=== PATIENT | female | born 1965 | race African-American/Black ===

== ENCOUNTER 2021-10-09 09:23 | Outpatient (CLI) | payer OTHER, SELFPAY ==
[2021-10-09 10:08] LABS: Appearance Urine Clear (Clear); Bilirubin Urine Negative (Negative); Blood Urine Negative (Negative); Color Urine Yellow (Yellow); Glucose Urine UA Negative (Negative); Ketones Urine Negative (Negative); Leukocyte Esterase Ur 2+ LEU/UL (Negative); Nitrate Urine Positive (Negative); Protein Urine Negative (Negative); Specific Grav Ur 1.015 (1.001-1.035); Urobilinogen Urine 0.2 mg/dL (<2.0); pH Urine 5.5 (5.0-9.0)
[2021-10-09 10:10] LABS: Alanine Aminotransferase 20 U/L (6-35); Albumin Level 4.3 g/dL (3.5-5.1); Alkaline Phosphatase 112 U/L (38-126); Anion Gap 7 mmol/L (8-16); Aspartate Amino Transferase 32 U/L (14-36); Bilirubin,Total < 0.1 mg/dL (0.2-1.3); Blood Urea Nitrogen 26 mg/dL (7-17); Carbon Dioxide 30 mmol/L (22-30); Chloride 101 mmol/L (98-107); Estimated Glomerular Filt Rate 31; Glucose 105 mg/dL (65-110); Potassium 3.4 mmol/L (3.4-5.0); Sodium 138 mmol/L (137-145)
[2021-10-09 11:24] LABS: Mucus Urine Rare /lpf; Squamous Epithelial Cell Urine Occasional /hpf (Few); WBC Urine 51-75 /hpf
[2021-10-09 11:37] LABS: Add Urine Microscopic? YES
== END 2021-10-09 09:24 | disposition home or self-care (01) ==
LOC: ANHLAB 09:26
PROVIDERS: PCP Family Medicine; Visit Provider Family Medicine
DX: N39.44 Nocturnal enuresis (principal)
CPT/HCPCS: 36415; 80053; 81001; 87077; 87086; 87088; 87186

== ENCOUNTER 2024-12-19 02:30 | Inpatient (IN) | payer OTHER, SELFPAY ==
[2024-12-19] VITALS (29 sets, daily range): BP systolic 95–119; BP diastolic 45–89; PULSE 70–94; RESP 15–28; TEMP 36.7–37.7; O2SAT 97–100; BMI 20.8
--- NOTE | 2024-12-19 | ECHO_ITS ---
Patient Info Name: Jessica Carpio Age: 59 years : 1965 Gender: Female Ht: 63 in Wt: 114 lbs BSA: 1.51 m2 HR: 78 bpm BP: 117 / 89 mmHg Technical Quality: Good Exam Date: 12/19/2024 9:01 AM Patient Status: I Admit Date: 12/19/2024 Exam Type: CA echo doppler color flow Complete two-dimensional, color flow and Doppler transthoracic echocardiogram is performed. Staff Referring Physician: Costa Oliva Process Coordinator: Brandi Ellison Attending Provider: Kal Tran Summary 1. Complete two-dimensional, color flow and Doppler transthoracic echocardiogram is performed. 2. Left ventricular systolic function is normal, estimated at 60-65. 3. There is mildly increased left ventricular wall thickness. 4. The left ventricular diastolic function is grade II diastolic dysfunction. 5. Left atrial chamber dimension is mildly enlarged. 6. The mitral valve has thickened leaflets. 7. There is mild mitral valve stenosis. 8. There is moderate mitral valve regurgitation. 9. There is mild to moderate tricuspid valve regurgitation. 10. Moderate pulmonary hypertension, estimated pulmonary arterial systolic pressure is 54 mmHg. Left Ventricle Left ventricular chamber dimension is normal. Left ventricular systolic function is normal, estimated at 60-65. There is mildly increased left ventricular wall thickness. Left ventricular septal wall motion is normal. The left ventricular diastolic function is grade II diastolic dysfunction. Right Ventricle Right ventricular chamber dimension is normal. Right ventricular systolic function is normal. Left Atria Left atrial chamber dimension is mildly enlarged. Right Atria Right atrial chamber dimension is normal. Aortic Valve The aortic valve is trileaflet. There is no aortic valve sclerosis. There is no aortic valve stenosis. There is no aortic valve regurgitation. Pulmonic Valve The pulmonic valve is normal. There is no pulmonic valve stenosis. There is mild pulmonic regurgitation. Mitral Valve The mitral valve has thickened leaflets. There is mild mitral valve stenosis. There is moderate mitral valve regurgitation. Tricuspid Valve The tricuspid valve leaflets are normal. There is no significant tricuspid valve stenosis. There is mild to moderate tricuspid valve regurgitation. Moderate pulmonary hypertension, estimated pulmonary arterial systolic pressure is 54 mmHg. Pericardium/Pleural The pericardium appears normal. There is no pericardial effusion. Inferior Vena Cava Normal inferior vena cava with >50% collapse upon inspiration consistent with normal right atrial pressure, 5 mmHg. Aorta The aortic root size at the sinus of Valsalva is normal. The prox ascending aorta size is normal. Left Ventricular Outflow Tract Name Value Normal LVOT 2D LVOT Diameter 1.7 cm LVOT Doppler LVOT Peak Velocity 143 cm/s LVOT Peak Gradient 8 mmHg LVOT Mean Gradient 5 mmHg LVOT VTI 28 cm LVOT Stroke Volume 63 ml LVOT CO 4.9 l/min LVOT CI 3.3 l/min/m2 Pulmonic Valve Name Value Normal RVOT Doppler RVOT Peak Velocity 79 cm/s RVOT Peak Gradient 2 mmHg PV Doppler PV Peak Velocity 123 cm/s PV Peak Gradient 6 mmHg Mitral Valve Name Value Normal MV Doppler MV Peak Gradient 19 mmHg MV Mean Gradient 10 mmHg MV Area (Cont Eq VTI) 0.8 cm2 MV Diastolic Function MV E Peak Velocity 174 cm/s MV A Peak Velocity 179 cm/s MV E/A 1.0 MV Decel Time (PW) 470 ms MV Annular TDI MV E/e' (Septal) 26.2 MV E/e' (Lateral) 24.6 MV E/e' (Average) 25.4 Tricuspid Valve Name Value Normal TV Regurgitation Doppler TR Peak Velocity 348 cm/s TR Peak Gradient 49 mmHg Estimated PAP/RSVP RA Pressure 5 mmHg <=5 PA Systolic Pressure 54 mmHg <36 RV Systolic Pressure 54 mmHg <36 TV Annular TDI TV Lateral Anjelica s' Velocity 10.1 cm/s >=9.5 Aortic Valve Name Value Normal AV Doppler AV Peak Velocity 188 cm/s AV Peak Gradient 14 mmHg AV Area (Cont Eq Suresh) 1.7 cm2 AV DI (Suresh) 0.76 AV Regurgitation 2D LVOT Area 2.2 cm2 Ventricles Name Value Normal LV Dimensions 2D/MM IVS Diastolic Thickness (2D) 0.7 cm 0.6-1.0 LVID Diastole (2D) 4.3 cm 3.8-5.2 LVIW Diastolic Thickness (2D) 1.1 cm 0.6-0.9 LVID Systole (2D) 2.8 cm 2.2-3.5 LVOT Diameter 1.7 cm LV Mass (2D Cubed) 124.96 g 67.00-162.00 LV Mass Index (2D Cubed) 83 g/m2 43-95 Relative Wall Thickness (2D) 0.51 <=0.42 LV Fractional Shortening/Ejection Fraction 2D/MM LV Fractional Shortening (2D) 35 % 27-45 LV EF (2D Teichholz) 64 % LV Diastolic Volume (4C MOD) 72 ml LV EF (4C MOD) 66 % LV Diastolic Volume (2C MOD) 71 ml LV EF (2C MOD) 64 % LV Diastolic Volume (BP MOD) 73 ml 46-106 LV Diastolic Volume Index (BP MOD) 48 ml/m2 29-61 LV Systolic Volume (BP MOD) 27 ml 14-42 LV Systolic Volume Index (BP MOD) 18 ml/m2 8-24 LV EF (BP MOD) 63 % 54-74 LV Diastolic Length (4C) 6.8 cm LV Systolic Length (4C) 6.1 cm LV Stroke Volume (4C MOD) 48 ml Atria Name Value Normal LA Dimensions LA Volume (4C A-L) 75 ml LA Volume (BP A-L) 76 ml RA Dimensions RA Systolic [place] Length (4C) 4.4 cm 2.2-2.8 RA Area (4C) 11.7 cm2 <=18.0 Report Signatures
--- NOTE | ~2024-12-19 | XR_ITS ---
EXAMINATION: XR chest 2V, 12/19/2024 3:05 CDT HISTORY: CHEST PAIN, SOB COMPARISON: No comparisons available. Technique: 2 views obtained. Findings: Scattered bilateral small infiltrates. No pneumothorax. Heart is normal size. Mediastinal and hilar contours are within normal limits. Bony thorax no acute abnormality. Impression: Early bilateral pneumonia Reviewed, dictated and finalized at location A. Impression: Early bilateral pneumonia
--- NOTE | ~2024-12-19 | CT_ITS ---
EXAMINATION: CTA chest PE protocol, 12/19/2024 4:15 CDT HISTORY: Sudden onset Cp radiating to back COMPARISON: No comparisons available. TECHNIQUE: CTA examination is obtained with contrast CTA examination technique is performed with arterial phase of contrast-enhancement. 3-D reconstruction with thin MIP axial and MPR coronal imaging is provided Isovue 300, 92cc injected IV. One or more of the following dose reduction techniques were used: automated exposure control, adjustment of the mA and/or kV according to patient size, use of iterative reconstruction technique. FINDINGS: No significant coronary calcification is present ([id number]) LUNGS: The contrast bolus is adequate, There is no pulmonary embolism identified. Tracheomalacia. No bronchiectasis. Moderate emphysematous changes. Moderate pulmonary fibrotic changes with honeycombing noted. Scattered bilateral small infiltrates are noted with associated bilateral areas of linear ate lectasis. There is more focal infiltrate with bronchial wall thickening noted in the right upper lobe. HEART AND PERICARDIUM: Within normal limits. AORTA: Normal caliber aorta.. PULMONARY ARTERIES: No pulmonary embolism ADENOPATHY/MEDIASTINUM: None. LIMITED VIEWS OF THE ABDOMEN: Within the visualized abdomen there is atrophy of the right kidney. Cholelithiasis. OSSEOUS STRUCTURES: No sclerotic or lytic lesions. No acute rib fractures identified. OVERLYING SOFT TISSUES: Unremarkable. THYROID: The thyroid is unremarkable. IMPRESSION: Negative for pulmonary embolism. Bilateral probable bronchopneumonia superimposed on chronic lung disease. Follow-up recommended to assess Reviewed, dictated and finalized at location A. IMPRESSION: Negative for pulmonary embolism. Bilateral probable bronchopneumonia superimpos ed on chronic lung disease. Follow-up recommended to assess
--- NOTE | 2024-12-19 02:36 | ECG_ITS ---
Test Date: 2024-12-19 02:33:38 Measurements Intervals [place] Rate: 79 P: 46 VA: 158 QRS: 12 QRSD: 90 T: 16 QT: 364 QTc: 418 Interpretive Statements SINUS RHYTHM POSSIBLE LEFT ATRIAL ENLARGEMENT ST ELEVATION IN DIFFUSE LEADS, PROBABLY EARLY REPOLARIZATION BORDERLINE ECG No previous ECG available for comparison Electronically Signed On 12-19-2024 08:12:20 CDT by Elfego Degroot D.O.
[2024-12-19 02:55] LABS: Hematocrit 35.0 % (37.0-47.0); Hemoglobin 10.8 g/dL (12.0-15.0); Immature Granulocyte Percent A 0.4 % (0-0.5); Lymphocytes Absolute Auto 0.68 K/mm3 (0.9-3.2); Mean Corpuscular HGB Conc 30.9 g/dl (32-36); Mean Corpuscular Hemoglobin 26.7 pg (26-34); Mean Corpuscular Volume 86.4 fl (80-100); Nucleated Red Blood Cells Absolute Auto 0.000 K/mm3 (0.0-0.012); Nucleated Red Blood Cells Perc 0.0 % (0.0-0.2); Platelet Count Result 239 k/mm3 (150-375); Red Blood Count 4.05 M/mm3 (4.2-5.4); White Blood Count 14.8 K/mm3 (4.5-10.0)
[2024-12-19 03:06] LABS: Alanine Aminotransferase 32 U/L (6-35); Albumin Level 4.4 g/dL (3.5-5.1); Alkaline Phosphatase 91 U/L (38-126); Anion Gap 10 mmol/L (4-12); Aspartate Amino Transferase 56 U/L (14-36); Bilirubin,Total 0.2 mg/dL (0.2-1.3); Blood Urea Nitrogen 34 mg/dL (7-17); Calcium 9.3 mg/dL (8.4-10.2); Carbon Dioxide 25 mmol/L (22-30); Chloride 102 mmol/L (98-107); Estimated CRCL calculation 22 ml/min; Estimated Glomerular Filt Rate 25; Glucose 135 mg/dL (65-110); Lipase 35 U/L (23-300); Potassium 4.3 mmol/L (3.4-5.0); Sodium 137 mmol/L (137-145); Total Protein 7.4 g/dL (6.3-8.2)
[2024-12-19 03:09] LABS: INR 1.0; Prothrombin Time 13.0 Seconds (11.1-14.7)
[2024-12-19 03:10] LABS: Partial Thromboplastin Time 26.0 Seconds (22.3-36.8)
[2024-12-19 03:18] LABS: Troponin I < 0.012 ng/mL (0.000-0.034)
[2024-12-19] MEDS: ACETAMINOPHEN 500 MG TABLET 1000 MG PO (04:40)
[2024-12-19 05:20] LABS: NT Pro B Type Natriuretic Pept 1880 pg/mL (19.9-100)
--- NOTE | 2024-12-19 05:38 | ECG_ITS ---
Test Date: 2024-12-19 05:48:37 Measurements Intervals [place] Rate: 87 P: 21 RI: 148 QRS: 33 QRSD: 85 T: 37 QT: 343 QTc: 413 Interpretive Statements SINUS RHYTHM ST ELEVATION IN DIFFUSE LEADS- PROBABLY EARLY REPOLARIZATION BORDERLINE ECG Compared to ECG 12/19/2024 02:33:38 NO SIGNIFICANT CHANGE Electronically Signed On 12-19-2024 08:13:44 CDT by Elfego Degroot D.O.
--- NOTE | 2024-12-19 05:43 | ED_ITS ---
HPI - General Adult General Chief complaint: Chest Pain <Costa Oliva MD - Last Filed: 12/19/24 07:08> Stated complaint: chest pain <Costa Oliva MD - Last Filed: 12/19/24 07:08> Time Seen by Provider: 12/19/24 03:30 <Costa Oliva MD - Last Filed: 12/19/24 07:08> History of Present Illness HPI narrative: This is a 59-year-old female with a history of lupus presenting for chest pain. Patient says that and will 30 a.m. she developed a sharp pain across her chest radiating into her back. It woke her from sleep. It was severe but is now improving. It is worse with deep breaths. It is worse when she leans forward. Is not associated exertion, diaphoresis or vomiting. No fevers productive cough or viral symptoms. No GI symptoms. Patient takes hydroxychloroquine for her lupus. No history of lupus pleurisy. <Costa Oliva MD - Last Filed: 12/19/24 07:08> Related Data Home medications: Home Medications ?Medication ?Instructions ?Recorded ?Confirmed ?Last Taken ?Type acyclovir 800 mg tablet 800 mg PO 02/25/23 11/26/24 Unknown History atorvastatin 20 mg tablet 20 mg PO 02/25/23 11/26/24 U nknown History furosemide 40 mg tablet 40 mg PO 02/25/23 11/26/24 U nknown History gabapentin 600 mg tablet 600 mg PO 02/25/23 11/26/24 Unknown History hydroxychloroquine 200 mg tablet mg PO 02/25/23 Unknown History hydroxyzine pamoate 25 mg capsule 25 mg PO QHS 3 11/26/24 Unknown History linaclotide 72 mcg capsule mcg PO 02/25/23 11/26/24 Un known History (Juanazess) lisinopril 5 mg tablet mg PO 02/25/23 11/26/24 Unkn own History omeprazole 40 mg capsule,delayed mg PO 02/25/23 Unknown History release oxybutynin chloride 10 mg mg PO 02/25/23 11/26/24 Unkn own History tablet,extended release 24 hr tramadol 50 mg tablet mg PO 02/25/23 11/26/24 Unkn own History varenicline tartrate 1 mg tablet 1 mg PO ONCE 12/19/24 12/19/24 Unknown History <Costa Oliva MD - Last Filed: 12/19/24 07:08> Allergies/adverse reactions: Allergies Allergy/AdvReac Type Severity Reaction Status Date / Time No Known Allergies Allergy Verified 12/19/24 02:36 <Costa Oliva MD - Last Filed: 12/19/24 07:08> [facility] Past Medical History Medical History: Medical History Bowel obstruction History of systemic lupus erythematosus (SLE) History of depression History of hypertension <Costa Oliva MD - Last Filed: 12/19/24 07:08> Surgical History Surgical History: Surgical History History of appendectomy H/O foot surgery History of tonsillectomy <Costa Oliva MD - Last Filed: 12/19/24 07:08> Social History Social History: Social History Smoking status: Current every day smoker Tobacco type: cigarettes Alcohol intake: current Alcohol use details: occasional Substance use: never Current Housing: Decline to Answer Concerned About Future Housing: Decline to Answer Difficulty Paying Gas/Electric Bills: Decline to Answer Difficulty Paying for Meds: Decline to Answer Currently Unemployed: Decline to Answer Living arrangements: with family Occupation/Education: occupation Gender identity (if verbalized by the patient): Female <Costa Oliva MD - Last Filed: 12/19/24 07:08> Exam 2 Narrative: APPEARANCE: Patient appears uncomfortable Head: atraumatic. EYES: EOMI, NOSE: Atraumatic NECK: Trachea midline RESPIRATORY: No increased rate breathing, clear to auscultation, friction rub in the left lower lobe CARDIOVASCULAR: RRR, no peripheral edema ABDOMINAL: Non-distended soft nontender MUSCULOSKELETAl: No obvious deformities NEURO: Alert. Moving 4/4 extremities SKIN:: Hot to touch PSYCHIATRIC: Normal affect <Costa Oliva MD - Last Filed: 12/19/24 07:08> Course Vital Signs Vital signs: Vital Signs Temperature 98.0 F 12/19/24 02:29 Pulse Rate 82 12/19/24 02:29 Respiratory Rate 18 12/19/24 02:29 Blood Pressure 118/63 12/19/24 02:29 Pulse Oximetry 99 12/19/24 02:29 Oxygen Delivery Room Air 12/19/24 02:29 Temperature 98.6 F 12/19/24 07:38 Pulse Rate 78 12/19/24 07:38 Respiratory Rate 17 12/19/24 07:38 Blood Pressure 119/69 12/19/24 07:38 Pulse Oximetry 97 12/19/24 07:38 Oxygen Delivery Room Air 12/19/24 02:37 <Costa Oliva MD - Last Filed: 12/19/24 07:08> Vital Signs Temperature 98.0 F 12/19/24 02:29 Pulse Rate 82 12/19/24 02:29 Respiratory Rate 18 12/19/24 02:29 Blood Pressure 118/63 12/19/24 02:29 Pulse Oximetry 99 12/19/24 02:29 Oxygen Delivery Room Air 12/19/24 02:29 Temperature 98.6 F 12/19/24 07:38 Pulse Rate 78 12/19/24 07:38 Respiratory Rate 17 12/19/24 07:38 Blood Pressure 119/69 12/19/24 07:38 Pulse Oximetry 97 12/19/24 07:38 Oxygen Delivery Room Air 12/19/24 02:37 <Art Rose MD - Last Filed: 12/19/24 08:16> Medical Decision Making MDM Narrative Medical decision making narrative: -Course: 59-year-old female with lupus presenting with sudden pleuritic chest pain. CTA-PE was negative PE. It showed interstitial thickening and scarring in the right upper lobe with possible overlying infection. No pleural effusions. Negative for dissection or aneurysm. No cardiomegaly. White count was elevated 14.8. EKG with diffuse ST elevations, with [place] depressions and reciprocal changes in AVR which are concerning for pericarditis. Patient was then re-evaluated and is now hot to the touch. Temperature at 99.9? and that was after she had already received Tylenol. Blood pressures are 102/60. Patient started on ceftriaxone and doxycycline to cover pneumonia. Given a 30 cc/kilogram LR bolus. Discussed the case with my hospitalist and reception clerk who are uncomfortable managing the patient w/o rheumatology. The [facility] transfer line has been contacted. Patient was signed out to the oncoming physician pending transfer. -DDX includes but is not limited to: Lupus pleurisy, pericarditis, PE, dissection pneumonia -Co-morbidities complicating care: Lupus, CKD IV, HTN <Costa Oliva MD - Last Filed: 12/19/24 07:08> -Course: 59-year-old female with lupus presenting with sudden pleuritic chest pain. CTA-PE was negative PE. It showed interstitial thickening and scarring in the right upper lobe with possible overlying infection. No pleural effusions. Negative for dissection or aneurysm. No cardiomegaly. White count was elevated 14.8. EKG with diffuse ST elevations, with [place] depressions and reciprocal changes in AVR which are concerning for pericarditis. Patient was then re-evaluated and is now hot to the touch. Temperature at 99.9? and that was after she had already received Tylenol. Blood pressures are 102/60. Patient started on ceftriaxone and doxycycline to cover pneumonia. Given a 30 cc/kilogram LR bolus. Discussed the case with my hospitalist and reception clerk who are uncomfortable managing the patient w/o rheumatology. The [facility] transfer line has been contacted. Patient was signed out to the oncoming physician pending transfer. -DDX includes but is not limited to: Lupus pleurisy, pericarditis, PE, dissection pneumonia -Co-morbidities complicating care: Lupus, CKD IV, HTN Case was discussed with the hospitalist at [facility] and patient was accepted for transfer. I did request to discussed the case with Rheumatology and transfer services stated this was not possible. Hospitals had no further recommendations for treatment. I discussed the case with the hospitalist at [facility] and patient will be admitted pending transfer to [facility]. Patient and family were updated on the ultimate transfer to [facility] and admission to [facility] in the interim. Patient does have scheduled doxy, scheduled Rocephin and scheduled dexamethasone were. Patient also has p.r.n. medications for pain control. At time of admission patient's vital signs were stable and patient's blood pressure was improved. Patient was in no distress at time of admission. <Art Rose MD - Last Filed: 12/19/24 08:16> Vital Signs Vital Signs: Vital Signs Temperature 98.0 F 12/19/24 02:29 Pulse Rate 82 12/19/24 02:29 Respiratory Rate 18 12/19/24 02:29 Blood Pressure 118/63 12/19/24 02:29 Pulse Oximetry 99 12/19/24 02:29 Oxygen Delivery Room Air 12/19/24 02:29 Temperature 98.6 F 12/19/24 07:38 Pulse Rate 78 12/19/24 07:38 Respiratory Rate 17 12/19/24 07:38 Blood Pressure 119/69 12/19/24 07:38 Pulse Oximetry 97 12/19/24 07:38 Oxygen Delivery Room Air 12/19/24 02:37 <Costa Oliva MD - Last Filed: 12/19/24 07:08> Vital Signs Temperature 98.0 F 12/19/24 02:29 Pulse Rate 82 12/19/24 02:29 Respiratory Rate 18 12/19/24 02:29 Blood Pressure 118/63 12/19/24 02:29 Pulse Oximetry 99 12/19/24 02:29 Oxygen Delivery Room Air 12/19/24 02:29 Temperature 98.6 F 12/19/24 07:38 Pulse Rate 78 12/19/24 07:38 Respiratory Rate 17 12/19/24 07:38 Blood Pressure 119/69 12/19/24 07:38 Pulse Oximetry 97 12/19/24 07:38 Oxygen Delivery Room Air 12/19/24 02:37 <Art Rose MD - Last Filed: 12/19/24 08:16> Lab Data Result diagrams: 12/19/24 02:49 12/19/24 02:49 <Costa Oliva MD - Last Filed: 12/19/24 07:08> Labs: Lab Results 12/19/24 12/19/24 12/19/24 Range/Units 02:49 05:44 07:12 WBC 14.8 H (4.5-10.0) K/mm3 RBC 4.05 L (4.2-5.4) M/mm3 Hgb 10.8 L (12.0-15.0) g/dL Hct 35.0 L (37.0-47.0) % MCV 86.4 (80-100) fl MCH 26.7 (26-34) pg MCHC 30.9 L (32-36) g/dl RDW 15.5 H (11.5-14.5) % Plt Count 239 (150-375) k/mm3 MPV 10.6 H (7.4-10.4) fl Immature Gran % (Auto) 0.4 (0-0.5) % Neut % (Auto) 86.9 H (45.5-73.1) % Lymph % (Auto) 4.6 L (18.3-44.2) % [place] % (Auto) 5.2 (2.6-8.5) % Eos % (Auto) 2.8 (0-4.4) % Baso % (Auto) 0.1 L (0.2-1.2) % Lymph # (Auto) 0.68 L (0.9-3.2) K/mm3 [place] # (Auto) 0.8 H (0.1-0.6) K/mm3 Eos # (Auto) 0.4 H (0-0.3) K/mm3 Baso # (Auto) 0.0 (0.0-0.1) K/mm3 Abs Immat Gran (auto) 0.06 H (0.00-0.031) K/mm3 Absolute Neuts (auto) 12.9 H (1.3-6.7) K/mm3 Absolute Nucleated RBC 0.000 (0.0-0.012) K/mm3 Nucleated RBC % 0.0 (0.0-0.2) % ESR 28 H (0-20) mm/hr PT 13.0 (11.1-14.7) Seconds INR 1.0 APTT 26.0 (22.3-36.8) Seconds Sodium 137 (137-145) mmol/L Potassium 4.3 (3.4-5.0) mmol/L Chloride 102 (98-107) mmol/L Carbon Dioxide 25 (22-30) mmol/L Anion Gap 10 (4-12) mmol/L BUN 34 H (7-17) mg/dL Creatinine 2.02 H (0.7-1.0) mg/dL Estim Creat Clear Calc 22 ml/min Estimated GFR 25 L (59 - ) Glucose 135 H (65-110) mg/dL Calcium 9.3 (8.4-10.2) mg/dL Total Bilirubin 0.2 (0.2-1.3) mg/dL AST 56 H (14-36) U/L ALT 32 (6-35) U/L Alkaline Phosphatase 91 (38-126) U/L Troponin I < 0.012 < 0.012 (0.000-0.034) ng/mL C-Reactive Protein 3.1 H (<1.0) mg/dL NT-Pro-B Natriuret Pep 1880 H (19.9-100) pg/mL Total Protein 7.4 (6.3-8.2) g/dL Albumin 4.4 (3.5-5.1) g/dL Lipase 35 (23-300) U/L Prolactin Pending Complement C4 Pending Influenza A (RT-PCR) Negative (Negative) Influenza B (RT-PCR) Negative (Negative) RSV (RT-PCR) Negative (Negative) SARS-CoV-2 RNA (RT-PCR) Negative (Negative) <Costa Oliva MD - Last Filed: 12/19/24 07:08> Lab Results 12/19/24 12/19/24 12/19/24 Range/Units 02:49 05:44 07:12 WBC 14.8 H (4.5-10.0) K/mm3 RBC 4.05 L (4.2-5.4) M/mm3 Hgb 10.8 L (12.0-15.0) g/dL Hct 35.0 L (37.0-47.0) % MCV 86.4 (80-100) fl MCH 26.7 (26-34) pg MCHC 30.9 L (32-36) g/dl RDW 15.5 H (11.5-14.5) % Plt Count 239 (150-375) k/mm3 MPV 10.6 H (7.4-10.4) fl Immature Gran % (Auto) 0.4 (0-0.5) % Neut % (Auto) 86.9 H (45.5-73.1) % Lymph % (Auto) 4.6 L (18.3-44.2) % [place] % (Auto) 5.2 (2.6-8.5) % Eos % (Auto) 2.8 (0-4.4) % Baso % (Auto) 0.1 L (0.2-1.2) % Lymph # (Auto) 0.68 L (0.9-3.2) K/mm3 [place] # (Auto) 0.8 H (0.1-0.6) K/mm3 Eos # (Auto) 0.4 H (0-0.3) K/mm3 Baso # (Auto) 0.0 (0.0-0.1) K/mm3 Abs Immat Gran (auto) 0.06 H (0.00-0.031) K/mm3 Absolute Neuts (auto) 12.9 H (1.3-6.7) K/mm3 Absolute Nucleated RBC 0.000 (0.0-0.012) K/mm3 Nucleated RBC % 0.0 (0.0-0.2) % ESR 28 H (0-20) mm/hr PT 13.0 (11.1-14.7) Seconds INR 1.0 APTT 26.0 (22.3-36.8) Seconds Sodium 137 (137-145) mmol/L Potassium 4.3 (3.4-5.0) mmol/L Chloride 102 (98-107) mmol/L Carbon Dioxide 25 (22-30) mmol/L Anion Gap 10 (4-12) mmol/L BUN 34 H (7-17) mg/dL Creatinine 2.02 H (0.7-1.0) mg/dL Estim Creat Clear Calc 22 ml/min Estimated GFR 25 L (59 - ) Glucose 135 H (65-110) mg/dL Calcium 9.3 (8.4-10.2) mg/dL Total Bilirubin 0.2 (0.2-1.3) mg/dL AST 56 H (14-36) U/L ALT 32 (6-35) U/L Alkaline Phosphatase 91 (38-126) U/L Troponin I < 0.012 < 0.012 (0.000-0.034) ng/mL C-Reactive Protein 3.1 H (<1.0) mg/dL NT-Pro-B Natriuret Pep 1880 H (19.9-100) pg/mL Total Protein 7.4 (6.3-8.2) g/dL Albumin 4.4 (3.5-5.1) g/dL Lipase 35 (23-300) U/L Prolactin Pending Complement C4 Pending Influenza A (RT-PCR) Negative (Negative) Influenza B (RT-PCR) Negative (Negative) RSV (RT-PCR) Negative (Negative) SARS-CoV-2 RNA (RT-PCR) Negative (Negative) <Art Rose MD - Last Filed: 12/19/24 08:16> Discharge Plan Discharge Clinical Impression: Pericarditis, Lupus, PNA (pneumonia) <Costa Oliva MD - Last Filed: 12/19/24 07:08> Patient Disposition: [facility] <Costa Oliva MD - Last Filed: 12/19/24 07:08> Condition: Stable <Costa Oliva MD - Last Filed: 12/19/24 07:08> Patient Language: Georgian <Costa Oliva MD - Last Filed: 12/19/24 07:08> Prescriptions: No Action furosemide 40 mg tablet 40 mg PO DAILY gabapentin 600 mg tablet 600 mg PO Q8H oxybutynin chloride 10 mg tablet extended release 24hr 10 mg PO QID acyclovir 800 mg tablet 800 mg PO Q12H atorvastatin 20 mg tablet 20 mg PO QAM hydroxyzine pamoate 25 mg capsule 25 mg PO QHS lisinopril 5 mg tablet 10 mg PO DAILY Linzess 72 mcg capsule 145 mcg PO DAILY omeprazole 40 mg capsule,delayed release(DR/EC) 40 mg PO QID tramadol 50 mg tablet 50 mg PO PRN hydroxychloroquine 200 mg tablet 200 mg PO DAILY varenicline tartrate 1 mg tablet 1 mg PO ONCE <Costa Oliva MD - Last Filed: 12/19/24 07:08> Follow-up/Referrals: Hoang,Italo Seay MD [Primary Care Provider] <Costa Oliva MD - Last Filed: 12/19/24 07:08>
[2024-12-19] MEDS: dexAMETHasone SOD PHOS INJ 10 MG/ML 1 ML VIAL IV PUSH (05:50)
[2024-12-19 06:28] LABS: Troponin I < 0.012 ng/mL (0.000-0.034)
[2024-12-19] MEDS: LACTATED RINGERS 700 ML 999 ML IV CONT (06:49)
[2024-12-19] MEDS: LACTATED RINGERS 1,000 ML 999 ML IV CONT (06:49)
--- NOTE | 2024-12-19 07:27 | PC.NURSE ---
Clarita from [facility] transfer center states they are working on getting pt a medical bed and it would take a few days. EDP Dr Rose aware, charge entry clerk aware, pt and family at bedside have been updated.
[2024-12-19] MEDS: cefTRIAXone 1 GM in SODIUM CHLORIDE 0.9% IV 50 ML 100 ML IVPB (07:36)
--- NOTE | 2024-12-19 07:40 | PM.IMHP ---
H&P: HPI History of Present Illness Date/Time: 12/19/24 07:40 Chief Complaint: Chest pain Narrative: Patient is a 59-year-old female with a past medical history of systemic lupus erythematosus, bowel obstruction, depression, and hypertension who presented to the ED due to chest pain?as per the patient, chest pain started around 3:00 a.m., which was sharp and radiated to the back. It woke her from sleep, and the condition worsens with deep breathing, as well as when she leans forward. Denies any diaphoresis, nausea, or vomiting. Regarding a lupus patient, the patient takes hydroxychloroquine 200 mg once daily. The patient also takes Linzess for IBS. During the evaluation in the ED, the patient had evidence of diffuse test elevation indicating pericarditis. Cardiology was consulted, who agrees to be on board, but due to her history of lupus, wanted Rheumatology backup. The ED physician called [facility], and she was accepted pending transfer. The patient is admitted to the IMU until a transfer is pending. 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 Patient seen incubator operator year ago and has a follow-up appointment next month. Five days ago, the patient was with her granddaughter, who was sick, and the next day, the patient got flu-like symptoms but recovered without medical treatment. Review of Systems Review of Systems: Except as documented, all other systems were reviewed and are negative. [facility] Past Medical History Medical History Bowel obstruction History of systemic lupus erythematosus (SLE) History of depression History of hypertension Surgical History Surgical History History of appendectomy H/O foot surgery History of tonsillectomy Social History Social History Years smoked: 40 Smoking status: Current every day smoker Tobacco type: cigarettes Alcohol intake: never Alcohol use details: occasional Substance use: never Lack of Transportation: YES Lack of Food: Never True Current Housing: I Have Housing Concerned About Future Housing: No Difficulty Paying Gas/Electric Bills: No Difficulty Paying for Meds: No Currently Unemployed: No Education: Don't Know Difficulty w/ Childcare or Family Care: No Living arrangements: with family Occupation/Education: occupation Gender identity (if verbalized by the patient): Female Spiritual care concerns: No Meds Home Medications and Allergies Home Medications ?Medication ?Instructions ?Recorded ?Confirmed ?Type acyclovir 800 mg tablet 800 mg PO Q12H 02/25/23 12/19/24 History atorvastatin 20 mg tablet 20 mg PO QAM 02/25/23 12/19/24 History furosemide 40 mg tablet 40 mg PO DAILY 02/25/23 12/19/24 History gabapentin 600 mg tablet 600 mg PO Q8H 02/25/23 12/19/24 History hydroxychloroquine 200 mg tablet 200 mg PO DAILY 02/25/23 12/19/24 History hydroxyzine pamoate 25 mg capsule 25 mg PO QHS 02/25/23 12/19/24 History linaclotide 72 mcg capsule 145 mcg PO DAILY 02/25/23 12/19/24 History (Linzess) lisinopril 5 mg tablet 10 mg PO DAILY 02/25/23 12/19/24 History omeprazole 40 mg capsule,delayed 40 mg PO QID 02/25/23 12/19/24 History release oxybutynin chloride 10 mg 10 mg PO QID 02/25/23 12/19/24 History tablet,extended release 24 hr tramadol 50 mg tablet 50 mg PO PRN 02/25/23 12/19/24 History varenicline tartrate 1 mg tablet 1 mg PO ONCE 12/19/24 12/19/24 History Allergies Allergy/AdvReac Type Severity Reaction Status Date / Time No Known Allergies Allergy Verified 12/19/24 02:36 Vital Signs Vital Signs - 24 hr 12/19/24 02:29 12/19/24 02:37 12/19/24 03:51 Temperature 98.0 F Pulse Rate 82 83 Respiratory Rate 18 20 Blood Pressure 118/63 110/62 Pulse Oximetry 99 100 98 Oxygen Delivery Room Air Room Air 12/19/24 03:57 12/19/24 04:00 12/19/24 04:01 Temperature Pulse Rate 82 86 82 Respiratory Rate 17 23 H 28 H Blood Pressure 100/73 Pulse Oximetry 97 100 99 Oxygen Delivery 12/19/24 04:15 12/19/24 04:39 12/19/24 04:43 Temperature Pulse Rate 82 84 83 Respiratory Rate 21 H 17 15 Blood Pressure 108/58 L Pulse Oximetry 99 Oxygen Delivery 12/19/24 04:45 12/19/24 05:00 12/19/24 05:01 Temperature Pulse Rate 83 83 83 Respiratory Rate 18 23 H 19 Blood Pressure 118/53 L Pulse Oximetry Oxygen Delivery 12/19/24 05:15 12/19/24 05:30 12/19/24 05:31 Temperature Pulse Rate 84 81 82 Respiratory Rate 22 H 22 H 22 H Blood Pressure 102/60 Pulse Oximetry 99 Oxygen Delivery 12/19/24 05:45 12/19/24 05:58 12/19/24 07:29 Temperature 99.9 F H Pulse Rate 86 94 79 Respiratory Rate 20 17 17 Blood Pressure 102/60 119/69 Pulse Oximetry 98 97 Oxygen Delivery 12/19/24 07:38 Temperature 98.6 F Pulse Rate 78 Respiratory Rate 17 Blood Pressure 119/69 Pulse Oximetry 97 Oxygen Delivery Exam Narrative: APPEARANCE: Patient appears uncomfortable Head: atraumatic. EYES: EOMI, NOSE: Atraumatic NECK: Trachea midline RESPIRATORY: No increased rate breathing, clear to auscultation, friction rub in the left lower lobe CARDIOVASCULAR: RRR, no peripheral edema ABDOMINAL: Non-distended soft nontender MUSCULOSKELETAl: No obvious deformities NEURO: Alert. Moving 4/4 extremities SKIN:: Hot to touch PSYCHIATRIC: Normal affect H&P: Results Labs Labs: Short CBC 12/19/24 Range/Units 02:49 WBC 14.8 H (4.5-10.0) K/mm3 Hgb 10.8 L (12.0-15.0) g/dL Hct 35.0 L (37.0-47.0) % Plt Count 239 (150-375) k/mm3 [facility] 12/19/24 02:49 Sodium 137 Potassium 4.3 Chloride 102 Carbon Dioxide 25 BUN 34 H Creatinine 2.02 H Glucose 135 H Calcium 9.3 Cardiac Enzymes 12/19/24 12/19/24 Range/Units 02:49 05:44 Troponin I < 0.012 < 0.012 (0.000-0.034) ng/mL Liver Function 12/19/24 Range/Units 02:49 Total Bilirubin 0.2 (0.2-1.3) mg/dL AST 56 H (14-36) U/L ALT 32 (6-35) U/L Alkaline Phosphatase 91 (38-126) U/L Albumin 4.4 (3.5-5.1) g/dL Assessment and Plan Assessment and plan (1) Pericarditis: Code(s): I31.9 - Disease of pericardium, unspecified Status: Acute Assessment and Plan: Satisfied the criteria for pericarditis EKG changes and pleuritic chest pain EKG shows diffuse ST elevation Echo pending Reviewed CBC CMP. Troponin< 0.012, ESR pending, CRP 3.1, BNP 1880 Due to history of lupus and CKD will continue dexamethasone from ED and start colchicine Colchicine 1.2 mg b.i.d. x 1 day Colchicine 0.6 mg p.o. q.d. from tomorrow No strenuous activity (2) Vaginal Discharge: Code(s): N89.8 - Other specified noninflammatory disorders of vagina Status: Acute Assessment and Plan: Recurrent vaginitis Managed as outpatient (3) Lupus: Status: Acute Assessment and Plan: Managed as outpatient Continue hydroxychloroquine 200 mg p.o. q.d. (4) CKD (chronic kidney disease): Code(s): N18.9 - Chronic kidney disease, unspecified Status: Acute Assessment and Plan: -Avoid nephrotoxic drugs. -Monitor antihypertensive drug therapy. -Avoid NSAIDs. -Routine CMP monitoring GFR. -Monitor electrolytes especially potassium. -Antibiotic doses depending on creatinine clearance. -Pharmacy does medications. -Cr stable 2.0 appears at baseline -Routine follow-up with Nephrology as an outpatient. Plan Pending transfer to [facility] Code status full code DVT prophylaxis Lovenox 40 subQ Hospitalist [facility] Advance Care Plan I have confirmed that the patient's Advanced Care Plan is present, code status is documented, or surrogate decision maker is listed in patient medical record.: Yes Medication Reconciliation I have utilized all available resources to obtain, update and review the patients current medications (includes all prescriptions, OTC, herbals, cannabis, and nutritional supplements).: Yes
[2024-12-19 07:47] LABS: CRP 3.1 mg/dL (<1.0)
[2024-12-19 07:58] LABS: Influenza A QL RT-PCR Negative (Negative); Influenza B QL RT-PCR Negative (Negative); RSV RNA, RT-PCR Negative (Negative); SARS-CoV-2 RNA PCR Negative (Negative)
--- NOTE | 2024-12-19 08:10 | ECG_ITS ---
Test Date: 2024-12-19 08:27:31 Measurements Intervals [place] Rate: 81 P: 24 HI: 155 QRS: 28 QRSD: 86 T: 29 QT: 351 QTc: 408 Interpretive Statements SINUS RHYTHM ST ELEVATION IN DIFFUSE LEADS- PROBABLY EARLY REPOLARIZATION BORDERLINE ECG Compared to ECG 12/19/2024 05:48:37 NO SIGNIFICANT CHANGE Electronically Signed On 12-19-2024 08:29:32 CDT by Elfego Degroot D.O.
[2024-12-19] MEDS: DOXYCYCLINE IV 100 MG in SODIUM CHLORIDE 0.9% IV 100 ML IVPB ×2 (08:16→20:42)
[2024-12-19] MEDS: dexAMETHasone SOD PHOS INJ 10 MG/ML 1 ML VIAL 6 MG IV PUSH (08:18)
[2024-12-19 08:51] LABS: Troponin I < 0.012 ng/mL (0.000-0.034)
--- NOTE | 2024-12-19 09:35 | ADMGEN ---
This patient, Jessica Carpio, was admitted to IMU Room 211-01. Patient/family oriented to hospital policies and general routines including ID bracelet, bed and alarms, visiting hours, pain management, procedures, bathroom and other care routines, personal items, smoking policy, room service/diet, and visiting hours. Information on how to activate the Rapid Response Team has been discussed. Patient/Family are encouraged to report perceived risks to care and to ask questions if they do not understand what they are told or what they should do.
[2024-12-19] MEDS: COLCHICINE 0.6 MG TABLET 1.2 MG PO ×2 (11:30→20:41)
[2024-12-19] MEDS: ATORVASTATIN 20 MG TABLET PO (11:30)
[2024-12-19] MEDS: HYDROXYCHLOROQUINE SULFATE 200 MG TABLET PO (11:30)
[2024-12-19] MEDS: FUROSEMIDE 40 MG TABLET PO (11:30)
[2024-12-19] MEDS: GABAPENTIN 300 MG CAPSULE 600 MG PO ×2 (11:30→20:42)
[2024-12-19] MEDS: ENOXAPARIN 30 MG/0.3 ML SYRINGE SUB-Q (11:31)
[2024-12-19] MEDS: PANTOPRAZOLE 40 MG TABLET PO (17:32)
[2024-12-19] MEDS: HYDROcodone/acetaminophen (*CRX) 5-325 MG TABLET 1 TAB PO ×2 (18:17→20:40)
--- NOTE | 2024-12-19 18:33 | PC.NURSE ---
Strong smell of marijuana in pts room. Pt asked if typewriter assembly and parts inspector can look through purse to ensure there is no marijuana vape. Pt refused to allow typewriter assembly and parts inspector to look in purse but was agreeable to empty belongings in bed. No marijuana found to be in pts belongings. Pt reports the smell came from family member who was visiting.
[2024-12-19] MEDS: HYDROmorphone HCL INJ (*CRX) 1 MG/ML SYR 0.5 MG IV PUSH (22:29)
[2024-12-20] VITALS (15 sets, daily range): BP systolic 100–128; BP diastolic 50–65; PULSE 66–96; RESP 15–20; TEMP 36.3–37.1; O2SAT 95–100
[2024-12-20] MEDS: HYDROcodone/acetaminophen (*CRX) 10-325 MG TABLET 1 TAB PO ×4 (03:12→18:41)
[2024-12-20 04:13] LABS: Hematocrit 28.9 % (37.0-47.0); Hemoglobin 9.2 g/dL (12.0-15.0); Mean Corpuscular HGB Conc 31.8 g/dl (32-36); Mean Corpuscular Hemoglobin 27.4 pg (26-34); Mean Corpuscular Volume 86.0 fl (80-100); Platelet Count Result 192 k/mm3 (150-375); Red Blood Count 3.36 M/mm3 (4.2-5.4); White Blood Count 16.4 K/mm3 (4.5-10.0)
[2024-12-20 04:35] LABS: Alanine Aminotransferase 24 U/L (6-35); Albumin Level 3.1 g/dL (3.5-5.1); Alkaline Phosphatase 75 U/L (38-126); Anion Gap 4 mmol/L (4-12); Aspartate Amino Transferase 35 U/L (14-36); Bilirubin,Total 0.1 mg/dL (0.2-1.3); Blood Urea Nitrogen 31 mg/dL (7-17); Calcium 9.1 mg/dL (8.4-10.2); Carbon Dioxide 28 mmol/L (22-30); Chloride 105 mmol/L (98-107); Estimated CRCL calculation 32 ml/min; Estimated Glomerular Filt Rate 40; Glucose 123 mg/dL (65-110); Potassium 4.3 mmol/L (3.4-5.0); Sodium 137 mmol/L (137-145); Total Protein 5.7 g/dL (6.3-8.2)
[2024-12-20] MEDS: GABAPENTIN 300 MG CAPSULE 600 MG PO ×3 (05:05→21:08)
[2024-12-20] MEDS: cefTRIAXone 1 GM in SODIUM CHLORIDE 0.9% IV 50 ML 100 ML IVPB (05:06)
[2024-12-20] MEDS: LINACLOTIDE 145 MCG CAPSULE PO (05:06)
[2024-12-20] MEDS: DOXYCYCLINE IV 100 MG in SODIUM CHLORIDE 0.9% IV 100 ML IVPB ×2 (08:20→21:09)
[2024-12-20] MEDS: ENOXAPARIN 30 MG/0.3 ML SYRINGE SUB-Q (08:20)
[2024-12-20] MEDS: oxyBUTYnin CHLORIDE XL 5 MG TAB.ER.24 10 MG PO (08:21)
[2024-12-20] MEDS: ACYCLOVIR 400 MG TABLET 800 MG BY MOUTH (08:21)
[2024-12-20] MEDS: HYDROXYCHLOROQUINE SULFATE 200 MG TABLET PO (08:22)
[2024-12-20] MEDS: FUROSEMIDE 40 MG TABLET PO (08:22)
[2024-12-20] MEDS: dexAMETHasone SOD PHOS INJ 10 MG/ML 1 ML VIAL 6 MG IV PUSH (08:23)
[2024-12-20] MEDS: ATORVASTATIN 20 MG TABLET PO (08:23)
[2024-12-20] MEDS: PANTOPRAZOLE 40 MG TABLET PO ×2 (08:23→16:51)
--- NOTE | 2024-12-20 09:36 | PM.IMPN ---
Progress Note: A&P Assessment and Plan (1) Pericarditis: Code(s): I31.9 - Disease of pericardium, unspecified Status: Acute Assessment and Plan: Satisfied the criteria for pericarditis EKG changes and pleuritic chest pain EKG shows diffuse ST elevation Echo pending Reviewed CBC CMP. Troponin< 0.012, ESR pending, CRP 3.1, BNP 1880 Due to history of lupus and CKD will continue dexamethasone from ED and start colchicine Colchicine 1.2 mg b.i.d. x 1 day Colchicine 0.6 mg p.o. q.d. from tomorrow No strenuous activity Monitor blood sugar due to Decadron (2) Vaginal Discharge: Code(s): N89.8 - Other specified noninflammatory disorders of vagina Status: Acute Assessment and Plan: Recurrent vaginitis Managed as outpatient (3) Lupus: Status: Acute Assessment and Plan: Managed as outpatient Continue hydroxychloroquine 200 mg p.o. q.d. (4) CKD (chronic kidney disease): Code(s): N18.9 - Chronic kidney disease, unspecified Status: Acute Assessment and Plan: -Avoid nephrotoxic drugs. -Monitor antihypertensive drug therapy. -Avoid NSAIDs. -Routine CMP monitoring GFR. -Monitor electrolytes especially potassium. -Antibiotic doses depending on creatinine clearance. -Pharmacy does medications. -Cr stable 2.0 appears at baseline -Routine follow-up with Nephrology as an outpatient. Plan Pending transfer to [facility] Code status full code DVT prophylaxis Lovenox 40 subQ Subjective Date/time seen: 12/20/24 09:36 Interval history: Patient still reports chest pain during the night. Due to Decadron will monitor blood sugar and will continue pantoprazole 40 mg p.o. b.i.d. and add sucralfate Review of Systems Review of Systems: Except as documented, all other systems were reviewed and are negative. Exam Narrative: APPEARANCE: Patient appears uncomfortable Head: atraumatic. EYES: EOMI, NOSE: Atraumatic NECK: Trachea midline RESPIRATORY: No increased rate breathing, clear to auscultation, friction rub in the left lower lobe CARDIOVASCULAR: RRR, no peripheral edema ABDOMINAL: Non-distended soft nontender MUSCULOSKELETAl: No obvious deformities NEURO: Alert. Moving 4/4 extremities SKIN:: Hot to touch PSYCHIATRIC: Normal affect Objective Data Vital Signs Vital Signs: Vital Signs - 24 hr 12/19/24 10:00 12/19/24 12:00 12/19/24 12:00 Temperature 98.3 F Pulse Rate 77 73 73 Respiratory Rate 16 Blood Pressure 114/45 L Pulse Oximetry 100 Oxygen Delivery 12/19/24 12:00 12/19/24 14:00 12/19/24 16:00 Temperature 98.3 F Pulse Rate 74 81 Respiratory Rate 18 Blood Pressure 114/48 L Pulse Oximetry 100 Oxygen Delivery Room Air 12/19/24 16:00 12/19/24 16:00 12/19/24 18:00 Temperature Pulse Rate 81 78 Respiratory Rate Blood Pressure Pulse Oximetry Oxygen Delivery Room Air 12/19/24 20:00 12/19/24 20:00 12/19/24 20:00 Temperature 98.2 F Pulse Rate 72 78 Respiratory Rate 17 Blood Pressure 107/50 L Pulse Oximetry 100 Oxygen Delivery Room Air 12/19/24 22:00 12/19/24 22:27 12/20/24 00:00 Temperature 98.7 F Pulse Rate 70 74 73 Respiratory Rate 16 Blood Pressure 106/53 L 100/50 L Pulse Oximetry 98 100 Oxygen Delivery 12/20/24 00:00 12/20/24 00:00 12/20/24 02:00 Temperature Pulse Rate 72 68 Respiratory Rate Blood Pressure Pulse Oximetry Oxygen Delivery Room Air 12/20/24 03:10 12/20/24 03:18 12/20/24 04:00 Temperature 98.4 F Pulse Rate 68 70 Respiratory Rate 15 Blood Pressure 111/58 L Pulse Oximetry 100 Oxygen Delivery Room Air 12/20/24 06:00 12/20/24 08:00 12/20/24 08:10 Temperature 98.0 F Pulse Rate 96 85 Respiratory Rate 16 Blood Pressure 128/65 Pulse Oximetry 97 95 Oxygen Delivery Room Air Intake/Output Intake/Output: Intake & Output 12/17/24 12/18/24 12/19/24 12/20/24 23:59 23:59 23:59 23:59 Intake Total 2990 467 Output Total 750 400 Balance 2240 67 Meds/Results Medications: Active Medications Generic Name Dose Route Start Last Admin Trade Name Freq PRN Reason Stop Dose Admin Acetaminophen 650 mg 12/19/24 07:30 Acetaminophen 325 Mg Tablet PO Q4H PRN Mild Pain (1-3) or Fever Hydrocodone Bitart/Acetaminophen 1 tab 12/19/24 23:23 12/20/24 08:25 Hydrocodone/Acetaminophen (*Crx) 10-325 Mg Tablet PO 1 tab Q4H PRN Administration Pain Rated 4-10 Acyclovir 800 mg 12/20/24 09:00 12/20/24 08:21 Acyclovir 400 Mg Tablet BY MOUTH 800 mg DAILY ALESHA Administration Atorvastatin Calcium 20 mg 12/19/24 09:00 12/20/24 08:23 Atorvastatin 20 Mg Tablet PO 20 mg QAM ALESHA Administration Colchicine 0.6 mg 12/20/24 09:00 12/20/24 08:31 Colchicine 0.6 Mg Tablet PO Not Given QAM ALESHA Dexamethasone Sodium Phosphate 6 mg 12/19/24 09:00 12/20/24 08:23 Dexamethasone Sod Phos Inj 10 Mg/Ml 1 Ml Vial IV PUSH 12/28/24 09:01 6 mg DAILY ALESHA Administration Enoxaparin Sodium 30 mg 12/19/24 09:00 12/20/24 08:20 Enoxaparin 30 Mg/0.3 Ml Syringe SUB-Q 30 mg DAILY ALESHA Administration Furosemide 40 mg 12/19/24 09:00 12/20/24 08:22 Furosemide 40 Mg Tablet PO 40 mg DAILY ALESHA Administration Gabapentin 600 mg 12/19/24 08:20 12/20/24 05:05 Gabapentin 300 Mg Capsule PO 600 mg Q8HR ALESHA Administration Hydromorphone HCl 0.5 mg 12/19/24 07:30 12/19/24 22:29 Hydromorphone Hcl Inj (*Crx) 1 Mg/Ml Syr IV PUSH 0.5 mg Q4H PRN Administration Pain Rated 7-10 Hydroxychloroquine Sulfate 200 mg 12/19/24 09:00 12/20/24 08:22 Hydroxychloroquine Sulfate 200 Mg Tablet PO 200 mg DAILY ALESHA Administration Hydroxyzine Pamoate 25 mg 12/19/24 21:00 12/19/24 20:41 Hydroxyzine Pamoate 25 Mg Capsule PO 25 mg QHS ALESHA Administration Ceftriaxone Sodium 1 gm/ 50 mls @ 100 mls/hr 12/20/24 06:00 12/20/24 05:36 Sodium Chloride IVPB Infused Q24H ALESHA Infusion Doxycycline Hyclate 100 mg/ 100 mls @ 100 mls/hr 12/19/24 21:00 12/20/24 08:20 Sodium Chloride IVPB 12/23/24 21:59 100 mls/hr Q12H ALESHA Administration Linaclotide 145 mcg 12/19/24 08:45 12/20/24 05:06 Linaclotide 145 Mcg Capsule PO 145 mcg DAILY@0630 ALESHA Administration Lisinopril 10 mg 12/19/24 09:00 12/20/24 08:22 Lisinopril 10 Mg Tablet PO 10 mg DAILY ALESHA Administration Oxybutynin Chloride 10 mg 12/20/24 09:00 12/20/24 08:21 Oxybutynin Chloride Xl 5 Mg Tab.Er.24 PO 10 mg DAILY ALESHA Administration Pantoprazole Sodium 40 mg 12/19/24 17:00 12/20/24 08:23 Pantoprazole 40 Mg Tablet PO 40 mg BID ALESHA Administration Perflutren Lipid Microsphere 0 ml 12/19/24 08:12 Perflutren Lipid Microspheres 1.5 Ml Vial Diluted To 10 Ml Total Volume IV PUSH 12/22/24 08:15 ONCE PRN adequate visualization Protocol Radiology Results: ITS Impressions Chest X-Ray 12/19/24 10:39 Impression: Early bilateral pneumonia Chest CTA 12/19/24 15:50 IMPRESSION: Negative for pulmonary embolism. Bilateral probable bronchopneumonia superimposed on chronic lung disease. Follow-up recommended to assess Labs Labs: Laboratory Results - last 24 hr 12/19/24 12/20/24 07:12 04:02 WBC 16.4 H RBC 3.36 L Hgb 9.2 L Hct 28.9 L MCV 86.0 MCH 27.4 MCHC 31.8 L RDW 15.7 H Plt Count 192 MPV 11.0 H Sodium 137 Potassium 4.3 Chloride 105 Carbon Dioxide 28 Anion Gap 4 BUN 31 H Creatinine 1.35 H Estim Creat Clear Calc 32 Estimated GFR 40 L Glucose 123 H Calcium 9.1 Total Bilirubin 0.1 L AST 35 ALT 24 Alkaline Phosphatase 75 Total Protein 5.7 L Albumin 3.1 L Prolactin 11.5 Hospitalist MIPS Advance Care Plan I have confirmed that the patient's Advanced Care Plan is present, code status is documented, or surrogate decision maker is listed in patient medical record.: Yes Medication Reconciliation I have utilized all available resources to obtain, update and review the patients current medications (includes all prescriptions, OTC, herbals, cannabis, and nutritional supplements).: Yes
--- NOTE | 2024-12-20 09:47 | PM.CNCAR ---
Assessment and Plan Assessment and plan (1) Pericarditis: Code(s): I31.9 - Disease of pericardium, unspecified Status: Acute Plan Acute chest pain pleuritic possible pericarditis SLE Moderate Pulm HTN Moderate MR CKD stage III Plan Colchicine 0.6 mg BID Cant start steroids because of SARAH Steroid Taper Consult with rheumatology History of Present Illness History of Present Illness Consult date/time: 12/20/24 09:47 Reason For Visit: endocarditis,chest pain,lupus Narrative: 59 Yrs old male presented with acute chest pain that was started yesterday severe retrosternal diffuse radiates to shoulders, sharp worse with deep breathing. This morning pain is better and intermittent. she has HX of SLE. Review of Systems Review of Systems: All systems reviewed & are unremarkable except as noted in HPI and below PMFSH Past Medical History Medical History Bowel obstruction History of systemic lupus erythematosus (SLE) History of depression History of hypertension Surgical History Surgical History History of appendectomy H/O foot surgery History of tonsillectomy Social History Social History Years smoked: 40 Smoking status: Current every day smoker Tobacco type: cigarettes Alcohol intake: never Alcohol use details: occasional Substance use: never Lack of Transportation: YES Lack of Food: Never True Current Housing: I Have Housing Concerned About Future Housing: No Difficulty Paying Gas/Electric Bills: No Difficulty Paying for Meds: No Currently Unemployed: No Education: Don't Know Difficulty w/ Childcare or Family Care: No Living arrangements: with family Occupation/Education: occupation Gender identity (if verbalized by the patient): Female Spiritual care concerns: No Meds Home Medications and Allergies Home Medications ?Medication ?Instructions ?Recorded ?Confirmed ?Type acyclovir 800 mg tablet 800 mg PO DAILY 02/25/23 12/19/24 History atorvastatin 20 mg tablet 20 mg PO QAM 02/25/23 12/19/24 History furosemide 40 mg tablet 40 mg PO DAILY 02/25/23 12/19/24 History gabapentin 600 mg tablet 600 mg PO Q8H 02/25/23 12/19/24 History hydroxychloroquine 200 mg tablet 200 mg PO DAILY 02/25/23 12/19/24 History hydroxyzine pamoate 25 mg capsule 25 mg PO QHS 02/25/23 12/19/24 History linaclotide 72 mcg capsule 145 mcg PO DAILY 02/25/23 12/19/24 History (Linzess) lisinopril 5 mg tablet 10 mg PO DAILY 02/25/23 12/19/24 History omeprazole 40 mg capsule,delayed 40 mg PO DAILY 02/25/23 12/19/24 History release oxybutynin chloride 10 mg 10 mg PO DAILY 02/25/23 12/19/24 History tablet,extended release 24 hr tramadol 50 mg tablet 50 mg PO PRN 02/25/23 12/19/24 History denosumab 60 mg/mL subcutaneous 60 mg subcut [id number] 12/19/24 12/19/24 History syringe (Prolia) diclofenac sodium 1 % topical gel 2 g topical QID 12/19/24 12/19/24 History (Arthritis Pain (diclofenac)) docusate sodium 100 mg capsule 100 mg PO DAILY PRN constipation 12/19/24 12/19/24 History (Col-Rite) guanfacine 1 mg tablet 1 mg PO HS PRN insomnia 12/19/24 12/19/24 History lidocaine 5 % topical patch 1 patch transdermal Q24H 12/19/24 12/19/24 History prazosin 5 mg capsule 10 mg PO HS PRN insomina 12/19/24 12/19/24 History tizanidine 4 mg capsule 4 mg PO HS 12/19/24 12/19/24 History triamcinolone acetonide 0.1 % 1 applic topical QID 12/19/24 12/19/24 History topical cream varenicline tartrate 1 mg tablet 1 mg PO BID 12/19/24 12/19/24 History Allergies Allergy/AdvReac Type Severity Reaction Status Date / Time No Known Allergies Allergy Verified 12/19/24 02:36 Vital Signs Vital Signs - 24 hr 12/19/24 10:00 12/19/24 12:00 12/19/24 12:00 Temperature 36.8 C Pulse Rate 77 73 73 Respiratory Rate 16 Blood Pressure 114/45 L Pulse Oximetry 100 Oxygen Delivery 12/19/24 12:00 12/19/24 14:00 12/19/24 16:00 Temperature 36.8 C Pulse Rate 74 81 Respiratory Rate 18 Blood Pressure 114/48 L Pulse Oximetry 100 Oxygen Delivery Room Air 12/19/24 16:00 12/19/24 16:00 12/19/24 18:00 Temperature Pulse Rate 81 78 Respiratory Rate Blood Pressure Pulse Oximetry Oxygen Delivery Room Air 12/19/24 20:00 12/19/24 20:00 12/19/24 20:00 Temperature 36.8 C Pulse Rate 72 78 Respiratory Rate 17 Blood Pressure 107/50 L Pulse Oximetry 100 Oxygen Delivery Room Air 12/19/24 22:00 12/19/24 22:27 12/20/24 00:00 Temperature 37.1 C Pulse Rate 70 74 73 Respiratory Rate 16 Blood Pressure 106/53 L 100/50 L Pulse Oximetry 98 100 Oxygen Delivery 12/20/24 00:00 12/20/24 00:00 12/20/24 02:00 Temperature Pulse Rate 72 68 Respiratory Rate Blood Pressure Pulse Oximetry Oxygen Delivery Room Air 12/20/24 03:10 12/20/24 03:18 12/20/24 04:00 Temperature 36.9 C Pulse Rate 68 70 Respiratory Rate 15 Blood Pressure 111/58 L Pulse Oximetry 100 Oxygen Delivery Room Air 12/20/24 06:00 12/20/24 08:00 12/20/24 08:10 Temperature 36.7 C Pulse Rate 96 85 Respiratory Rate 16 Blood Pressure 128/65 Pulse Oximetry 97 95 Oxygen Delivery Room Air Exam Const: General: comfortable and no acute distress Other: Able to lie flat HENMT: Face/Nose/Sinus: Normal nares present and no epistaxis Mouth: Yes moist mucous membranes Eyes: Sclera: sclerae normal Pupils: Equal, round and reactive pupils present Neck: Neck: supple and no JVD Carotids: no bruits Resp: Auscultation: clear to auscultation bilaterally and lung sounds not diminished Other: No chest wall tenderness Cardio: Rate: regular rate Rhythm: regular rhythm Heart sounds: no gallops, no murmurs and no rubs GI: GI Palp: Yes Soft to palpation and No Tenderness to palpation present (GI) Auscultation: normal bowel sounds Skin: General skin exam: normal color, rashes and/or lesions noted and no erythema Other: Warm Neuro: Cranial nerves: Yes Equal, round and reactive pupils present Speech: normal speech Other: No obvious focal deficit or facial asymmetry Extrem: General: no edema Other: Normal capillary refills Intact distal pulses. Results Labs and Meds 12/20/24 04:02 12/20/24 04:02 Lab results: Cardiac Enzymes 12/20/24 Range/Units 04:02 AST 35 (14-36) U/L CBC 12/20/24 Range/Units 04:02 WBC 16.4 H (4.5-10.0) K/mm3 RBC 3.36 L (4.2-5.4) M/mm3 Hgb 9.2 L (12.0-15.0) g/dL Hct 28.9 L (37.0-47.0) % Plt Count 192 (150-375) k/mm3 Comprehensive Metabolic Panel 12/20/24 Range/Units 04:02 Sodium 137 (137-145) mmol/L Potassium 4.3 (3.4-5.0) mmol/L Chloride 105 (98-107) mmol/L Carbon Dioxide 28 (22-30) mmol/L BUN 31 H (7-17) mg/dL Creatinine 1.35 H (0.7-1.0) mg/dL Glucose 123 H (65-110) mg/dL Calcium 9.1 (8.4-10.2) mg/dL AST 35 (14-36) U/L ALT 24 (6-35) U/L Alkaline Phosphatase 75 (38-126) U/L Total Protein 5.7 L (6.3-8.2) g/dL Albumin 3.1 L (3.5-5.1) g/dL Intake and Output 12/19/24 12/20/24 12/20/24 23:59 07:59 15:59 Intake Total 940 350 117 Output Total 750 400 Balance 190 -50 117 Intake: IV 100 50 Doxycycline IV 100 mg In Sodium 100 Chloride 0.9% IV 100 ml @ 100 mls/hr IVPB Q12H ALESHA Rx#: [id number] cefTRIAXone 1 gm In Sodium 50 Chloride 0.9% IV 50 ml @ 100 mls/hr IVPB Q24H ALESHA Rx#: [id number] Oral 600 300 117 Oral Supplement 240 Output: Urine 750 400 Other: # Unmeasured Voids 2 Patient Weight 12/20/24 23:59 Weight 51.8 kg
[2024-12-20 12:36] LABS: Hemoglobin A1C 5.5 % (<5.7)
[2024-12-20] MEDS: SUCRALFATE 1 GM TABLET PO ×2 (16:51→21:08)
--- NOTE | 2024-12-20 19:56 | PC.NURSE ---
Phone call received from Bert Goldstein requesting information on this patient. This person is not listed as a contact in the patient's chart. RN let caller know that I am unable to give out patient information. This RN spoke with patient to notify patient of the call received. Patient requested RN does not give information to this caller. Patient also specifically asked that no information be given to Abbi Goldstein.
[2024-12-21] VITALS (9 sets, daily range): BP systolic 140–157; BP diastolic 70–84; PULSE 62–88; RESP 16; TEMP 36.6–36.7; O2SAT 98–100
[2024-12-21 03:45] LABS: Hematocrit 30.1 % (37.0-47.0); Hemoglobin 9.4 g/dL (12.0-15.0); Mean Corpuscular HGB Conc 31.2 g/dl (32-36); Mean Corpuscular Hemoglobin 26.8 pg (26-34); Mean Corpuscular Volume 85.8 fl (80-100); Platelet Count Result 218 k/mm3 (150-375); Red Blood Count 3.51 M/mm3 (4.2-5.4); White Blood Count 14.3 K/mm3 (4.5-10.0)
[2024-12-21] MEDS: HYDROcodone/acetaminophen (*CRX) 10-325 MG TABLET 1 TAB PO ×3 (03:47→13:34)
[2024-12-21 04:05] LABS: Alanine Aminotransferase 23 U/L (6-35); Albumin Level 3.2 g/dL (3.5-5.1); Alkaline Phosphatase 77 U/L (38-126); Anion Gap 4 mmol/L (4-12); Aspartate Amino Transferase 28 U/L (14-36); Bilirubin,Total 0.2 mg/dL (0.2-1.3); Blood Urea Nitrogen 35 mg/dL (7-17); Calcium 9.0 mg/dL (8.4-10.2); Carbon Dioxide 26 mmol/L (22-30); Chloride 108 mmol/L (98-107); Estimated CRCL calculation 31 ml/min; Estimated Glomerular Filt Rate 38; Glucose 118 mg/dL (65-110); Potassium 4.2 mmol/L (3.4-5.0); Sodium 138 mmol/L (137-145); Total Protein 6.1 g/dL (6.3-8.2)
[2024-12-21] MEDS: SUCRALFATE 1 GM TABLET PO ×2 (06:33→11:33)
[2024-12-21] MEDS: GABAPENTIN 300 MG CAPSULE 600 MG PO ×2 (06:33→13:34)
[2024-12-21] MEDS: LINACLOTIDE 145 MCG CAPSULE PO (06:33)
[2024-12-21] MEDS: cefTRIAXone 1 GM in SODIUM CHLORIDE 0.9% IV 50 ML 100 ML IVPB (06:34)
[2024-12-21] MEDS: DOXYCYCLINE IV 100 MG in SODIUM CHLORIDE 0.9% IV 100 ML IVPB (08:13)
[2024-12-21] MEDS: ENOXAPARIN 30 MG/0.3 ML SYRINGE SUB-Q (08:13)
[2024-12-21] MEDS: FUROSEMIDE 40 MG TABLET PO (08:14)
[2024-12-21] MEDS: ATORVASTATIN 20 MG TABLET PO (08:14)
[2024-12-21] MEDS: oxyBUTYnin CHLORIDE XL 5 MG TAB.ER.24 10 MG PO (08:14)
[2024-12-21] MEDS: ACYCLOVIR 400 MG TABLET 800 MG BY MOUTH (08:14)
[2024-12-21] MEDS: PANTOPRAZOLE 40 MG TABLET PO (08:14)
[2024-12-21] MEDS: HYDROXYCHLOROQUINE SULFATE 200 MG TABLET PO (08:14)
[2024-12-21 08:28] LABS: CRP 6.2 mg/dL (<1.0)
--- NOTE | 2024-12-21 09:50 | PM.PNCARD ---
Progress Note: A&P Assessment and Plan (1) Pericarditis: Code(s): I31.9 - Disease of pericardium, unspecified Status: Acute Plan Acute chest pain pleuritic possible pericarditis SLE Moderate Pulm HTN Moderate MR CKD stage III Plan Colchicine 0.6 mg BID for 3 months Cant start NSAIDS because of SARAH Steroid Taper prednisone 20 mg daily for 1 week then 10 mg daily for 1 week then 10 mg daily every other day Consult with rheumatology Subjective Date/time seen: 12/21/24 09:50 Interval history: The patient is having follow-up for possible pericarditis No acute events overnight chest pain is improving Telemetry sinus rhythm Review of Systems Review of Systems: All systems reviewed & are unremarkable except as noted in HPI and below Exam Const: General: comfortable and no acute distress Other: Able to lie flat HENMT: Face/Nose/Sinus: Normal nares present and no epistaxis Mouth: Yes moist mucous membranes Eyes: Sclera: sclerae normal Pupils: Equal, round and reactive pupils present Neck: Neck: supple and no JVD Carotids: no bruits Resp: Auscultation: clear to auscultation bilaterally and lung sounds not diminished Other: No chest wall tenderness Cardio: Rate: regular rate Rhythm: regular rhythm Heart sounds: no gallops, no murmurs and no rubs GI: GI Palp: Yes Soft to palpation and No Tenderness to palpation present (GI) Auscultation: normal bowel sounds Skin: General skin exam: normal color, rashes and/or lesions noted and no erythema Other: Warm Neuro: Cranial nerves: Yes Equal, round and reactive pupils present Speech: normal speech Other: No obvious focal deficit or facial asymmetry Extrem: General: no edema Other: Normal capillary refills Intact distal pulses. Objective Data Vital Signs Vital Signs: Vital Signs - 24 hr 12/20/24 10:00 12/20/24 12:00 12/20/24 12:00 Temperature 36.3 C L Pulse Rate 66 73 81 Respiratory Rate 16 Blood Pressure 123/58 L Pulse Oximetry 97 Oxygen Delivery 12/20/24 14:00 12/20/24 16:00 12/20/24 16:00 Temperature 37.1 C Pulse Rate 79 73 83 Respiratory Rate 20 Blood Pressure 114/63 Pulse Oximetry 100 Oxygen Delivery 12/20/24 18:00 12/20/24 20:00 12/20/24 20:00 Temperature 37.0 C Pulse Rate 81 72 Respiratory Rate 16 Blood Pressure 108/52 L Pulse Oximetry 100 100 Oxygen Delivery Room Air 12/20/24 20:00 12/20/24 21:52 12/20/24 23:48 Temperature 36.7 C Pulse Rate 87 75 72 Respiratory Rate 15 Blood Pressure 114/60 Pulse Oximetry 100 Oxygen Delivery 12/21/24 00:00 12/21/24 00:00 12/21/24 02:00 Temperature Pulse Rate 73 75 Respiratory Rate Blood Pressure Pulse Oximetry 100 Oxygen Delivery Room Air 12/21/24 03:46 12/21/24 04:00 12/21/24 04:00 Temperature 36.6 C Pulse Rate 69 80 Respiratory Rate 16 Blood Pressure 140/70 Pulse Oximetry 98 98 Oxygen Delivery Room Air 12/21/24 05:59 12/21/24 08:00 Temperature 36.6 C Pulse Rate 62 69 Respiratory Rate 16 Blood Pressure 149/71 H Pulse Oximetry 100 Oxygen Delivery Intake/Output Intake/Output: Intake & Output 12/18/24 12/19/24 12/20/24 12/21/24 23:59 23:59 23:59 23:59 Intake Total 2990 1707 720 Output Total 750 700 Balance 2240 1007 720 Meds/Results Medications: Active Medications Generic Name Dose Route Start Last Admin Trade Name Freq PRN Reason Stop Dose Admin Acetaminophen 650 mg 12/19/24 07:30 Acetaminophen 325 Mg Tablet PO Q4H PRN Mild Pain (1-3) or Fever Hydrocodone Bitart/Acetaminophen 1 tab 12/19/24 23:23 12/21/24 08:15 Hydrocodone/Acetaminophen (*Crx) 10-325 Mg Tablet PO 1 tab Q4H PRN Administration Pain Rated 4-10 Acyclovir 800 mg 12/20/24 09:00 12/21/24 08:14 Acyclovir 400 Mg Tablet BY MOUTH 800 mg DAILY ALESHA Administration Atorvastatin Calcium 20 mg 12/19/24 09:00 12/21/24 08:14 Atorvastatin 20 Mg Tablet PO 20 mg QAM ALESHA Administration Colchicine 0.6 mg 12/20/24 09:00 12/21/24 08:15 Colchicine 0.6 Mg Tablet PO Not Given QAM ALESHA Dextrose 12.5 gm 12/20/24 12:07 Dextrose 50% 25 Gm/50 Ml Syringe IV PUSH PRN PRN Hypoglycemia Protocol Enoxaparin Sodium 30 mg 12/19/24 09:00 12/21/24 08:13 Enoxaparin 30 Mg/0.3 Ml Syringe SUB-Q 30 mg DAILY ALESHA Administration Furosemide 40 mg 12/19/24 09:00 12/21/24 08:14 Furosemide 40 Mg Tablet PO 40 mg DAILY ALESHA Administration Gabapentin 600 mg 12/19/24 08:20 12/21/24 06:33 Gabapentin 300 Mg Capsule PO 600 mg Q8HR ALESHA Administration Glucagon 1 mg 12/20/24 12:07 Glucagon For Inj 1 Mg Vial IM PRN PRN Hypoglycemia Protocol Glucose 15 gm 12/20/24 12:07 Glucose Oral Gel 15 Gm Of Glucse In 37.5 Gm Tube PO PRN PRN Hypoglycemia Protocol Hydromorphone HCl 0.5 mg 12/19/24 07:30 12/19/24 22:29 Hydromorphone Hcl Inj (*Crx) 1 Mg/Ml Syr IV PUSH 0.5 mg Q4H PRN Administration Pain Rated 7-10 Hydroxychloroquine Sulfate 200 mg 12/19/24 09:00 12/21/24 08:14 Hydroxychloroquine Sulfate 200 Mg Tablet PO 200 mg DAILY ALESHA Administration Hydroxyzine Pamoate 25 mg 12/19/24 21:00 12/20/24 21:08 Hydroxyzine Pamoate 25 Mg Capsule PO 25 mg QHS ALESHA Administration Ceftriaxone Sodium 1 gm/ 50 mls @ 100 mls/hr 12/20/24 06:00 12/21/24 06:34 Sodium Chloride IVPB 100 mls/hr Q24H ALESHA Administration Doxycycline Hyclate 100 mg/ 100 mls @ 100 mls/hr 12/19/24 21:00 12/21/24 08:13 Sodium Chloride IVPB 12/23/24 21:59 100 mls/hr Q12H ALESHA Administration Dextrose 1,000 mls @ 100 mls/hr 12/20/24 12:07 Dextrose 5% 1,000 Ml IVPB PRN PRN Hypoglycemia Protocol Insulin Aspart 2 - 5 units 12/20/24 12:00 12/21/24 09:25 Insulin Aspart (*Bkc) 100 Units/Ml SUB-Q Not Given TIDWM ALESHA Protocol Insulin Aspart 1 - 2 units 12/20/24 21:00 12/20/24 22:00 Insulin Aspart (*Bkc) 100 Units/Ml SUB-Q Not Given HS ALESHA Protocol Linaclotide 145 mcg 12/19/24 08:45 12/21/24 06:33 Linaclotide 145 Mcg Capsule PO 145 mcg DAILY@0630 ALESHA Administration Lisinopril 10 mg 12/19/24 09:00 12/21/24 08:14 Lisinopril 10 Mg Tablet PO 10 mg DAILY ALESHA Administration Oxybutynin Chloride 10 mg 12/20/24 09:00 12/21/24 08:14 Oxybutynin Chloride Xl 5 Mg Tab.Er.24 PO 10 mg DAILY ALESHA Administration Pantoprazole Sodium 40 mg 12/19/24 17:00 12/21/24 08:14 Pantoprazole 40 Mg Tablet PO 40 mg BID ALESHA Administration Perflutren Lipid Microsphere 0 ml 12/19/24 08:12 Perflutren Lipid Microspheres 1.5 Ml Vial Diluted To 10 Ml Total Volume IV PUSH 12/22/24 08:15 ONCE PRN adequate visualization Protocol Prednisone 20 mg 12/21/24 08:00 12/21/24 08:14 Prednisone 20 Mg Tablet PO 20 mg DAILY@0800 ALESHA Administration Sucralfate 1 gm 12/20/24 16:30 12/21/24 06:33 Sucralfate 1 Gm Tablet PO 1 gm ACHS ALESHA Administration Radiology Results: ITS Impressions Chest X-Ray 12/19/24 10:39 Impression: Early bilateral pneumonia Chest CTA 12/19/24 15:50 IMPRESSION: Negative for pulmonary embolism. Bilateral probable bronchopneumonia superimposed on chronic lung disease. Follow-up recommended to assess Labs Labs: Laboratory Results - last 24 hr 12/20/24 12/20/24 12/20/24 03:58 14:36 16:43 WBC RBC Hgb Hct MCV MCH MCHC RDW Plt Count MPV Sodium Potassium Chloride Carbon Dioxide Anion Gap BUN Creatinine Estim Creat Clear Calc Estimated GFR Glucose POC Capillary Glucose 164 H 144 H Hemoglobin A1c 5.5 Calcium Total Bilirubin AST ALT Alkaline Phosphatase C-Reactive Protein Total Protein Albumin 12/20/24 12/21/24 12/21/24 22:00 03:32 08:21 WBC 14.3 H RBC 3.51 L Hgb 9.4 L Hct 30.1 L MCV 85.8 MCH 26.8 MCHC 31.2 L RDW 15.8 H Plt Count 218 MPV 11.1 H Sodium 138 Potassium 4.2 Chloride 108 H Carbon Dioxide 26 Anion Gap 4 BUN 35 H Creatinine 1.40 H Estim Creat Clear Calc 31 Estimated GFR 38 L Glucose 118 H POC Capillary Glucose 105 56 L* Hemoglobin A1c Calcium 9.0 Total Bilirubin 0.2 AST 28 ALT 23 Alkaline Phosphatase 77 C-Reactive Protein 6.2 H Total Protein 6.1 L Albumin 3.2 L 12/21/24 08:54 WBC RBC Hgb Hct MCV MCH MCHC RDW Plt Count MPV Sodium Potassium Chloride Carbon Dioxide Anion Gap BUN Creatinine Estim Creat Clear Calc Estimated GFR Glucose POC Capillary Glucose 71 Hemoglobin A1c Calcium Total Bilirubin AST ALT Alkaline Phosphatase C-Reactive Protein Total Protein Albumin
[2024-12-21] MEDS: DOXYCYCLINE HYCLATE 100 MG TABLET PO (11:36)
--- NOTE | 2024-12-21 14:37 | PM.DS ---
DS: Admitting Diagnosis Discharge Date 12/21/2024 Admitting Diagnosis Chest pain suspected for acute pericarditis DS: Discharge Diagnosis Discharge Diagnosis (1) CKD (chronic kidney disease): Code(s): N18.9 - Chronic kidney disease, unspecified Status: Acute (2) PNA (pneumonia): Code(s): J18.9 - Pneumonia, unspecified organism Status: Acute (3) Lupus: Status: Acute (4) Acute pericarditis: Code(s): I30.9 - Acute pericarditis, unspecified Status: Acute Plan Acute pericarditis Continue on aspirin 650 mg t.i.d. for 2 weeks Colchicine 0.6 mg q.day 3-6 month DS: Summary Hospital Course Reason for hospitalization: Chest pain Hospital Course: Jessica Carpio is a 59 year old female with pmhx of SLE on hydroxychloroquine, hypertension and IBS who is here for chest pain. Pain was started at 3:00 a.m. on 12/19/2024. The pain was sharp and across her chest ready to her back. The sharp pain was exacerbated with deep breath, and leaning forward. It is not associated with exertion, diaphoresis or vomiting. She denies fever, productive cough, and myalgia. Denies sick contact or travel outside the [place] she denies history of acute pericarditis in the past or history of lupus pleurisy. EKG shows ST segment elevation in diffuse leads concern for acute pericarditis in the setting of her clinical symptoms. Transthoracic cardiogram shows no pericardial effusion, EF 60-65 without wall motion abnormality. Noted grade 2 diastolic dysfunction. Cardiology was consulted, initially she was placed on prednisone and colchicine due to concern for worsening of acute kidney injury. Had acute kidney injury was improved, prednisone was discontinued, high-dose aspirin (aspirin 65 mg t.i.d. for 2 weeks) was started, resumed a colchicine 0.6 mg q.a.m. for 3-6 month. Patient did have any lupus flare. She was hemodynamically stable and afebrile. Had leukocytosis but shows on steroid. Patient was excited to go home and discharged in stable condition. She made an appointment to see her rheumatology next Saturday. 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 Of note, CTA chest was obtained which showed bilateral probable bronchopneumonia superimposed on chronic lung disease. Patient reported that she had necrotizing pneumonia in the past. She denies productive cough, fever, chest pain, and chills. Because she presented with chest pain, there could be a probable superimposed pneumonia will infection. We treated her pneumonia with empiric antibiotics. She was discharged with Augmentin and doxycycline for 4 days. Status at Discharge Functional status at discharge: independent ambulation Time Spent with Patient Time attestation: 35 minutes Total time spent providing and/or coordinating discharge services: Exam Narrative: APPEARANCE: Well-developed, pleasant, no acute distress EYES: EOMI HEENT: Normocephalic, atraumatic, OMM RESPIRATORY: No respiratory distress Clear to auscultation bilaterally with no rhonchi wheezing or rales. CARDIOVASCULAR: RRR, S1 and S2 without murmurs rubs or gallops. ABDOMINAL: Soft, nontender, nondistended, no rebound or guarding MSK: 5/5 motor strength in all 4 extremities. No joint pain or swelling. NEURO: Awake and alert. Following commands, speech normal, no focal deficits SKIN:: Warm, dry. No rashes lesions or abrasions-no rash PSYCHIATRIC: Bright affect DS: Data Data Completed and Pending Labs on day of discharge: Labs from last 24 hours 12/21/24 12/21/24 12/21/24 08:54 08:21 03:32 WBC 14.3 H RBC 3.51 L Hgb 9.4 L Hct 30.1 L MCV 85.8 MCH 26.8 MCHC 31.2 L RDW 15.8 H Plt Count 218 MPV 11.1 H Sodium 138 Potassium 4.2 Chloride 108 H Carbon Dioxide 26 Anion Gap 4 BUN 35 H Creatinine 1.40 H Estim Creat Clear Calc 31 Estimated GFR 38 L Glucose 118 H POC Capillary Glucose 71 56 L* Calcium 9.0 Total Bilirubin 0.2 AST 28 ALT 23 Alkaline Phosphatase 77 C-Reactive Protein 6.2 H Total Protein 6.1 L Albumin 3.2 L 12/20/24 12/20/24 12/20/24 22:00 16:43 14:36 WBC RBC Hgb Hct MCV MCH MCHC RDW Plt Count MPV Sodium Potassium Chloride Carbon Dioxide Anion Gap BUN Creatinine Estim Creat Clear Calc Estimated GFR Glucose POC Capillary Glucose 105 144 H 164 H Calcium Total Bilirubin AST ALT Alkaline Phosphatase C-Reactive Protein Total Protein Albumin Discharge Plan Discharge Attending physician on discharge: Kal Tran Consulting providers: Carlton Worley Discharging Clinician: Maude Elliott Anticipated Discharge Date/Time: 12/21/24 14:28 Patient Disposition: Home Activity: unlimited Diet: regular Discharge Instructions: you came in with acute kidney function Now you are taking aspirin 650 mg three times a day for about 2 weeks-your cardiology or rheumatology can stop based on how you feel You will take cholchicine 0.6 mg q.a.m. High-dose aspirin will cause acute kidney injury or will worsen the acute E kidney injury Please get the blood work in 1 week Call your primary care physician to put the order for you Patient Instructions: Antibiotic Form, Cigarette Smoking and Your Health (GEN) Patient Language: Czech Stand Alone Forms: General Discharge Information Follow-up/Referrals: Hoang,Italo Seay MD [Primary Care Provider] - 2 Weeks Referral Note: Follow-up with his BMP Shows admitted with SARAH, now she is taking high-dose aspirin for acute pericarditis-asses her pain and make appropriate change with the aspirin dose. She will take colchicine 0.6 mg dailyfor about sorry to his 6 month Discharge Medications: New pantoprazole 40 mg Tablet,Delayed Release (Dr/Ec) 40 mg PO BID Qty: 28 0RF colchicine [Colcrys] 0.6 mg Tablet 0.6 mg PO QAM Qty: 90 0RF doxycycline hyclate 100 mg Tablet 100 mg PO Q12HR Qty: 4 0RF aspirin 325 mg Tablet 650 mg PO Q8HR Qty: 2 0RF Continued furosemide 40 mg tablet 40 mg PO DAILY gabapentin 600 mg tablet 600 mg PO Q8H oxybutynin chloride 10 mg tablet extended release 24hr 10 mg PO DAILY acyclovir 800 mg tablet 800 mg PO DAILY atorvastatin 20 mg tablet 20 mg PO QAM hydroxyzine pamoate 25 mg capsule 25 mg PO QHS lisinopril 5 mg tablet 10 mg PO DAILY Linzess 72 mcg capsule 145 mcg PO DAILY tramadol 50 mg tablet 50 mg PO PRN hydroxychloroquine 200 mg tablet 200 mg PO DAILY varenicline tartrate 1 mg tablet 1 mg PO BID Prolia 60 mg/mL syringe 60 mg subcut [id number] lidocaine 5 % adhesive patch,medicated 1 patch transdermal Q24H guanfacine 1 mg tablet 1 mg PO HS PRN (Reason: insomnia) docusate sodium [Col-Rite] 100 mg capsule 100 mg PO DAILY PRN (Reason: constipation) prazosin 5 mg capsule 10 mg PO HS PRN (Reason: insomina) diclofenac sodium [Arthritis Pain (diclofenac)] 1 % gel 2 g topical QID Rx Instructions: apply to single elbow, wrist or hand; for hand includes palm/fingers/back of hand triamcinolone acetonide 0.1 % cream 1 applic TOPICAL QID tizanidine 4 mg capsule 4 mg PO HS Discontinued omeprazole 40 mg capsule,delayed release(DR/EC) 40 mg PO DAILY Date of admission: 12/20/24 14:34 Primary Care Provider: HoangItalo Admitting Provider: Kal Tran Attending physician on admission: Kal Tran Condition: Stable
[2024-12-21] MEDS: ASPIRIN 325 MG TABLET 650 MG PO (14:57)
== END 2024-12-21 15:33 | disposition home or self-care (01) | DRG 207 ==
LOC: ANHED 07:08 → ANHIMU 08:51
PROVIDERS: Emergency Medicine; Admitting Provider General Practice; Emergency Provider Emergency Medicine; PCP Family Medicine; Visit Provider Student in an Organized Health Care Education/Training Program
DX: I30.9 Acute pericarditis, unspecified (principal); N17.9 Acute kidney failure, unspecified; J18.9 Pneumonia, unspecified organism; M32.9 Systemic lupus erythematosus, unspecified; F32.A Depression, unspecified; F17.210 Nicotine dependence, cigarettes, uncomplicated; N89.8 Other specified noninflammatory disorders of vagina; I12.9 Hypertensive chronic kidney disease with stage 1 through stage 4 chronic kidney disease, or unspecified chronic kidney disease; I27.20 Pulmonary hypertension, unspecified; I34.0 Nonrheumatic mitral (valve) insufficiency; N18.30 Chronic kidney disease, stage 3 unspecified; K58.9 Irritable bowel syndrome, unspecified; Z79.899 Other long term (current) drug therapy; Z90.49 Acquired absence of other specified parts of digestive tract; J98.4 Other disorders of lung
CPT/HCPCS: 36415; 71046; 71275; 80053; 82948; 83036; 83690; 83880; 84146; 84484; 85025; 85027; 85610; 85652; 85730; 86140; 86160; 86225; 87040; 87637; 93005; 93306; 96365; 96367; 96372; 96375; 96376; 99285; A9270; G0378; G0379; J0696; J1100; J1171; J1650; J7120; J7512; Q9967

== ENCOUNTER 2024-12-29 14:59 | Outpatient (CLI) | payer OTHER, SELFPAY ==
--- OUTSIDE RECORDS SUMMARY | 2019-04-05 12:23 | XMS_ITS | Continuity of Care Document ---
Author Organization [facility] Address [address] [place] [address] Phone Care Team Providers Care Bridge Engineer Name Role Phone Narciso Art MD Unavailable Unavailable Allergies, Adverse Reactions, Alerts Substance Reaction Status Criticality No Known Allergies Active No Inform ation Medications Medication Instructions Dosage Effective Dates (start - stop) Status Comments [place] 5 mg-325 mg tablet take 1 tablet by oral route every 6 hours as needed for pain as needed - Active PRN for pain, avoid driving or operate machines Lasix 20 mg tablet take 1 tablet by oral route every day 20 MG - Active Tenoretic 100 100 mg-25 mg tablet take 1 tablet by oral route every day 1.00 tablet - Active gabapentin 600 mg tablet take 1 tablet by oral route 3 times every day 600 MG - Active avoid driving or operate machines potassium chloride ER 20 mEq tablet,extended release take 1 tablet by oral route every day with food 20 MEQ - Active acyclovir 800 mg tablet take 1 tablet by oral route every day - Active Lipitor 20 mg tablet take 1 Tablet by oral route every day 20 MG - Active Wellbutrin SR 150 mg tablet, 12 hr sustained-release take 1 tablet by oral route 2 times every day 150 MG - Active Remeron 30 mg tablet take 1 tablet by oral route every day before bedtime 30 MG - Active Zoloft 100 mg tablet take 1 tablet by oral route every day 100 MG - Active Ambien 10 mg tablet take 1 tablet by oral route every day at bedtime 10 MG - Active prazosin 2 mg capsule take 1 capsule by oral route 2 times every day 2 MG - Active Procedures Procedure Date OFFICE/OUTPATIENT VISIT, EST OFFICE/OUTPATIENT VISIT, EST OFFICE/OUTPATIENT VISIT, EST OFFICE/OUTPATIENT VISIT, EST OFFICE/OUTPATIENT VISIT, EST PREV VISIT, NEW, AGE 40-64 OFFICE/OUTPATIENT VISIT, NEW Advance Directives Directive Yes / No Effective Date File Name No Information Encounters Encounter Description Practice Location Reason(s) For Visit Diagnoses Date Provider Providers Copied on Encounter [facility], [address], [place], [place], [id number], tel:[phone] [facility] No Information 9 Rubens Stuart. [address], [place], [place], [address] , [place]. tel:[phone] Referring Provider: Vladimir Graves [facility] [place], [id number]. tel:[phone] OFFICE/OUTPA TIENT VISIT, [facility], [address], [place], [place], [id number], [place] tel:[phone] [facility] mammo (chief complaint) lupus1 (chief complaint) joint pain1 (chief complaint) renal (chief complaint) Stage 3 chronic renal diseaseInconclusive mammogramEssential (primary) hypertensionChronic pain syndromeEncephalopa thy, unspecifiedTobacco use 9 Rubens Stuart. [address], [place], [place], [address] , [place]. tel:[phone] Referring Provider: Vladimir Graves [address], [place], [place], [id number]. tel:[phone] OFFICE/OUTPA TIENT VISIT, [facility], [address] [place], [address], [place] tel:[phone] [facility] genital herpes1 (chief complaint) renal disease (chief complaint) HTN (chief complaint) edema1 (chief complaint) chronic pain1 (chief complaint) Herpes simplex infection NOSStage 3 chronic renal diseaseEssential (primary) hypertensionEdemaCh ronic pain syndromeEncounter for oth screening for malignant neoplasm of breast 9 Rubens Kwan [address], [address], [place], [place], [address] , [place]. tel:[phone] Referring Provider: Vladimir Graves [facility], [place], [place], [id number]. tel:[phone] OFFICE/OUTPA TIENT VISIT, [facility], [address] [place], [id number], [place] tel:[phone] [facility] chronic pain1 (chief complaint) renal disease1 (chief complaint) HTN (chief complaint) edema1 (chief complaint) Pain in unspecified jointStage 3 chronic renal diseaseEssential (primary) hypertensionEdema 9 Rubens Kwan [address], [address], [place], [place], [address] , [place]. tel:[phone] Referring Provider: Vladimir Graves [facility] [address], [place], [place], [address]. tel:[phone] OFFICE/OUTPA TIENT VISIT, [facility], [address] [place], [address], [place] tel:[phone] [facility] chronic pain1 (chief complaint) HLP (chief complaint) renal disease1 (chief complaint) insomnia1 (chief complaint) HyperlipidemiaStage 3 chronic renal diseaseInsomniaLupu s erythematosus NOSTobacco useEncounter for screening for osteoporosis 9 Rubens Kwan [address], [address], [place], [place], [address] , [place]. tel:[phone] OFFICE/OUTPA TIENT VISIT, [facility], [address] [place], [address], [place] tel:[phone] [facility] renal1 (chief complaint) HLP (chief complaint) HLP (chief complaint) bunion1 (chief complaint) Lupus (chief complaint) HyperlipidemiaStage 3 chronic renal diseaseLupus erythematosus NOSVitamin D deficiency, unspecifiedBunion 9 Rubens Stuart. [address], [place], [place], [address] , [place]. tel:[phone] Referring Provider: Vladimir Graves [address], [place], [place], [address]. tel:[phone] PREV VISIT, NEW, AGE 40-64 [facility], [address], [place], [place], [address], [place] tel:[phone] [facility] Physical (chief complaint) Encounter for general adult medical exam w abnormal findingsLupus erythematosus NOSEssential (primary) hypertensionHyperli pidemia 9 Rubens Stuart. [address], [place], [place], [address] , [place]. tel:[phone] Referring Provider: Vladimir Graves [address], [place], [place], [address]. tel:[phone] Family History Family Member Type Diagnosis Age At Onset No Information Payers Payer name Insurance type Covered constitution party ID Authoriza tion(s) No Information Social History Type Description Quantity Date Captured Comments Alcohol Use Details Unknown Caffeine Use Details Unknown Tobacco Use Status Smoking Status No Information Sex Female Chief Complaint And Reason For Visit No Information Plan Of Treatment Date Type Action Status Goal Special diet education compl eted Goal Special diet education compl eted Goal Tobacco cessation counseling completed Goal Tobacco cessation counseling completed Goal Special diet education compl eted Goal Special diet education compl eted Goal Special diet education compl eted Goal Tobacco cessation counseling completed Goal Tobacco cessation counseling completed Goal Special diet education compl eted Referral Ordered: LUMBAR XRAY AP AND LAT ONLY ordered Referral Ordered: MAMMOGRAM, SCREENING ordered Referral Ordered: DXA BONE DENSITY, AXIAL ordered Referral Ordered: Sergio Landers -Allopathic & Osteopathic Physicians : Internal Medicine : Nephrology (related to Stage 3 chronic renal disease) ordered Referral Referred To: Sergio Landers [id number] [place], [place], [phone] Ordered: Referrals: Allopathic & Osteopathic Physicians : Internal Medicine : Nephrology. Sergio Landers ordered Referral Ordered: ALYSSA MOORE -Podiatric Medicine & Surgery Service Providers : Dock Builder (related to Encounter for general adult medical exam w abnormal findings) ordered Referral Ordered: Rheumatology (related to Lupus erythematosus NOS) ordered Referral Referred To: ALYSSA MOORE [address] [place], [place], [phone] Ordered: Referrals: Podiatric Medicine & Surgery Service Providers : Dock Builder. ALYSSA MOORE. Evaluate and treat ordered Referral Ordered: Referrals: Rheumatology. Evaluate and treat ordered Referral Ordered: COLONOSCOPY AND BIOPSY ordered History Of Present Illness Encounter Date Complaint History Of Prese nt Illness mammo Pt has abnormal mammogram. Need comparison study, Pt denies any breast pain or nodule or discoloration or discharge lupus1 Pt just seen rhe atology and she is getting work up done. Pt states that she has lupus but I could not obtain any records of that joint pain1 Pt has diffuse j oint pain Pt has osteonecrosis of knee. Pt has osteoarthritis of hand and DDD of back. renal Pt has chronic r enal disease and she was recently admitted to hospital for ARF due to ? unintentional overdose due to pain. Pt was diagnosed with encephalopathy. Pt renal function did recover with IV fluid. Pt had MRI of brain done which was benign and cardiac echo showed left atrial chamber enlargement Pt denies any chest pain or sob Pt is at her baseline now. genital herpes1 Pt has chronic g enital herpes. Pt takes acyclovir 800 daily for prevention. PT denies any outbreak while on acyclovir. renal disease Pt has renal dis ease Pt has normal UO. Pt has appointment with nephrology soon HTN Pt takes tenoret ic. Her BP is borderline high Pt denies any chest pain or headache edema1 Pt has LE edema. Pt is doing ok with lasix and KCL. Pt denies any edema. Pt denies any sob chronic pain1 Pt has back and knee and multiple joint pain Pt states that she has lupus but I don't have any proof of that. Pt takes norco PRN for pain, Pt failed NSIAD and ultram. Pt denies any sciatica or any loss of bladder control chronic pain1 Pt has chronic d iffuse joint pain Pt states that she has lupus and she has sheron with rheumatology at [facility] in December. Pt denies any joint swelling Pt c/o bilateral knee, finger and low back pain and upper shoulder etc. Pt failed NSAID and ultram. pt states that she has not seen rheumatology for over one year due to insurance issue renal disease1 pt has stage iii renal disease Pt still does not have any sheron with nephrology. Pt has normal UO HTN Pt takes atenolo l/chlorthalidone. Her BP is borderline today. pt told me she did not have chance to take her med this morning Pt denies any chest pain or headache edema1 Pt states that s he has leg and face and hand swelling without lasix. Pt takes kcl but needs refilled Pt denies any sob Pt denies any history of heart disease or cardiomyopathy chronic pain1 Pt has lupus wit h diffuse joint pain Pt has sheron with rheumatology in December. Pt is on Plaquenil. Pt needs norco refilled. Pt failed NSAID and ultram Pt has joint pain wrist, elbow, hip and knee, etc. Pt denies any worsening pain. Pt also takes neurontin. renal disease1 Pt has stage III renal disease Pt has normal UO, Pt denies any flank pain ,Pt told me she never heard from nephrology HLP Pt needs lipitor refilled. Pt denies any myalgia insomnia1 Pt has chronic i nsomnia. Pt takes ambien qhs PRN and doing ok. Pt denies any snoring or any trouble with breathing at night. renal1 Pt has low renal and high creatine. Pt has normal UO HLP HLP Pt has high TG P t takes lipitor. pt denies any myalgia bunion1 Pt needs bunion surgery and she needs surgical clearance. Lupus Risk factors inc lude female gender. Additional information: Pt told me she has lupus. However, JAROCHO and DSDNA AB are all negative. Pt told me [facility] doctor told her she has lupus and she has been taking Plaquenil for long time for it. Pt has diffuse polyarthralgia Physical Pt needs annual physical. Pt has HTN. Pt takes atenolol/chlorthalidone. Her BP is stable. Pt has HLP Pt takes lipitor. Pt denies any myalgia. PPt has chronic anxiety and depression. Pt takes remeron, wellbutrin and zoloft and ambien and she sees a psychiatrist. Pt denies any suicidal or homicidal thought. Pt denies any crying spells. Pt has diffuse joint pain due to lupus. Pt used to see patient accounting representative but due to insurance issue, she has not been able to follow up with the patient accounting representative. Pt was getting norco from her patient accounting representative. Her previous PCP does not want to treat her chronic pain with opioid. Pt states that she tried and failed NSAID, ultram and codeine. Pt states that her joint pain is severe and she only gets some relieve from norco. Pt denies any other complaints Instructions Date Instruction Additional Infor roger Increase physical activity Relat ed to Stage 3 chronic renal disease Special diet education Related t o Body mass index (BMI) 26.0-26.9, adult Weight management Related to Her pes simplex infection NOS Quit smoking Related to Herpe s simplex infection NOS Increase physical activity Relat ed to Herpes simplex infection NOS Special diet education Related t o Body mass index (BMI) 26.0-26.9, adult Special diet education Related t o Body mass index (BMI) 26.0-26.9, adult Increase physical activity Relat ed to Pain in unspecified joint Weight management Related to Elisha n in unspecified joint Follow a low sodium diet. Relate d to Hyperlipidemia Increase activity. Related to Hy perlipidemia Special diet education Related t o Body mass index (BMI) 26.0-26.9, adult Stop smoking. Related to Hyper lipidemia Increase activity. Related to Hy perlipidemia Special diet education Related t o Body mass index (BMI) 27.0-27.9, adult Follow a low sodium diet. Relate d to Hyperlipidemia Special diet education Related t o Body mass index (BMI) 27.0-27.9, adult Quit smoking Related to Encou nter for general adult medical exam w abnormal findings Assessments Type Assessment Date No Information
[2024-12-29 15:25] LABS: Hematocrit 33.3 % (37.0-47.0); Hemoglobin 10.6 g/dL (12.0-15.0); Immature Granulocyte Percent A 0.7 % (0-0.5); Lymphocytes Absolute Auto 3.55 K/mm3 (0.9-3.2); Mean Corpuscular HGB Conc 31.8 g/dl (32-36); Mean Corpuscular Hemoglobin 27.0 pg (26-34); Mean Corpuscular Volume 84.9 fl (80-100); Nucleated Red Blood Cells Absolute Auto 0.000 K/mm3 (0.0-0.012); Nucleated Red Blood Cells Perc 0.0 % (0.0-0.2); Platelet Count Result 276 k/mm3 (150-375); Red Blood Count 3.92 M/mm3 (4.2-5.4); White Blood Count 14.4 K/mm3 (4.5-10.0)
[2024-12-29 15:31] LABS: Iron 60 ug/dL (37-170)
[2024-12-29 15:40] LABS: Percent Iron Saturation 21 % (20-50)
[2024-12-29 15:41] LABS: Parathyroid Intact 94.5 pg/mL (14.5-75.2)
[2024-12-29 16:00] LABS: Albumin Level 4.3 g/dL (3.5-5.1); Anion Gap 7 mmol/L (4-12); Blood Urea Nitrogen 44 mg/dL (7-17); Calcium 9.9 mg/dL (8.4-10.2); Carbon Dioxide 27 mmol/L (22-30); Chloride 102 mmol/L (98-107); Estimated Glomerular Filt Rate 36; Glucose 91 mg/dL (65-110); Potassium 4.1 mmol/L (3.4-5.0); Sodium 136 mmol/L (137-145)
[2024-12-29 16:10] LABS: MALB Creatinine Ratio 21.6 mg/g (0-30)
[2024-12-29 16:13] LABS: Ferritin 52.50 ng/mL (11.1-264)
--- OUTSIDE RECORDS SUMMARY | 2024-12-29 16:25 | XMS_ITS | Clinical Summary ---
Author Organization [facility] Address [address] [place] [id number] Care Team Providers Care Carbider Name Role Phone Nany Zavaleta NP Primary Care Provider Social History Tobacco Use Types Packs/Day Years Used Date Smoking Tobacco: Never Assessed Comments Unknown Sex and Gender Information Value Date Recorded Sex Assigned at Not on file Legal Sex Female 8:00 PM CDT Gender Identity Not on file Sexual Orientation Not on file Plan of Treatment Health Maintenance Due Date Last Done Comments Cervical Cancer Screening Pa p Smear (Age 30 to 64) Every 3 Years 1963 Colorectal Cancer Screening Colonoscopy (10 Years) 1963 Annual Physical 12/11/1966 Hepatitis C 12/11/1981 DTaP, Tdap and Td Vaccines ( 1 - Tdap) 12/11/1982 Cervical Cancer Screening Pa p with HPV Testing (Age 30 to 64) Every 5 Years 12/11/1993 Cervical Cancer Screening wi th HPV 12/11/1993 Mammogram Screening 2003 Pneumococcal Vaccine: 50+ Years (1 of 1 - PCV) 12/11/2013 COVID-19 Vaccine ( - 2024-2 6 season) 2024 03/22/2021, 08/08/2020, 07/18/2020 RSV Immunization or 60+ Years (1 - 1-dose 75+ series) 12/11/2038 Zoster Vaccines Completed 11/08/2021, 09/04/2021 Meningococcal B Vaccine Aged Out No l onger eligible based on patient's age to complete this topic Meningococcal Vaccine Aged Out No josé estelita eligible based on patient's age to complete this topic RSV Immunizations Under 20 Months Aged Out No longer eligible b ased on patient's age to complete this topic Insurance [employer] Care Teams Carbider Relationship Specialty Start Date End Date Nany Zavaleta NP PCP - General 02/17/16
--- OUTSIDE RECORDS SUMMARY | 2024-12-29 16:25 | XMS_ITS | Clinical Summary ---
Author Organization [email or web address] Address [address] [place] [address] Care Team Providers Care Teacher Adult Education Name Role Phone Ammon Collins MD Primary Care Provider [phone] Source Comments [email or web address],non-owned Affiliates and Associated Physician Practices is amultiple site organization consisting of ambulatory clinics and hospital sitesin [place], [place], [place] and [place]. This disclosure is being madepursuant to the Care Everywhere program and may not contain all information available regarding this patient. Last updated 18.[email or web address] Allergies No known active allergies Medications * Be aware that medications may not be up to date on this document. Alwaysverify current medications with the patient. zolpidem (AMBIEN) 10 MG tablet Take 10 mg by mouth nightly as needed for Insomnia Active cyclobenzaprin e (FLEXERIL) 10 MG tablet Take 10 mg by mouth 3 times daily as needed for Muscle Spasms Active raNITIdine (ZANTAC) 300 MG tablet Take 300 mg by mouth 2 times daily Active gabapentin PHN (GRALISE) 600 MG tablet Take 600 mg by mouth 3 times daily Active atorvastatin (LIPITOR) 20 MG tablet Take 20 mg by mouth at bedtime Active buPROPion SR 12hr (WELLBUTRIN-SR ) 150 MG tablet Take 150 mg by mouth 2 times daily Active sertraline (ZOLOFT) 100 MG tablet Take 150 mg by mouth once daily Take 1 & 1.5 tablets by mouth once daily Active mirtazapine (REMERON) 30 MG tablet Take 30 mg by mouth at bedtime Active prazosin (MINIPRESS) 2 MG capsule Take 5 mg by mouth once daily Active furosemide (LASIX) 40 MG tablet Take 20 mg by mouth once daily Active atenolol-chlor thalidone (TENORETIC 50) 50-25 MG tablet Take 1 tablet by mouth once daily Active HYDROcodone-ac etaminophen (NORCO) 5-325 mg 5-325 mg half tablet Take by mouth every 4 hours as needed Active hydroxychloroq uine (PLAQUENIL) 200 MG tablet Take 1 tablet by mouth 2 times daily 8 Active prednisoLONE acetate (PRED FORTE) 1 % ophthalmic suspension Instill 1 drop into left eye 3 times daily 1 bottles 1 8 Active Additional Information Patient not taking.Reported on 01/12/2019 acyclovir (ZOVIRAX) 800 MG tablet Take 800 mg by mouth once daily 2 9 Active QUEtiapine (SEROQUEL) 100 MG tablet Take 100 mg by mouth at bedtime 3 9 Active triamcinolone acetonide (KENALOG) 0.1 % cream Apply 1 applicatorful to affected area 2 times daily Active potassium chloride ER (KLOR-CON) 20 MEQ tablet Take 20 mEq by mouth once daily 2 9 Active allopurinol (ZYLOPRIM) 100 MG tablet Take 1 tablet by mouth as needed Active Aspirin-Acetam inophen-Caffei ne (GOODYS EXTRA STRENGTH) 520-260-32.5 MG Take 1 tablet by mouth as needed Active Active Problems Problem Noted Date Diagnosed Date Orbital fracture, closed, initial encounter 07/2017 Systemic lupus erythematosus 10/06/2014 Immunizations Immunization Administration Dates Next Due INFLUENZA VACCINE, QUADR. (F LUZONE; FLULAVAL; FLUARIX; AFLURIA QUADRIVALENT; 6MO+), 0.5 ML (IIV4) 01/12/2019 Family History * Patient is adopted Medical History Relation Name Comments None Known Brother None Known Father None Known Maternal Grandfather None Known Maternal Grandmother None Known Mother None Known Paternal Grandfather None Known Paternal Grandmother None Known Sister Lupus Neg Hx Relation Name Status Comments Brother Father Other Maternal Grandfather Maternal Grandmother Mother Other Paternal Grandfather Paternal Grandmother Sister Social History Tobacco Use Types Packs/Day Years Used Date Smoking Tobacco: Every Day Cigarettes Smokeless Tobacco: Never Alcohol Use Standard Drinks/Week Comments Yes 0 (1 standard drink = 0.6 oz pur e alcohol) Comments Unknown Sex and Gender Information Value Date Recorded Sex Assigned at Not on file 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 Gender Identity Not on file Sexual Orientation Not on file Last Filed Vital Signs Vital Sign Reading Time Taken Comments Blood Pressure 120/70 01/12/2019 10:23 AM CDT Pulse 67 01/12/2019 10:23 AM CDT Temperature 37 C (98.6 F) 01/12/2019 10:23 AM CDT Respiratory Rate - - Oxygen Saturation 97% 01/12/2019 10:23 AM CDT Inhaled Oxygen Concentration - - Weight 71.7 kg (158 lb) 01/12/2019 10:23 AM CDT Height 160 cm (5' 3) 01/12/2019 10:23 AM CDT Body Mass Index 27.99 01/12/2019 10:23 AM CDT Plan of Treatment Health Maintenance Due Date Last Done Comments COLOGUARD (AGES 45-75) - COL ON CA SCREENING 1963 COLON MONITORING 1963 COLONOSCOPY - COLON CA SCREENING 1963 CT COLONOGRAPHY - COLON CA SCREENING 1963 Colorectal Cancer Screening 1963 FIT - COLON CA SCREENING 1963 FLEX SIG - COLON CA SCREENING 1963 MAMMOGRAM 1963 HIV SCREENING 12/11/1978 HEPATITIS C SCREENING 12/07/1981 DTAP/TDAP/TD VACCINES (1 - Tdap) 12/11/1982 PNEUMOCOCCAL VACCINE 50+ (1 of 2 - PCV) 12/11/1982 ZOSTER VACCINE (1 of 2) 12/11/2013 SCREENING FOR DIABETES 03/21/2018 DEPRESSION SCREENING 04/22/2024 COVID-19 VACCINE (1 - 2023-2 5 season) 2024 INFLUENZA VACCINE (#1) 2024 01/12/2019 Respiratory Syncytial Virus (RSV) Vaccine Pt: or over 60 yrs (1 - 1-dose 75+ series) 12/11/2038 HEPATITIS B VACCINE Aged Out No longe r eligible based on patient's age to complete this topic HIB VACCINE Aged Out No longer eligi ble based on patient's age to complete this topic HPV VACCINE Aged Out No longer eligi ble based on patient's age to complete this topic MENINGOCOCCAL (Group B) VACC INE SHARED DECISION-MAKING Aged Out No longer eligibl e based on patient's age to complete this topic MENINGOCOCCAL GROUPS A/C/Y/W VACCINE Aged Out No longer eligible b ased on patient's age to complete this topic Insurance [facility] Care Teams Teacher Adult Education Relationship Specialty Start Date End Date Ammon Collins MD [address] [place] [id number] PCP - General 01/22/19
--- OUTSIDE RECORDS SUMMARY | 2024-12-29 16:25 | XMS_ITS | Encounter Summary ---
Author Organization [facility] Healthcare Address [address] [place] [address] Care Team Providers Care Photographer Scientific Name Role Phone Malcolm Phelps MD Primary Care Provider Kellie Barry MD Unavailable [phone] Kelly Donohue MD Unavailable Reason for Visit * Reason Onset Date Comments Chart Prep 12/28/2024 Call made to the patient, ct order Encounter Details Date Type Department Care Team (Late st Contact Info) Description 12/28/2024 Telephone [facility] Medical Group [address] [place] [phone] Ilda Goss MA Chart Prep (Call made to the patient, ct order) Social History Tobacco Use Types Packs/Day Years Used Date Smoking Tobacco: Every Day Cigarettes 0.2 24 Started: 12/29/2000 Smokeless Tobacco: Never Alcohol Use Standard Drinks/Week Comments Yes 0 (1 standard drink = 0.6 oz pur e alcohol) Sometimes [facility] Utilities Answer Date Recorded In the past 12 months has [employer] electric, gas, oil, or water company threatened to shut off services in your home? No 09/07/2024 Social Connection and Isolation Panel Answer Date Recorded In a typical week, how many times do you talk on the phone with family, friends, or neighbors? More than three times a week 09/07/2024 How often do you get togethe r with friends or relatives? More than three times a week 09/07/2024 How often do you attend chur ch or hindu services? Never 09/07/2024 Do you belong to any clubs o r organizations such as baptist groups, unions, fraternal or athletic groups, or school groups? No 09/07/2024 How often do you attend meet ings of the clubs or organizations you belong to? Never 09/07/2024 Are you , , di vorced, , never , or living with a partner? 09/07/2024 AUDIT-C Answer Date Recorded Q1: How often do you have a drink containing alcohol? Never 11/11/2024 Q2: How many drinks containi ng alcohol do you have on a typical day when you are drinking? Patient does not drink Q3: How often do you have si x or more drinks on one occasion? Never 11/11/2024 Overall Financial Resource Strain (CARDIA) Answe r Date Recorded How hard is it for you to pa y for the very basics like food, housing, medical care, and heating? Not very hard 09/07/2024 PHQ-2 Answer Date Recorded PHQ-2 Total Score (If total score is 3 or more points, staff should administer the PHQ-9) 0 07/22/2024 Hunger Vital Sign Answer Date Recorded Within the past 12 months, y ou worried that your food would run out before you got the money to buy more. Never true 11/12/19 Within the past 12 months, t he food you bought just didn't last and you didn't have money to get more. Never true 11/11/2024 PRAPARE - Transportation Answer Date Re corded In the past 12 months, has l ack of transportation kept you from medical appointments or from getting medications? No 08/20 In the past 12 months, has l ack of transportation kept you from meetings, work, or from getting things needed for daily living? No 09/07/2024 PHQ-9 Answer Date Recorded PHQ-9 Total Score 0 07/22/2024 Housing Stability Vital Sign Answer Jerry e Recorded In the last 12 months, was t here a time when you were not able to pay the mortgage or rent on time? No 09/07/2024 In the past 12 months, how m any times have you moved where you were living? 0 09/07/2024 At any time in the past 12 [facility], were you homeless or living in a custodial (including now)? No 09/07/2024 Personal Safety Answer Date Recorded Have you ever been in or are you currently in a harmful physical or emotional relationship or is someone making you feel afraid or unsafe? 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 No answer. Left message with scheduling number and then to contact our office to r/s up coming appointment if not able to get completed. documented in this encounter Plan of Treatment Not on file documented as of this encounter Goals Goal Patient Goal Type Associated Problems Recent Progress Patient-Stated? Author CCM Chronic Pain Care Plan Chronic Care Management No change(11/11 11:37 AM CDT) No Elizabeth Wynne RN Note: Problem: Chronic Pain Goals: 1. Minimize further functional decline 2. Maximize quality of life 3. Control pain Strategies: - Activity/exercise program recommendation - Conservative stepwise pain medicine strategy with multi-disciplinary approach - Recommend healthy lifestyle strategies and compensatory methods as needed documented as of this encounter Visit Diagnoses Not on filedocumented in this encounter Care Teams Photographer Scientific Relationship Specialty Start Date End Date Malcolm Phelps MD [address] [place] [address] PCP - General Family Medicine 10/09/22 Kellie Barry MD [address] [address] Consulting Physician Pulmonary Disease 09/15/23 Kelly Donohue MD [address] [address] Fellow Rheumatology 02/03/24 documented as of this encounter
--- OUTSIDE RECORDS SUMMARY | 2024-12-29 16:25 | XMS_ITS | Encounter Summary ---
Author Organization [facility] Healthcare Address [address] [place] [address] Care Team Providers Care Director Of Payroll Name Role Phone Malcolm Phelps MD Primary Care Provider Kellie Barry MD Unavailable Kelly Donohue MD Unavailable Encounter Details Date Type Department Care Team (Late st Contact Info) Description 12/24/2024 Results Follow-Up [facility] Medical Group Family Medicine at [address] [place] [phone] Malcolm Phelps MD [address] [place] [address] [address] [place] [address] SCAN - RADIOLOGY/IMAGING Social History Tobacco Use Types Packs/Day Years Used Date Smoking Tobacco: Every Day Cigarettes 0.2 24 Started: 12/29/2000 Smokeless Tobacco: Never Alcohol Use Standard Drinks/Week Comments Yes 0 (1 standard drink = 0.6 oz pur e alcohol) Sometimes [facility] Utilities Answer Date Recorded In the past 12 months has [employer], gas, oil, or water company threatened to [...] often do you attend chur ch or zoroastrianism services? Never 09/07/2024 Do you belong to any clubs o r organizations such as anabaptism groups, unions, fraternal or athletic groups, or [...] any time in the past 12 m [facility], were you homeless or living in a senior care (including now)? No 09/07/2024 Personal Safety Answer Date Recorded Have you ever been in or are you currently in a harmful physical or emotional relationship or is someone making you feel afraid or unsafe? 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 Author CCM Chronic Pain Care Plan Chronic Care Management No change(11/11 11:37 AM CDT) No Elizabeth Wynne, RN Note: Problem: Chronic Pain Goals: 1. Minimize further functional decline 2. Maximize quality of life 3. Control pain Strategies: - Activity/exercise program recommendation - Conservative stepwise pain medicine strategy with multi-disciplinary approach - Recommend healthy lifestyle strategies and compensatory methods as needed documented as of this encounter Visit Diagnoses Not on filedocumented in this encounter Care Teams Director Of Payroll Relationship Specialty Start Date End Date Malcolm Phelps MD [address] [address] PCP - General Family Medicine 10/09/22 Kellie Barry MD [facility] [address] Consulting Physician Pulmonary Disease 09/15/23 Kelly Donohue MD [address] [address] Fellow Rheumatology 02/03/24 documented as of this encounter
--- OUTSIDE RECORDS SUMMARY | 2024-12-29 16:25 | XMS_ITS | Clinical Summary ---
Author Organization [facility] Address [address] [place] [address] Care Team Providers Care Foot Orthopedist Name Role Phone Malcolm Phelps MD Primary Care Provider [phone] Kellie Baryr MD Unavailable Kelly Donohue MD Unavailable Allergies No known active allergies Medications ergocalciferol (VITAMIN D) 50,000 unit capsule TAKE 1 CAPSULE BY MOUTH ONE TIME PER WEEK 4 capsule 11 024 Active Additional Information Patient not taking.Reported on 12/17/2024 psyllium husk (KONSYL) 6 gram packet Take 1 packet (6 g total) by mouth daily 30 packet 11 024 Active Additional Information Patient not taking.Reported on 12/25/2024 tiZANidine (ZANAFLEX) 4 mg tabletIndication s:Trapezius muscle spasm TAKE 1 TABLET BY MOUTH EVERY DAY 30 tablet Active Additional Information Patient not taking.Reported on 12/25/2024 allopurinoL 200 mg tabletIndication s:Gout, unspecified cause, unspecified chronicity, unspecified site Take 200 mg by mouth daily 90 tablet 3 024 2024 Active butalbital-aceta minophen-caffein e (ESGIC) 50-325-40 mg per tabletIndication s:Tension headache Take 1 tablet by mouth every 6 (six) hours as needed for headaches 30 tablet 1 024 Active oxyBUTYnin XL (DITROPAN-XL) 10 mg 24 hr tabletIndication s:Nocturnal enuresis Take 1 tablet (10 mg total) by mouth daily 90 tablet 3 024 Active prazosin (MINIPRESS) 5 mg capsule Take 2 capsules (10 mg total) by mouth as needed (Sleep) 90 capsule 3 024 2024 Active Additional Information Patient not taking.Reported on 12/17/2024 traMADoL (ULTRAM) 50 mg tabletIndication s:Systemic lupus erythematosus, unspecified SLE type, unspecified organ involvement status (HCC) Take 1 tablet (50 mg total) by mouth every 8 (eight) hours as needed for pain 90 tablet 5 025 2024 Active hydroxychloroqui ne (PLAQUENIL) 200 mg tabletIndication s:Systemic lupus erythematosus, unspecified SLE type, unspecified organ involvement status (HCC) Take 1 tablet (200 mg total) by mouth daily 180 tablet 1 025 Active vortioxetine (Trintellix) 10 mg tablet Take 1 tablet (10 mg total) by mouth daily Active omeprazole (PriLOSEC) 40 mg capsuleIndicatio ns:Gastroesophag eal reflux disease with esophagitis, unspecified whether hemorrhage Take 1 capsule (40 mg total) by mouth daily 90 capsule 1 025 2024 Active docusate sodium (COLACE) 100 mg capsuleIndicatio ns:constipation Take 1 capsule (100 mg total) by mouth daily 30 capsule 025 Active guanFACINE (TENEX) 1 mg tablet Take 1 tablet (1 mg total) by mouth nightly 025 Active furosemide (LASIX) 40 mg tablet Take 1 tablet (40 mg total) by mouth daily 90 tablet 1 025 Active atorvastatin (LIPITOR) 20 mg tabletIndication s:Mixed hyperlipidemia Take 1 tablet (20 mg total) by mouth daily 90 tablet 1 025 Active lisinopriL (PRINIVIL,ZESTRI L) 10 mg tabletIndication s:Essential hypertension Take 1 tablet (10 mg total) by mouth daily 90 tablet 1 025 2025 Active lidocaine (LIDODERM) 5 % APPLY 1 PATCH TOPICALLY DAILY. 30 patch 1 Active varenicline tartrate (CHANTIX) 1 mg tabletIndication s:Tobacco use disorder TAKE 1 TABLET BY MOUTH 2 TIMES A DAY TAKE WITH FULL GLASS OF WATER. 60 tablet 2 Active triamcinolone (KENALOG) 0.1 % cream APPLY TO AFFECTED AREA TWICE A DAY 30 g 1 Active Linzess 145 mcg capsuleIndicatio ns:Chronic idiopathic constipation TAKE 1 CAPSULE BY MOUTH EVERY DAY 30 capsule 2 Active hydrOXYzine (ATARAX) 25 mg tabletIndication s:Eczema, unspecified type TAKE 1 TABLET (25 MG TOTAL) BY MOUTH EVERY 4 (FOUR) HOURS NEEDED FOR ITCHING 100 tablet Active gabapentin (NEURONTIN) 600 mg tabletIndication s:Fibromyalgia TAKE 1.5 TABLETS BY MOUTH 3 TIMES DAILY. 270 tablet Active acyclovir (ZOVIRAX) 800 mg tabletIndication s:Herpes TAKE 1 TABLET BY MOUTH DAILY. 30 tablet Active denosumab (Prolia) 60 mg/mL syringeIndicatio ns:postmenopausa l osteoporosis and high fracture risk Inject 1 mL (60 mg total) under the skin once for 1 dose 1 mL Active aspirin 325 mg tablet Take 2 tablets (650 mg total) by mouth every 8 (eight) hours Active pantoprazole DR (PROTONIX) 40 mg EC tablet Take 1 tablet (40 mg total) by mouth 2 (two) times a day Active doxycycline 100 mg tablet Active cyclobenzaprine (FLEXERIL) 10 mg tablet cyclobenzaprine 10 mg tablet TAKE 1 TABLET BY MOUTH AT BEDTIME FOR 7 DAYS 2024 Discontinued( Patient Reported) denosumab (Prolia) 60 mg/mL syringeIndicatio ns:postmenopausa l osteoporosis and high fracture risk Inject 1 mL (60 mg total) under the skin once for 1 dose 1 mL 025 2024 Discontinued( Reorder) diclofenac sodium (VOLTAREN) 1 % gel Apply 4 g topically 4 (four) times a day as needed (hand pain) 200 g 1 025 2024 Discontinued linaCLOtide (Linzess) 145 mcg capsuleIndicatio ns:Chronic idiopathic constipation Take 1 capsule (145 mcg total) by mouth daily 30 capsule 2 025 2024 Discontinued triamcinolone (KENALOG) 0.1 % cream APPLY TO AFFECTED AREA TWICE A DAY 30 g 1 025 2024 Discontinued gabapentin (NEURONTIN) 600 mg tabletIndication s:Fibromyalgia TAKE 1.5 TABLETS BY MOUTH 3 TIMES DAILY 270 tablet 025 2024 Discontinued acyclovir (ZOVIRAX) 800 mg tabletIndication s:Herpes TAKE 1 TABLET BY MOUTH DAILY. 30 tablet 025 2024 Discontinued hydrOXYzine (ATARAX) 25 mg tabletIndication s:Eczema, unspecified type TAKE 1 TABLET (25 MG TOTAL) BY MOUTH EVERY 4 (FOUR) HOURS NEEDED FOR ITCHING 100 tablet 025 2024 Discontinued Active Problems Problem Noted Date Diagnosed Date Lumbar radiculopathy 11/11/2024 Sepsis 09/06/2024 Overview (09/06/2024): Associated with colitis etiology WBC 36748, lactic acid 3.4, heart rate 103, respiratory rate 22 Repeat lactate level 3.2 IV fluid IV antibiotic with ceftriaxone and metronidazole Pending follow-up of blood cultures x2 Assessment & Plan (09/06/2024 2:02 AM CDT): Associated with colitis etiology WBC 36605, lactic acid 3.4, heart rate 103, respiratory rate 22 Repeat lactate level 3.2 IV fluid IV antibiotic with ceftriaxone and metronidazole Pending follow-up of blood cultures x2 Colitis 09/06/2024 Overview (09/06/2024): Assessment & Plan (09/06/2024 2:03 AM CDT): As noted on CT imaging IV antibiotics and ceftriaxone at IV metronidazole Pain management p.r.n. IV fluid Scalp hematoma 09/06/2024 Overview (09/06/2024): Assessment & Plan (09/06/2024 2:14 AM CDT): Associated with fall the patient experienced earlier today No active bleeding noted, crusted lesion on forehead with mild swelling and minimal tenderness on palpitation Neurologic checks Fall precaution Pain management p.r.n. Elevated troponin 09/06/2024 Overview (09/06/2024): Assessment & Plan (09/06/2024 7:06 AM CDT): Patient denies experiencing any chest pain symptoms EKG inconclusive Elevated troponin markers Cardiology consultation Coronary artery calcification 08/31/2024 Overview (08/31/2024): CT (08/30/24) Sacroiliitis, not elsewhere classified Pain in both feet 08/05/2024 Osteoporosis of lumbar spine 01/13/2024 Assessment & Plan (12/17/2024 3:46 PM CDT): Chronic problem. DEXA 09/2022 showed osteoporosis L spine & osteopenia L femoral neck & L hip. Had only Prolia injection 03/03/24. Informed that she is to get Prolia twice yearly. Ordered today. She is aware to call for nurse visit Did not have DEXA repeated last year. Ordered at this time for [facility]. Phone # given for her to reach out to set up DEXA. Follow a Bone Healthy Diet and lifestyle: -Consume Calcium and vit D rich foods -Calcium and vitamin D3 supplementation daily: Calcium 3242-0307 mg total daily dose, take with food. Vit D 50,000IU total every other week -Fall precautions--be careful. Bone thinning could be an easy fracture. -Perform weight bearing exercises at least 3 days a week for bone strengthening (walking is an excellent option). Assessment & Plan (01/13/2024 2:36 PM CDT): Chronic problem. DEXA last year showed osteoporosis L spine & osteopenia L femoral neck & L hip. Was to have Prolia injection but never rec'd. Sent script to [facility]. Aware to call office (# given) once rec'd & to have nurse visit scheduled (at [facility] office). Will plan NOV 7 mos from now when next injection will be due). Reviewed SE/scheduling. Will update DEXA at [facility] in [place].Verified that she uses mychart. Aware to check results/results letter in mychart. Will contact by phone if needed. Follow a Bone Healthy Diet and lifestyle: -Consume Calcium and vit D rich foods -Calcium and vitamin D3 supplementation daily: Calcium 9713-5862 mg total daily dose, take with food. Vit D 50,000IU total weekly -Fall precautions--be careful. Bone thinning could be an easy fracture. -Perform weight bearing exercises at least 3 days a week for bone strengthening (walking is an excellent option). Severe protein-calorie malnutrition 09/13/2023 Partial small bowel obstruction 09/11/2023 SARAH (acute kidney injury) 09/11/2023 Assessment & Plan (09/06/2024 2:04 AM CDT): Urinalysis negative Likely associated with colitis etiology IV fluid Pending re-evaluation of BUN and creatinine levels with a.m. 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 She was on ergocalciferol 50,000IU every other week but has missed 2+ months. Again discussed that low vitamin D levels can lead to overproduction of parathyroid hormone (which controls calcium). Can cause osteopenia/osteoporosis. Will update labs today. Verified that she uses mychart. Aware to check results/results letter in mychart. Will contact by phone if needed. Assessment & Plan (01/13/2024 2:37 PM CDT): Chronic problem. Will update labs today. Verified that she uses mychart. Aware to check results/results letter in mychart. Will contact by phone if needed. Again discussed that low vitamin D levels can lead to overproduction of parathyroid hormone (which controls calcium). Can cause osteopenia/osteoporosis. Assessment & Plan (08/02/2022 4:48 PM CDT): Will treat vitamin-D deficiency Will assess for metabolic bone disease with bone density and will treat as indicated The patient is advised to take 500 mg elemental calcium twice a day and also weight bearing exercise Smoking cessation also was discussed Diastolic congestive heart failure 07/14/2022 Shortness of breath 07/11/2022 Pneumonia of right middle lobe due to infectious organism 06/02/2022 Moderate episode of recurrent major depressive d isorder 05/22/2022 Insomnia 05/22/2022 Nocturnal enuresis 12/04/2021 Assessment & Plan (09/24/2022 12:07 PM CDT): -Using oxybutynin in evening and helps with bedwetting episodes. -Denies issues with voiding on this medication. -Reports continued stress due to health issues. PLAN: -Continue oxybutynin 10mg XL nightly. Assessment & Plan (12/04/2021 11:37 AM CDT): -History of bed wetting until age 10. Does report increased stress recently which can make episode reoccur in adulthood. She denies issues during the day but reports she feels she doesn't void very much during the day. -PVR was unremarkable at 60 mL. POCT UA unremarkable. -She does admit to drinking fluid up until bedtime. -Does feel oxybutynin 10mg has improved her episodes. PLAN: -Continue oxybutynin 10mg XL. She takes this a few hours before bedtime. -Avoid all fluids at least 3 hours before bedtime. -Avoid caffeine starting in afternoon. -Stress management techniques. -Will f/u in a few months to re-evaluate. Smoking greater than 20 pack years 05/30/2021 Depressive disorder 12/29/2020 Gout 12/29/2020 Hypertensive disorder 12/29/2020 Yun's neuroma of left foot 07/03/2020 Metatarsalgia of left foot 05/13/2020 Postoperative pain 12/15/2019 Postoperative visit 12/15/2019 Bunion 11/16/2019 Essential hypertension 10/14/2019 Vitamin D deficiency 10/21/2018 Assessment & Plan (12/17/2024 3:47 PM CDT): Chronic problem. Had been taking ergocalciferol 50,000IU every other week. Has not had in 2+ months. Will update D level today. Verified that she uses [employer]. Aware to check results/results letter in [employer]. Will contact by phone if needed. Assessment & Plan (01/13/2024 2:36 PM CDT): Chronic problem. Currently taking ergocalciferol 50,000IU weekly. Will update D level today. Verified that she uses mychart. Aware to check results/results letter in [employer]. Will contact by phone if needed. Assessment & Plan (08/02/2022 4:43 PM CDT): Start ergocalciferol 25591 IU use weekly Recheck vitamin-D levels in 2 months Orbital fracture, closed, initial encounter 07/2017 Trochanteric bursitis 01/04/2017 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 Chronic renal insufficiency, stage III (moderate ) 11/04/2015 Mixed hyperlipidemia 11/04/2015 Chronic kidney disease, stage 4 (severe) 016 Meibomian gland dysfunction (MGD) 06/22/2015 Fibromyalgia 04/17/2013 Systemic lupus erythematosus 11/03/2010 Resolved Problems Problem Noted Date Diagnosed Date Resolved Date Lupus erythematosus 10/21/2018 07/28/19 23 Encounters Date Type Department Care Team Description 12/28/2024 Telephone [facility] Medical Group Pulmonary [facility] [address] [place] [phone] Ilda Goss MA Chart Prep (Call made to the patient, ct order) 12/25/2024 10:07 AM CDT - 12/25/2024 11:59 PM CDT Hospital Encounter [address] [address] Systemic lupus erythematosus, unspecified SLE type, unspecified organ involvement status (HCC); Chest pain, unspecified type Discharge Disposition: Discharge to home or self care 12/25/2024 9:45 AM CDT - 12/25/2024 11:59 PM CDT Hospital Encounter [facility] [address] [place] [address] Discharge Disposition: Discharge to home or self care 12/25/2024 9:23 AM CDT - 12/25/2024 11:59 PM CDT Hospital Encounter [facility] [address] [place] [phone] Systemic lupus erythematosus, unspecified SLE type, unspecified organ involvement status (HCC); Chest pain, unspecified type Discharge Disposition: Discharge to home or self care 12/25/2024 8:45 AM CDT Lab [facility] Medicine Endocrinology Metabolism and Lipid [address] [place] [address] 5th [place] [address] Systemic lupus erythematosus, unspecified SLE type, unspecified organ involvement status (HCC); Chest pain, unspecified type 12/25/2024 7:45 AM CDT Office Visit [facility] [address] [place] [address] Medicine 5th [place] [phone] Kelly Donohue MD Systemic lupus erythematosus, unspecified SLE type, unspecified organ involvement status (HCC) (Primary Dx); Chest pain, unspecified type 12/25/2024 [facility] [address] [place] [address] 5th [place] [address] Kelly Donohue MD 12/24/2024 Results Follow-Up [facility] Medical Group Family Medicine at [address] [place] [address] Malcolm Phelps MD SCAN - RADIOLOGY/IMAGING 12/19/2024 Orders Only [facility] Health Information Management [address] [place] [address] Malcolm Phelps MD 12/19/[address] [phone] Taras Fontaine MD Transfer Notification 12/18/2024 Results Follow-Up [facility] Family Medicine at [address] [phone] Malcolm Phelps MD PTH, Vitamin D 25 hydroxy 12/17/2024 3:35 PM CDT Lab [address] [address] Hyperparathyroidism , secondary, non-renal; Vitamin D deficiency 12/17/2024 3:00 PM CDT Office Visit [facility] Diabetes and Endocrinology [address] [place] [phone] Elvia Krueger, DOMINGA Osteoporosis of lumbar spine (Primary Dx); Hyperparathyroidism , secondary, non-renal; Vitamin D deficiency 11/11/2024 11:23 AM CDT - 11/11/2024 11:59 PM CDT Hospital Encounter [facility] [address] [place] [address] [place] [phone] Reginald Palomino MD Lumbar radiculopathy Discharge Disposition: Discharge to home or self care 11/06/2024 Telephone [facility] [address] [place] [address] [place] [phone] Reginald Palomino MD [facility] Preprocedure 10/27/2024 12:45 PM CDT Office Visit [facility] Medical [facility] Family Medicine at [address] [place] [address] Malcolm Phelps MD Essential hypertension (Primary Dx); Fibromyalgia; Mixed hyperlipidemia; Herpes; Eczema, unspecified type 09/28/2024 1:14 PM CDT - 09/28/2024 11:59 PM CDT Hospital Encounter [facility] [address] [facility] [address] [place] [address] Reginald Palomino MD Lumbar radiculopathy (Primary Dx) Discharge Disposition: Discharge to home or self care from Last 3 Months Immunizations Immunization Administration Dates Next Due Influenza, Quadrivalent, Spl it, Preservative Free, Intramuscular 01/12/2019 Influenza, Unspecified 02/03/2024(Deferr ed: Patient decision),07/05/2023(Deferred: Patient decision),01/09/2023(Deferred: Patient Refused),12/27/2021(Deferred: Patient decision),03/30/2021(Deferred: Patient Refused),01/12/2019 Pfizer SARS-CoV-2 Monovalent Vaccination (12+ Yrs) PURPLE 08/08/2020,07/18/2020 Pneumococcal Conjugate Pcv20 02/03/2024(Deferred : Patient decision) ZOSTER Recombinant 11/08/2021,09/04/2021 Surgical History Surgery Date Site/Laterality Comments APPENDECTOMY SMALL INTESTINE SURGERY FOOT SURGERY Left COLON SURGERY Medical History Medical History Date Comments Tobacco abuse counseling Encount er for smoking cessation counseling - (Added by TW Conv) Gout Hyperlipidemia Chronic kidney disease Lupus erythematosus 10/21/2018 GERD (gastroesophageal reflux disease) Anxiety Arthritis Depression Migraines Hypertension Extremity pain Osteoporosis Mid back pain Fibromyalgia, primary Low back pain Joint pain Neck pain SBO (small bowel obstruction) ([facility]) Family History * Patient is adopted Medical History Relation Name Comments No Known Problems Daughter 1 No Known Problems Daughter 2 No Known Problems Son 1 No Known Problems Son 2 Relation Name Status Comments Daughter 1 Alive Daughter 2 Alive Son 1 Alive Son 2 Alive Social History Tobacco Use Types Packs/Day Years Used Date Smoking Tobacco: Every Day Cigarettes 0.2 24 Started: 12/29/2000 Smokeless Tobacco: Never Tobacco Cessation:Ready to Q uit: Yes; Counseling Given: Not Answered Alcohol Use Standard Drinks/Week Comments Yes 0 (1 standard drink = 0.6 oz pur e alcohol) Sometimes C Utilities Answer Date Recorded In the past 12 months has th e electric, gas, oil, or water company threatened [...] often do you attend chur ch or uatsdin services? Never 09/07/2024 Do you belong to any clubs o r organizations such as adventism groups, unions, fraternal or athletic groups, or [...] money to buy more. Never true 11/12/19 25 Within the past 12 months, t he [...] any time in the past 12 m ont, were you homeless or living in a [...] on file Legal Sex Female 2:56 AM SWEEP PRESS OPERATOR Gender Identity Female 12/26/2020 11:37 PM CDT Sexual Orientation Straight 12/26/2020 11 :37 PM CDT Obstetrics History Para Term AB IAB SAB Ectopic Multiple Livin g Live Births 4 4 4 Date Outcome GA Total Labor Labor/2nd/3rd Weight Sex Type Anes PTL Irma A1 A5 Name Clin Term Term Term Term Last Filed Vital Signs Vital Sign Reading Time Taken Comments Blood Pressure 145/78 12/25/2024 7:42 AM CDT Pulse 84 12/25/2024 7:42 AM CDT Temperature 36.8 C (98.3 F) 12/25/2024 7:42 AM CDT Respiratory Rate 18 12/17/2024 2:54 PM CDT Oxygen Saturation 98% 11/11/2024 12:29 PM CDT Inhaled Oxygen Concentration - - Weight 53.5 kg (118 lb) 12/25/2024 7:42 AM CDT Height 157.5 cm (5' 2) 12/25/2024 7:42 AM CDT Body Mass Index 21.58 12/25/2024 7:42 AM CDT Plan of Treatment Health Maintenance Due Date Last Done Comments DTaP/Tdap/Td Vaccine (1 - Tdap) 12/11/1974 Hepatitis B Screening 12/11/1981 Cervical Cancer Screening 06/18/2024 06/18/2023, Covid-19 Vaccine ( season) 2024 03/22/2021, 08/08/2020, 07/18/2020 Influenza Vaccine (#1) 2024 01/12/2019, 2018 Pneumococcal vaccine <65 (1 of 2 - PCV) 01/18/2025 Postponed from 12/11/1982 (Patient declined, but will receive in the future) Breast Cancer Screening-Mammogram 02/24/2025 02/25/2024, 11/23/2022 Depression Screening 07/22/2025 07/22/2024, 07/22/2024, 07/05/2023, Additional history exists Regular Well Visit/Exam 18-64 07/22/2025 07/22/2024, 06/18/2023, 04/05/2023 Colon Cancer Screening-Colonoscopy 12/27/2030 12/27/2020 Colon Cancer Screening-CT Colonography Discontinued 12/27/2020 Colon Cancer Screening-DNA Stool Discontinued 12/27/2020 Colon Cancer Screening-FIT Discontinued 12/27/2020 Colon Cancer Screening-Sigmoidoscopy Discontinued 12/27/2020 Zoster Vaccine Completed 11/08/2021, 09/04/2021 Hepatitis C Screening Completed 06/18/2023, 023 Goals Goal Patient Goal Type Associated Problems [...] lifestyle strategies and compensatory methods as needed Procedures Procedure Name Priority Date/Time Associated Diagnosis Comments XR CHEST PA LATERAL 2 VIEWS Schedule Routine, Read Routine (OP Routine) 12/25/2024 9:33 AM CDT Systemic lupus erythematosus, unspecified SLE type, unspecified organ involvement status (HCC) Chest pain, unspecified type C3 COMPLEMENT Routine 12/25/2024 9:02 AM CDT Systemic lupus erythematosus, unspecified SLE type, unspecified organ involvement status (HCC) C4 COMPLEMENT Routine 12/25/2024 9:02 AM CDT Systemic lupus erythematosus, unspecified SLE type, unspecified organ involvement status (HCC) Chest pain, unspecified type ANTI-DOUBLE STRANDED DNA ANTIBODIES Routine 12/25/2024 9:02 AM CDT Systemic lupus erythematosus, unspecified SLE type, unspecified organ involvement status (HCC) Chest pain, unspecified type PROTEIN / CREATININE RATIO, URINE, RANDOM Routine 12/25/2024 9:02 AM CDT Systemic lupus erythematosus, unspecified SLE type, unspecified organ involvement status (HCC) Chest pain, unspecified type TROPONIN I HIGH-SENSITIVITY Routine 12/25/2024 9:02 AM CDT Systemic lupus erythematosus, unspecified SLE type, unspecified organ involvement status (HCC) Chest pain, unspecified type CBC WITH AUTO DIFFERENTIAL Routine 12/25/2024 9:02 AM CDT Systemic lupus erythematosus, unspecified SLE type, unspecified organ involvement status (HCC) Chest pain, unspecified type CRP (ACUTE PHASE) Routine 12/25/2024 9:0 2 AM CDT Systemic lupus erythematosus, unspecified SLE type, unspecified organ involvement status (HCC) Chest pain, unspecified type COMPREHENSIVE METABOLIC PANEL Routine 12/25/2024 9:02 AM CDT Systemic lupus erythematosus, unspecified SLE type, unspecified organ involvement status (HCC) Chest pain, unspecified type ERYTHROCYTE SEDIMENTATION RATE Routine 12/25/2024 9:02 AM CDT Systemic lupus erythematosus, unspecified SLE type, unspecified organ involvement status (HCC) Chest pain, unspecified type URINALYSIS AND REFLEX TO MICROSCOPIC AND CULTURE Routine 12/25/2024 9:02 AM CDT Systemic lupus erythematosus, unspecified SLE type, unspecified organ involvement status (HCC) Chest pain, unspecified type SCAN - RADIOLOGY/IMAGING 12/19/2024 VITAMIN D 25 HYDROXY Routine 12/17/2024 3:45 PM CDT Vitamin D deficiency PTH Routine 12/17/2024 3:45 PM CDT Hyperparathyroidism , secondary, non-renal PAIN MGMT IMAGING LUMBAR/CAUDAL EPIDURAL STEROID INJ Schedule Routine, Read Routine (OP Routine) 11/11/2024 12:16 PM CDT Lumbar radiculopathy SCREENING MAMMOGRAM BILATERAL W TEVIN Schedule Routine, Read Routine (OP Routine) 02/25/2024 2:49 PM SWEEP PRESS OPERATOR Screening mammogram, encounter for HIGH RISK HPV DNA DETECTION WITH GENOTYPING Routine 06/18/2023 11:33 AM SWEEP PRESS OPERATOR Screening for cervical cancer HEPATITIS PANEL, ACUTE Routine 06/18/2023 11:19 AM SWEEP PRESS OPERATOR Screening for STD (sexually transmitted disease) COLONOSCOPY Routine 12/27/2020 from Last 3 Months or Most Recently Relevant to Health Maintenance Results * X-ray chest 2 views (12/25/2024 9:33 AM CDT) Anatomical Region Laterality Modality Body, Chest N/A Computed Radiogr aphy 12/25/2024 12:3 7 PM CDT Impressions 12/25/2024 12:37 PM CDT Comparison is made to prior from 09/05/2024. The heart size is normal. No scarring in the right upper lobe. Left lung clear. No pleural effusion or pneumothorax. Electronically signed by: Kvng Murdock M.D. Narrative 12/25/2024 12:37 PM CDT EXAMINATION: 2 view chest radiograph Procedure Note Kvng Murdock MD - 12/25/2024 EXAMINATION: 2 view chest radiograph IMPRESSION: Comparison is made to prior from 09/05/2024. The heart size is normal. No scarring in the right upper lobe. Left lung clear. No pleural effusion or pneumothorax. Electronically signed by: Kvng Murdock M.D. Result Afia Donohue MD IMG XR PROCEDURES Final Result * (ABNORMAL) Troponin I high-sensitivity (12/25/2024 9:02 AM CDT) Pathologist [facility] Trop I hs 34(H) <=17 ng/L Comment: Interpretive Data For further hscTnI resources including the diagnostic algorithm and an aid in interpretation, copy and paste this link: [email or web address].testcatalog.org/show/[email or web address] Current Interpretive Data last revised 2019. Blood 12/25/2024 9:02 AM CDT 12/25/2024 10:57 AM CDT us Kelly Donohue MD LAB BLOOD ORDERABLES Final Resul t Performing Organization Address City/[facility] Co de Phone Number [facility] [place] [address] * Anti-double stranded DNA abs (12/25/2024 9:02 AM CDT) [facility] dsDNA Ab <1.0 <=4.0 IUnits/mL Comment: Interpretive Data Negative: < or = 4 IUnits/mL Indeterminate: 5 - 9 IUnits/mL Positive: > or = 10 IUnits/mL Current interpretive data was last revised on 2016. Blood 12/25/2024 9:02 AM CDT 12/25/2024 10:57 AM CDT Result Afia Donohue MD LAB BLOOD ORDERABLES Final Resul t Performing Organization Address City/[facility] Co de Phone Number [facility] Department [place] [address] * C4 complement (12/25/2024 9:02 AM CDT) Complement C4 22.9 10.0 - 40.0 mg/dL Blood 12/25/2024 9:02 AM CDT 12/25/2024 10:57 AM CDT Kelly Donohue MD LAB BLOOD ORDERABLES Final Resul t [facility] [place] [address] * Urinalysis reflex to microscopic and culture Urine, clean voided (12/25/2024 9:02 AM CDT) Color, ur Straw Yellow Clarity, ur Clear Clear [facility] Specific gravity, ur 1.011 1.003 - 1.030 [facility] pH, urine 6.0 [facility] Comment: Interpretive Data U rine pH is affected by diet, medications, systemic acid-base disturbances, and renal tubular function. pH may affect urinary stone formation. For example, urine pH below 6.0 may help reduce the tendency for calcium phosphate stones and pH greater than 6.0 may reduce the tendency for uric acid stone formation. Source: [facility] Current Interpretive Data was last revised on 2017 Protein, ur ql Negative Negative [facility] Glucose, ur ql Negative Negative [facility] Ketones, ur Negative Negative [facility] Bilirubin, ur Negative Negative [facility] Blood, ur Negative Negative [facility] Urobilinogen, ur <2.0 <2.0 mg/dL [facility] Nitrite, ur Negative Negative [facility] Leukocyte esterase, ur Negative Negative [facility] UA reflex comment Reflex conditions for microscopic UA and culture not met. [facility] Urine, clean voided 12/25/2024 9:02 AM CDT 12/25/2024 10:56 AM CDT Kelly Donohue MD LAB MICROBIOLOGY - GENERAL ORDER JAIRO Final Result [facility] [place] [address] * (ABNORMAL) CBC with auto differential (12/25/2024 9:02 AM CDT) White Blood Count 16.2(H) 3.6 - 11.2 K/uL [facility] RBC 4.33 3.63 - 4.92 M/uL [facility] Hemoglobin 11.5(L) 11.9 - 15.5 g/dL [facility] Hematocrit 36.5 36.1 - 44.3 % [facility] MCV 84.4 80.0 - 97.6 fL [facility] MCH 26.6(L) 26.7 - 33.7 pg [facility] MCHC 31.6(L) 32.7 - 35.5 g/dL [facility] RBC Dist Width 14.9 12.3 - 17.0 % [facility] Platelet Count 273 140 - 440 K/uL [facility] MPV 9.2 6.8 - 10.4 fL [facility] Neutrophils % 64.6 38.7 - 74.5 % [facility] Lymphocyte % 24.8 20.0 - 54.3 % [facility] Monocytes % 5.5 4.3 - 13.5 % [facility] Eosinophils % 4.5 0.0 - 6.0 % [facility] Basophil % 0.6 0.0 - 3.0 % [facility] Absolute Neutrophil 10.5(H) 1.8 - 6.6 K/uL [facility] Absolute Lymphocyte 4.0(H) 0.8 - 3.3 K/uL [facility] Absolute Monocyte 0.9 0.2 - 1.2 K/uL [facility] Absolute Eosinophil 0.7(H) 0.0 - 0.5 K/uL [facility] Absolute Basophil 0.1 0.0 - 0.2 K/uL [facility] Nucleated RBC % 0.1 0.0 - 0.4 /100 WBC [facility] Blood 12/25/2024 9:02 AM CDT 12/25/2024 9:28 AM CDT us Kelly Donohue MD LAB BLOOD ORDERABLES Final Resul t Performing Organization Address City/[facility] Co de Phone Number [facility] * Protein / creatinine ratio, urine, random (12/25/2024 9:02 AM CDT) Protein, ur, quant <5.0 mg/dL Comment: Interpretive Data No reference range established. Current interpretive data was last revised 2018. Creatinine Ur 35.1 mg/dL [facility] Comment: Interpretive Data No reference range established. Current interpretive data was last revised 2018. Protein/creatinin e ratio <142.5 0.0 - 180.0 mg/g CR [facility] Urine 12/25/2024 9:02 AM CDT 12/25/2024 10:57 AM CDT us Kelly Donohue MD LAB URINE ORDERABLES Final Resul t Performing Organization Address [facility] Co de Phone Number [facility] [place] [address] * Erythrocyte sedimentation rate (12/25/2024 9:02 AM CDT) Erythrocyte Sedimentation Rate 23 <30 mm/hr [facility] Blood 12/25/2024 9:02 AM CDT 12/25/2024 9:28 AM CDT us Kelly Donohue MD LAB BLOOD ORDERABLES Final Resul t Performing Organization Address City/[facility] Co de Phone Number [facility] * C3 complement (12/25/2024 9:02 AM CDT) Complement C3 129.0 90.0 - 180.0 mg/dL Blood 12/25/2024 9:02 AM CDT 12/25/2024 10:57 AM CDT us Kelly Donohue MD LAB BLOOD ORDERABLES Final Resul t RISHABH REYNOLDS [facility] [place] [address] * (ABNORMAL) CRP (acute phase) (12/25/2024 9:02 AM CDT) C-Reactive Protein, Acute 7.7(H) <5.0 mg/L [facility] Blood 12/25/2024 9:02 AM CDT 12/25/2024 9:28 AM CDT Kelly Donohue MD LAB BLOOD ORDERABLES Final Resul t [facility] * (ABNORMAL) Comprehensive metabolic panel (12/25/2024 9:02 AM CDT) Total Protein 7.5 6.1 - 8.4 g/dL [facility] Albumin 4.3 3.5 - 5.2 g/dL [facility] Calcium 9.8 8.6 - 10.3 mg/dL [facility] BUN 26(H) 7 - 23 mg/dL [facility] Total Bilirubin <0.15(L) 0.20 - 1.40 mg/dL [facility] Comment:Repeated and Verifie d Alk Phos, Total 112 35 - 129 IU/L [facility] AST (SGOT) 21 11 - 47 IU/L [facility] ALT (SGPT) 19 6 - 53 IU/L [facility] Creatinine 1.23(H) 0.60 - 1.10 mg/dL [facility] Sodium 138 135 - 145 mmol/L [facility] Potassium 4.4 3.3 - 5.1 mmol/L [facility] Chloride 99 95 - 107 mmol/L [facility] CO2 Content 27 21 - 29 mmol/L [facility] Glucose 77 64 - 99 mg/dL [facility] Comment: NONFASTING GLUCOSE RANGE = 64-199 mg/dL FASTING GLUCOSE 64 - 99 = NORMAL FASTING GLUCOSE 100 - 125 = IMPAIRED FASTING GLUCOSE FASTING GLUCOSE >=126 = PROVISIONAL DIAGNOSIS OF DIABETES eGFR 50.0(L) >60.0 mL/min/1.7 3 m2 [facility] Blood 12/25/2024 9:02 AM CDT 12/25/2024 9:28 AM CDT us Kelly Donohue MD LAB BLOOD ORDERABLES Final Resul t Performing Organization Address City/[facility] Co de Phone Number [facility] * SCAN - RADIOLOGY/IMAGING (12/19/2024) Anatomical Region Laterality Modality Other us Mlacolm Phelps MD Final Result * Vitamin D 25 hydroxy (12/17/2024 3:45 PM CDT) Vitamin D 25-OH 53.0 30.0 - 80.0 ng/mL Blood 12/17/2024 3:45 PM CDT 12/17/2024 6:03 PM CDT Elvia Krueger NP LAB BLOOD ORDERABLES Karla l Result Performing Organization Address [facility] Co de Phone Number [id number] [place] [address] * (ABNORMAL) PTH (12/17/2024 3:45 PM CDT) PTH 76(H) 15 - 65 pg/mL Blood 12/17/2024 3:45 PM CDT 12/17/2024 6:05 PM CDT Elvia Krueger BASEBALL COACH LAB BLOOD ORDERABLES Karla l Result Performing Organization Address [facility] Co de Phone Number [id number] [place] [address] * Imaging Lumbar/Caudal Epidural Steroid INJ ([id number]) (11/11/2024 12:16 PM CDT) Narrative [facility] - 11/11/2024 12:16 PM CDT The images from this study are not interpreted by Radiology. Please refer to the physician's procedure / OR operative note. us Reginald RANDALL PAIN MGMT PROCEDU RES Final Result [facility] * SCREENING MAMMOGRAM BILATERAL W TEVIN (02/25/2024 2:49 PM SWEEP PRESS OPERATOR) Anatomical Region Laterality Modality Breast Bilateral Mammography Impressions 02/25/2024 4:35 PM SWEEP PRESS OPERATOR BI-RADS ATLAS category (overall): 1 - Negative There is no mammographic evidence of malignancy. A 1 year screening mammogram is recommended. The patient has been or will be contacted. We recommend annual screening mammography for women at average risk of breast cancer beginning at age 40, based on guidelines of the [employer] (ACR Practice Parameter for the Performance of Screening and Diagnostic Mammography) and [employer]. For women with and elevated risk of breast cancer, please refer to the ACR Practice Parameter for specific screening recommendations. The patient will be entered into a reminder system with a target due date of 1 year for her next screening exam. Narrative 02/25/2024 4:35 PM SWEEP PRESS OPERATOR SCREENING MAMMOGRAM BILATERAL W TEVIN: 02/25/24 The study was acquired using full field digital technology and interpreted from soft copy. 2D digital mammographic views, as well as 3D digital tomosynthesis were performed in the CC and MLO projections. CLINICAL: Screening mammogram, encounter for. No relevant medical history has been documented for this patient. No known family history of breast cancer. COMPARISONS: 11/23/2022 Screening Mammogram Bilateral W Tevin 11/12/2014 Breast Imaging Diagnostic Outside Reference 10/05/2014 Breast Imaging Screening Outside Reference BREAST TISSUE: The breasts are extremely dense, which lowers the sensitivity of mammography. FINDINGS: No suspicious masses, suspicious calcifications, or other suspicious findings are seen within either breast. There has been no suspicious change. us Malcolm RANDALL MAMMO PROCEDURES Final Resul t * High Risk HPV DNA Detection with Genotyping (Molecular component) (06/18/2023 11:33 AM SWEEP PRESS OPERATOR) HPV HR 16 Not Detected Not Detected RISHABH VELASQUEZ Comment:Testing performed by : [facility], [address] [place]., [address] HPV HR 18 Not Detected Not Detected RISHABH VELASQUEZ Comment:Testing performed by : [facility], [address] [place]., [address] HPV HR Non 16/18 Not Detected Not Detected RISHABH Comment: Interpretive Data Nucleic acid amplification for detection of high-risk Human Papilloma virus (HPV) is performed by the Yanira Brittany 6800 HPV test. This assay specifically detects HPV-16 and HPV-18 genotypes. The following HPV genotypes are detected as high-risk HPV: HPV-31, 33, 35, ,39, 45, 51, 52, 56, 58, 59, 66, and 68. This assay has been approved by the [place] Food and Drug Administration for detection of HPV in cervical specimens collected by a physician using an endocervical brush/spatula or cervical broom and placed in the ThinPrep Pap Test PreservCyt collection containers. The performance characteristics of this test have been verified by the [facility] Molecular Infectious Disease laboratory. Correlate with separately reported cytology results, as applicable. Interpretive data last revised 22 Testing performed by: [facility], [address] [facility], [address] Endocervical 06/18/2023 11:3 3 AM SWEEP PRESS OPERATOR 06/19/2023 8:29 AM SWEEP PRESS OPERATOR Narrative RISHABH - 06/20/2023 5:06 AM SWEEP PRESS OPERATOR Clinical history and diagnosis->wwe Number of vials->1 Testing type->Screening Last menstrual period (date if known)->postmenopausal Bel Weston CNM LAB BODY FLUIDS AND STOOLS ORDERABLES Final Result RISHABH [address] [facility] Department [place] [address] * Hepatitis panel, acute Blood (06/18/2023 11:19 AM SWEEP PRESS OPERATOR) Hep A IgM Nonreactive Nonreactive [facility] Comment: Interpretive Data: If Hep A IgM Ab is reported as Equivocal, a new sample should be drawn in two weeks for testing. Current interpretive data was last revised on 19. Hep B core IgM Nonreactive Nonreactive [facility] Comment: Interpretive Data If HepB Core IgM Ab is reported as Equivocal, a new sample should be drawn in two weeks for testing. Current interpretive data was last revised on 19. Hep C Ab Nonreactive Nonreactive [facility] Comment: Antibodies to HCV not detected. Does NOT exclude the possibility of recent exposure to HCV. Current interpretive data was last revised on 21 Interpretive Data Nonreactive: Antibodies to HCV not detected. Does NOT exclude the possibility of recent exposure to HCV. Equivocal: Equivocal for HCV antibodies. Supplemental molecular testing will be automatically performed to determine infection status in accordance with current CDC screening recommendations. Reactive: Positive for HCV antibodies. This may represent current or past HCV infection. Supplemental molecular testing will be automatically performed to determine current infection status in accordance with current CDC screening recommendations. Interpretive data was last revised on 2019. HepBsAg Nonreactive Nonreactive [facility] Blood 06/18/2023 11:1 9 AM SWEEP PRESS OPERATOR 06/18/2023 2:33 PM SWEEP PRESS OPERATOR Bel Weston CNM LAB MICROBIOLOGY - GENERAL ORDERABLES Final Result RISHABH [address] [facility] Department [place] [address] * Colonoscopy (12/27/2020) Anatomical Region Laterality Modality Other us Historical Provider ENDOSCOPY PROCEDURES Karla l Result from Last 3 Months or Most Recently Relevant to Health Maintenance Insurance [facility] Advance Directives For more information, please contact: [phone] Documents on File Type Date Recorded Patient Vp Sales Expl anation ADVANCE DIRECTIVE 09/07/2024 10:18 AM Aparna mastersoner of Bag Machine Adjuster-Medical * LIMITED - No CPR (Latest Code Status on File) Date Activated Date Inactivated Comments 09/05/2024 11:54 PM 09/09/2024 4:28 PM Question Answer Comments Provide aggressive medical m anagement before a full cardiopulmonary arrest occurs. Use antibiotics, IV Fluids, and medical treatment unless specifically selected below: No intubation * Full Code Date Activated Date Inactivated Comments 09/11/2023 2:28 PM 09/15/2023 5:01 PM * Full Code Date Activated Date Inactivated Comments 06/02/2022 2:33 PM 06/18/2022 9:21 PM Healthcare Agents on File Name Relationship Healthcare Agent Relationshi p Communication Aparna Tripathi Daughter Health Care Agent Care Teams Foot Orthopedist Relationship Specialty Start Date End Date Malcolm Phelps MD [address] [facility] [address] [place] [address] PCP - General Family Medicine 10/09/22 Kellie Barry MD [facility] [address] Consulting Physician Pulmonary Disease 09/15/23 Kelly Donohue MD [address] [address] Fellow Rheumatology 02/03/24
--- OUTSIDE RECORDS SUMMARY | 2024-12-29 16:25 | XMS_ITS | Clinical Summary ---
Author Organization [facility] Address [address] [place] [id number] Phone Care Team Providers Care Senior Lead Java Developer Name Role Phone Malcolm Phelps MD Primary Care Provider Unavailab le Allergies No known active allergies Medications atorvastatin (LIPITOR) 20 MG tablet Take 20 mg by mouth 1 (one) time each day Active hydroxychloroqui ne (PLAQUENIL) 200 MG tablet Take 200 mg by mouth 1 (one) time each day Active mirtazapine (REMERON) 30 MG tablet Take 30 mg by mouth every night Active acyclovir (ZOVIRAX) 800 MG tablet Take 800 mg by mouth 1 (one) time each day Active allopurinol (ZYLOPRIM) 100 MG tablet Take 200 mg by mouth 1 (one) time each day Active famotidine (PEPCID) 40 MG tablet Take 40 mg by mouth 2 (two) times a day Active sertraline (ZOLOFT) 100 MG tablet Take 150 mg by mouth 1 (one) time each day Active prazosin (MINIPRESS) 2 MG capsule Take 4 mg by mouth 1 (one) time each day if needed Active gabapentin (NEURONTIN) 600 MG tablet Take 900 mg by mouth 3 (three) times a day Active atenolol-chlorth alidone (TENORETIC) 100-25 MG per tablet Take 1 tablet by mouth 1 (one) time each day Active Active Problems Problem Noted Date Diagnosed Date Right flank pain 03/05/2023 Essential hypertension 10/14/2019 Gout associated problem 10/14/2019 Chronic kidney disease, stage 4 (severe) 016 Systemic lupus erythematosus 11/03/2010 Resolved Problems Problem Noted Date Diagnosed Date Resolved Date Urinary tract infectious disease 06/24/2022 03/05/2023 Abnormal renal function 10/14/2019 07/2 04/2020 Chronic kidney disease stage 3 10/21/2018 11/16/2019 Vitamin D deficiency 10/21/2018 020 Lupus erythematosus 10/21/2018 11/16/19 20 Hyperlipidemia 10/21/2018 06/02/2020 Trochanteric bursitis 01/04/20172019 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 11/16/2019 Hyperlipidemia 11/04/2015 11/16/2019 Fibromyalgia 04/17/2013 11/16/2019 Immunizations Immunization Administration Dates Next Due Influenza, Unspecified 01/12/2019 Social History Tobacco Use Types Packs/Day Years Used Date Smoking Tobacco: Every Day Smokeless Tobacco: Never Tobacco Cessation:Ready to Q uit: Not Asked; Counseling Given: Not Answered Alcohol Use Standard Drinks/Week Comments Yes 0 (1 standard drink = 0.6 oz pur e alcohol) occasionally Comments Unknown Sex and Gender Information Value Date Recorded Sex Assigned at Not on file Legal Sex Female 10:46 AM MDT Gender Identity Not on file Sexual Orientation Not on file Last Filed Vital Signs Vital Sign Reading Time Taken Comments Blood Pressure 99/62 08/08/2023 2:08 PM CDT Pulse 88 08/08/2023 2:08 PM CDT Temperature - - Respiratory Rate - - Oxygen Saturation - - Inhaled Oxygen Concentration - - Weight 48.5 kg (107 lb) 08/08/2023 2:08 PM CDT Height 160 cm (5' 3) 08/08/2023 2:08 PM CDT Body Mass Index 18.95 08/08/2023 2:08 PM CDT Plan of Treatment Upcoming Encounters Date Type Department Care Team ([facility] st Contact Info) Description 01/07/2025 10:40 AM CDT Office Visit [facility] [address] [facility] [address] [place] [address] Bharti Mcgee NP [address] [address] Health Maintenance Due Date Last Done Comments Pneumococcal PPSV23 Highest Risk Adult (1 of 3 - PCV13) 12/11/1982 COVID-19 Vaccine (3 - 2024- season) 2024, 07/18/2020 Influenza Vaccine (#1) 2024 01/12/2019, 2018 Insurance [facility] Care Teams Senior Lead Java Developer Relationship Specialty Start Date End Date Malcolm Phelps MD [address] [facility] [address] [place] [address] [place] [phone] PCP - General Family Medicine 02/10/24
== END 2024-12-29 15:00 | disposition home or self-care (01) ==
PROVIDERS: PCP Family Medicine; Visit Provider Nurse Practitioner Family
DX: D63.1 Anemia in chronic kidney disease (principal); N18.32 Chronic kidney disease, stage 3b
CPT/HCPCS: 36415; 80069; 82043; 82728; 83540; 83550; 83970; 85025

== ENCOUNTER 2025-04-14 08:53 | Outpatient (CLI) | payer OTHER, SELFPAY ==
--- NOTE | ~2025-04-14 | DEXA_ITS ---
Bone Density Report Name: ALMA MAHER Age: 59 Sex: Female Ethnicity: White Date of : 1965 Indication: postmenopausal; screening for osteoporosis; prior fracture; Referring Provider: ELVIN, ISAIAH Romo Study: Bone densitometry was performed. Exam Date: April 14, 2025 Accession number: [id number] Bone Density: Region BMD T-score Z-score Classification AP Spine(L1, L2) 0.663 -2.9 -1.5 Osteoporosis Femoral Neck (Left) 0.618 -2.1 -0.7 Osteopenia Total Hip (Left) 0.719 -1.8 -0.8 Osteopenia Femoral Neck (Right) 0.578 -2.4 -1.1 Osteopenia Total Hip (Right) 0.728 -1.8 -0.7 Osteopenia Total Hip Mean 0.724 -1.8 -0.8 Osteopenia World Health Organization criteria for BMD impression classify patients as: Normal (T-score at or above -1.0), Osteopenia (T-score between -1.0 and -2.5), or Osteoporosis (T-score at or below -2.5). 10-year Fracture Risk: FRAX not reported because: Some T-score for Spine Total or Hip Total or Femoral Neck at or below -2.5 Treated for osteoporosis Clinical Information Provided by Patient: Has had a low trauma fracture Smokes Is being treated for osteoporosis Has used the following medications: Vitamin D Patient maximum height was 63 No regular weight bearing exercise Drinks caffeinated beverages Onset of menses at age 9 Number of children 4 Impression: The patient has established osteoporosis, based on the Total Spine T-score and the existence of a prior fracture. The patient has risk factors, including: smoking, previous fracture. Discussion: It is important to ask patients whether they are taking their medications and to encourage continued and appropriate compliance with their osteoporosis therapies to reduce fracture risk. It is also important to review their risk factors and encourage appropriate calcium and vitamin D intakes, exercise, fall prevention and other lifestyle measures. Follow-Up: Consider a repeat BMD and Vertebral Fracture Assessment (VFA) exam in 2 years or sooner if medically necessary, to reassess this patient's status. Reported by: CHRIS on 04/14/2025 9:42:00 AM. Reviewed, dictated and finalized at location A.
--- OUTSIDE RECORDS SUMMARY | 2025-04-14 08:57 | XMS_ITS | Clinical Summary ---
Author Organization [facility] Address [address] [place] [id number] Care Team Providers Care Oracle Software Engineer Name Role Phone Nany Zavaleta NP Primary [...] of 1 - PCV) 12/11/2013 COVID-19 Vaccine (4 - 2024-2 6 season) 2024 03/22/2021, 08/08/2020, 07/18/2020 Influenza Adult (#1) 2025 01/12/2019 RSV Immunization or 60+ Years (1 - 1-dose 75+ series) 12/11/2038 Zoster Vaccines Completed 11/08/2021, 09/04/2021 Hepatitis A Vaccines Aged Out No long er eligible based on patient's age to complete this topic Meningococcal B Vaccine Aged Out No l onger eligible based on patient's age to complete this topic Meningococcal Vaccine Aged Out No josé estelita eligible based on patient's age to complete this topic RSV Immunizations Under 20 Months Aged Out No longer eligible b ased on patient's age to complete this topic Insurance [employer] Care Teams Oracle Software Engineer Relationship Specialty Start Date End Date Nany Zavaleta NP PCP - General 02/17/16
--- OUTSIDE RECORDS SUMMARY | 2025-04-14 08:57 | XMS_ITS | Clinical Summary ---
Author Organization [facility] Address [address] [place] [address] Care Team Providers Care Systems Support Specialist Name Role Phone Malcolm Phelps MD Primary Care Provider Kellie Barry MD Unavailable [phone] Kelly Donohue MD Unavailable Allergies No known active allergies Medications oxyBUTYnin XL (DITROPAN-XL) 10 mg 24 hr tabletIndications :Nocturnal enuresis Take 1 tablet (10 mg total) by mouth daily 90 tablet 3 024 Active hydroxychloroquin e (PLAQUENIL) 200 mg tabletIndications :Systemic lupus erythematosus, unspecified SLE type, unspecified organ involvement status (HCC) Take 1 tablet (200 mg total) by mouth daily 180 tablet 1 025 Active vortioxetine (Trintellix) 10 mg tablet Take 1 tablet (10 mg total) by mouth daily Active omeprazole (PriLOSEC) 40 mg capsuleIndication s:Gastroesophagea l reflux disease with esophagitis, unspecified whether hemorrhage Take 1 capsule (40 mg total) by mouth daily 90 capsule 1 025 Active docusate sodium (COLACE) 100 mg capsuleIndication s:constipation Take 1 capsule (100 mg total) by mouth daily 30 capsule 025 Active varenicline tartrate (CHANTIX) 1 mg tabletIndications :Tobacco use disorder TAKE 1 TABLET BY MOUTH 2 TIMES A DAY TAKE WITH FULL GLASS OF WATER. 180 tablet 1 Active blood pressure test kit-medium kitIndications:Es sential hypertension 1 each machine biller before breakfast 1 kit Active lisinopriL (PRINIVIL,ZESTRIL ) 20 mg tabletIndications :Essential hypertension Take 1 tablet (20 mg total) by mouth daily 90 tablet 1 2025 Active gabapentin (NEURONTIN) 600 mg tabletIndications :Fibromyalgia TAKE 1.5 TABLETS BY MOUTH 3 TIMES DAILY 270 tablet Active Additional Information Patient not taking.Reported on 04/09/2025 linaCLOtide (Linzess) 290 mcg capsuleIndication s:Chronic idiopathic constipation Take 1 capsule (290 mcg total) by mouth daily 90 capsule 3 2025 Active denosumab (Prolia) 60 mg/mL syringeIndication s:postmenopausal osteoporosis and high fracture risk Inject 1 mL (60 mg total) under the skin once for 1 dose 1 mL Active traMADoL (ULTRAM) 50 mg tabletIndications :Systemic lupus erythematosus, unspecified SLE type, unspecified organ involvement status (HCC) Take 1 tablet (50 mg total) by mouth every 8 (eight) hours as needed for pain 90 tablet 5 2025 Active triamcinolone (KENALOG) 0.1 % cream APPLY TO AFFECTED AREA TWICE A DAY 30 g 1 Active atorvastatin (LIPITOR) 20 mg tabletIndications :Mixed hyperlipidemia TAKE 1 TABLET BY MOUTH EVERY DAY 90 tablet 1 Active lidocaine (LIDODERM) 5 % APPLY 1 PATCH TOPICALLY DAILY. 30 patch 1 Active furosemide (LASIX) 40 mg tablet TAKE 1 TABLET BY MOUTH EVERY DAY 90 tablet 1 Active hydrOXYzine (ATARAX) 25 mg tabletIndications :Eczema, unspecified type TAKE 1 TABLET (25 MG TOTAL) BY MOUTH EVERY 4 (FOUR) HOURS NEEDED FOR ITCHING 100 tablet Active acyclovir (ZOVIRAX) 800 mg tabletIndications :Herpes Take 1 tablet (800 mg total) by mouth daily 30 tablet 12/18/2 025 Active guanFACINE (TENEX) 1 mg tablet Take 1 tablet (1 mg total) by mouth nightly as needed 025 Active methocarbamoL (ROBAXIN) 500 mg tablet Take 1 tablet (500 mg total) by mouth 3 (three) times a day as needed for muscle spasms 90 tablet 2 025 Active hydrOXYzine (ATARAX) 25 mg tabletIndications :Eczema, unspecified type Take 1 tablet (25 mg total) by mouth every 4 (four) hours as needed for itching 100 tablet 025 2024 Discontinued methocarbamoL (ROBAXIN) 500 mg tablet TAKE 1 TABLET BY MOUTH 3 TIMES A DAY NEEDED FOR MUSCLE SPASMS. 90 tablet 1 025 2024 Discontinued(R eorder) acyclovir (ZOVIRAX) 800 mg tabletIndications :Herpes TAKE 1 TABLET BY MOUTH DAILY. 30 tablet 025 2024 Discontinued(R eorder) Hospital, Clinic, or Other Facility Administered Medication Ordered Dose Route Frequency Start Date End Date Status denosumab (PROLIA) subcutaneous syringe 60 mgIndications:Osteoporosis of lumbar spine 60 mg subQ Once 03/26/2025 03/26/2025 Ended Active Problems Problem Noted Date Diagnosed Date Sebaceous cyst 02/03/2025 Vaginal discharge 02/03/2025 CKD (chronic kidney disease) 02/03/2025 Tension headache 02/03/2025 Overview (02/03/2025): Chronic. COntrolled. OTC NSAID Eczema 02/03/2025 Chronic idiopathic constipation 02/03/2025 Overview (02/03/2025): s/p recent partial SBO Hospitalization. Increse Linzess to 145mcg Anemia in chronic kidney disease 01/07/2025 Lumbar radiculopathy 11/11/2024 Sepsis 09/06/2024 Overview (09/06/2024): Associated with colitis etiology WBC 26239, lactic acid 3.4, heart rate 103, respiratory rate 22 Repeat lactate level 3.2 IV fluid IV antibiotic with ceftriaxone and metronidazole Pending follow-up of blood cultures x2 Assessment & Plan (09/06/2024 2:02 AM CDT): Associated with colitis etiology WBC 76164, lactic acid 3.4, heart rate 103, respiratory [...] last year. Ordered at this time for [facility]. Phone # given for her to reach out to set up DEXA. Follow a Bone Healthy Diet and lifestyle: -Consume Calcium and vit D rich foods -Calcium and vitamin D3 supplementation daily: Calcium 8546-4422 mg total daily dose, take with food. [...] injection but never rec'd. Sent script to [facility] Specialty pharmacy. Aware to call office (# given) once rec'd & to have nurse visit scheduled (at [facility] office). Will plan NOV 7 mos from now when next injection will be due). Reviewed SE/scheduling. Will update DEXA at [facility] in [place].Verified that she uses [employer]. Aware to check results/results letter in [employer]. Will contact by phone if needed. Follow a Bone Healthy Diet and lifestyle: -Consume Calcium and vit D rich foods -Calcium and vitamin D3 supplementation daily: Calcium 4824-1116 mg total daily dose, take with food. [...] 05/15/2023 Assessment & Plan (05/15/2023 11:40 AM SOCIAL WORK NURSE): On HCQ (7.18 mg/kg/day) for SLE > 10 years Normal OCT and HVF 10-2 OU today RTC 6 months for OCT and HVF 10-2 Combined forms of age-related cataract of both e yes 05/15/2023 Assessment & Plan (05/15/2023 11:37 AM SOCIAL WORK NURSE): No visual significance OU, monitor Tobacco use disorder 04/05/2023 Right flank pain 03/05/2023 Necrotizing pneumonia 12/05/2022 Personal history of nicotine dependence 12/06/19 Hyperparathyroidism , secondary, non-renal 08/02 Assessment & Plan (12/17/2024 3:37 PM CDT): Chronic problem. She was on ergocalciferol 50,000IU every other week but has missed 2+ months. Again discussed that low vitamin D levels can lead to overproduction of parathyroid hormone (which controls calcium). Can cause osteopenia/osteoporosis. Will update labs today. Verified that she uses [employer]. Aware to check results/results letter in [employer]. Will contact by phone if needed. Assessment & Plan (01/13/2024 2:37 PM CDT): Chronic problem. Will update labs today. Verified that she uses [employer]. Aware to check results/results letter in [employer]. Will contact by phone if needed. Again [...] Plan (08/02/2022 4:43 PM CDT): Start ergocalciferol 59442 IU use weekly Recheck vitamin-D levels in 2 months Stage 3b chronic kidney disease 10/21/2018 Trochanteric bursitis 01/04/2017 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 Chronic renal insufficiency, stage III (moderate ) 11/04/2015 Mixed hyperlipidemia 11/04/2015 Meibomian gland dysfunction (MGD) 06/22/2015 Fibromyalgia 04/17/2013 Systemic lupus erythematosus 11/03/2010 Resolved Problems Problem Noted Date Diagnosed Date Resolved Date CKD (chronic kidney disease) stage 4, GFR 15-29 ml/min 01/09/2023 02/03/2025 Lupus erythematosus 10/21/2018 07/28/19 Orbital fracture, closed, initial encounter 03/25/2018 02/03/2025 Chronic kidney disease, stage 4 (severe) 11/04/2015 02/03/2025 Encounters Date Type Department Care Team Description 04/09/2025 7:51 AM SOCIAL WORK NURSE - 04/09/2025 11:59 PM SOCIAL WORK NURSE Hospital Encounter [facility] at [facility] [address] [place] [phone] Reginald Palomino MD Sacroiliitis (Primary Dx) Discharge Disposition: Discharge to home or self care 03/24/2025 Telephone [facility] Diabetes and Endocrinology [address] [place] [phone] Elvia Krueger NP Med Refill ([employer]) 03/17/2025 Telephone [facility] Diabetes and Endocrinology [address] [place] [phone] Opal Evangelista MA Approval Letter ([facility]) 03/16/2025 Telephone [facility] Medicine Scheduling [address] [place] [phone] Opal Navarro 03/15/2025 Telephone [facility] Diabetes and Endocrinology [address] [place] [phone] Elvia Krueger NP Prior Auth ([employer]) 03/12/2025 9:30 AM SOCIAL WORK NURSE Office Visit [facility] [address] [place] [address] [address], [address] [place] [address] Srikanth Peter MD Lumbar radiculopathy (Primary Dx); Low back pain, non-specific 03/03/2025 Telephone [facility] Medicine Pulmonary [address] [facility] 8th [place] [address] [place] [address] Kandice Campbell RN 03/02/2025 Telephone [facility] Medicine Pulmonary [address] [facility] 8th [place] [address] [place] [address] Ann Bassett CMA 02/10/2025 Telephone [facility] Diabetes and Endocrinology [address] [place] [phone] Elvia Krueger NP 02/09/2025 8:55 AM CDT Lab [facility] Advanced [facility] ([facility]) [address] [place] [phone] Mixed hyperlipidemia; Chest pain, unspecified type; Systemic lupus erythematosus, unspecified SLE type, unspecified organ involvement status (HCC); Arthralgia, unspecified joint 02/09/2025 7:45 AM CDT Office Visit [facility] Medicine Rheumatology [address] [place] [address] 5th [place] [address] [place] [address] Kelly Donohue MD Chest pain, unspecified type (Primary Dx) 02/04/2025 7:22 AM CDT - 02/04/2025 11:59 PM CDT Hospital Encounter [facility] Center at [facility] Advanced Medicine [address] [place] [address] [address] [place] [address] Reginald Palomino MD Sacroiliitis Discharge Disposition: Discharge to home or self care 02/03/2025 12:30 PM CDT Office Visit [facility] Family Medicine at [address] [place] [address] Malcolm Phelps MD Essential hypertension (Primary Dx); Encounter for screening mammogram for malignant neoplasm of breast; Tension headache; Stage 3a chronic kidney disease (HCC); Moderate episode of recurrent major depressive disorder (HCC); Fibromyalgia; Eczema, unspecified type; Chronic idiopathic constipation 02/01/2025 Orders Only [facility] Family Medicine at [address] [place] [address] Malcolm Phelps MD Mixed hyperlipidemia (Primary Dx) 01/28/2025 Telephone [facility] at [facility] Advanced Medicine [address] [place] [address] [address] [place] [address] Reginald Palomino MD [facility] Preprocedure from Last 3 Months Immunizations Immunization Administration [...] pain Neck pain SBO (small bowel obstruction) ([facility]) Family History * Patient is adopted Medical History Relation Name Comments No Known Problems Daughter 1 No Known Problems Daughter 2 No Known Problems Son 1 No Known Problems Son 2 Relation Name Status Comments Daughter 1 Alive Daughter 2 Alive Son 1 Alive Son 2 Alive Social History Tobacco Use Types Packs/Day Years Used Date Smoking Tobacco: Some Days Cigarettes 0.2 30.4 Started: 12/29/2000 Smokeless Tobacco: Never Tobacco Cessation:Ready to Q uit: Yes; Counseling Given: Yes Alcohol Use Standard Drinks/Week Comments Not Currently 0 (1 standard drink = 0.6 oz pur e alcohol) Sometimes [facility] Utilities Answer Date Recorded In the past [...] often do you attend chur ch or scientologist services? Never 09/07/2024 Do you belong to any clubs o r organizations such as gnosticist groups, unions, fraternal or athletic groups, or school groups? No 09/07/2024 How often do you attend meet ings of the clubs or organizations you belong to? Never 09/07/2024 Are you , , di vorced, , never , or living with a partner? 09/07/2024 Overall Financial Resource Strain (CARDIA) Answe r [...] any time in the past 12 m [facility], were you homeless or living in a usp (including now)? No 09/07/2024 AUDIT-C Answer Date Recorded Q1: How often do you have a drink containing alcohol? Never 04/09/2025 Q2: How many drinks containi ng alcohol do you have on a typical day when you are drinking? Patient does not drink Q3: How often do you have si x or more drinks on one occasion? Never 04/09/2025 Personal Safety Answer Date Recorded Have you ever been in or are you currently in a harmful physical or emotional relationship or is someone making you feel afraid or unsafe? Denies 09/05/2024 Comments No Sex and Gender Information Value Date Recorded Sex Assigned at Not on file Legal Sex Female 2:56 AM SOCIAL WORK NURSE Gender Identity Female 12/26/2020 11:37 PM CDT Sexual Orientation Straight 12/26/2020 11 :37 PM CDT Obstetrics History Para Term AB IAB SAB Ectopic Multiple Livin g Live Births 4 4 4 Date Outcome GA Total Labor Labor/2nd/3rd Weight Sex Type Anes PTL Irma A1 A5 Name Clin Term Term Term Term Last Filed Vital Signs Vital Sign Reading Time Taken Comments Blood Pressure 144/78 04/09/2025 8:12 AM SOCIAL WORK NURSE 93 Pulse 73 04/09/2025 8:12 AM SOCIAL WORK NURSE Temperature 36.3 C (97.3 F) 04/09/2025 8:12 AM SOCIAL WORK NURSE Respiratory Rate 16 04/09/2025 8:12 AM SOCIAL WORK NURSE Oxygen Saturation 100% 04/09/2025 8:12 AM SOCIAL WORK NURSE ra Inhaled Oxygen Concentration - - Weight 50.8 kg (112 lb) 04/09/2025 8:12 AM SOCIAL WORK NURSE Height 160 cm (5' 3) 04/09/2025 8:12 AM SOCIAL WORK NURSE Body Mass Index 19.84 04/09/2025 8:12 AM SOCIAL WORK NURSE Plan of Treatment Health Maintenance Due Date Last Done Comments DTaP/Tdap/Td Vaccine (1 - Tdap) 12/11/1974 Hepatitis B Screening 12/11/1981 Cervical Cancer Screening 06/18/2024 06/18/2023, Covid-19 Vaccine ( season) 2024 03/22/2021, 08/08/2020, 07/18/2020 Breast Cancer Screening-Mammogram 02/24/2025 02/25/2024, 11/23/2022 Depression Screening 07/22/2025 07/22/2024, 07/22/2024, 07/05/2023, Additional history exists Regular Well Visit/Exam 18-64 07/22/2025 07/22/2024, 06/18/2023, 04/05/2023 Influenza Vaccine (#1) 2025 01/12/2019, 2018 Postponed from 12/21/2024 (Patient declined, but will receive in the future) Pneumococcal vaccine <65 (1 of 2 - PCV) 01/19/2026 Postponed from 12/11/1982 (Patient declined, but will receive in the future) Colon Cancer Screening-Colonoscopy 12/27/2030 12/27/2020 Colon Cancer Screening-CT Colonography Discontinued 12/27/2020 Colon Cancer Screening-DNA Stool Discontinued 12/27/2020 Colon Cancer Screening-FIT Discontinued 12/27/2020 Colon Cancer Screening-Sigmoidoscopy Discontinued 12/27/2020 Zoster Vaccine Completed 11/08/2021, 09/04/2021 Hepatitis C Screening Completed 06/18/2023, 023 Goals Goal Patient Goal Type Associated Problems Recent Progress Patient-Stated? Author CCM Chronic Pain Care Plan Chronic Care Management Improving( 8:34 AM SOCIAL WORK NURSE) No Elizabeth Wynne, RN Note: Problem: Chronic Pain Goals: 1. Minimize further functional decline 2. Maximize quality of life 3. Control pain Strategies: - Activity/exercise program recommendation - Conservative stepwise pain medicine strategy with multi-disciplinary approach - Recommend healthy lifestyle strategies and compensatory methods as needed Procedures Procedure Name Priority Date/Time Associated Diagnosis Comments EGFR Routine 02/09/2025 9:03 AM CDT Chest pain, unspecified type Systemic lupus erythematosus, unspecified SLE type, unspecified organ involvement status (HCC) Arthralgia, unspecified joint DIFFERENTIAL AUTO Routine 02/09/2025 9:0 3 AM CDT Chest pain, unspecified type Systemic lupus erythematosus, unspecified SLE type, unspecified organ involvement status (HCC) Arthralgia, unspecified joint TROPONIN I HIGH-SENSITIVITY Routine 02/09/2025 9:03 AM CDT Chest pain, unspecified type Systemic lupus erythematosus, unspecified SLE type, unspecified organ involvement status (HCC) Arthralgia, unspecified joint CBC WITH AUTO DIFFERENTIAL Routine 02/09/2025 9:03 AM CDT Chest pain, unspecified type Systemic lupus erythematosus, unspecified SLE type, unspecified organ involvement status (HCC) Arthralgia, unspecified joint COMPREHENSIVE METABOLIC PANEL Routine 02/09/2025 9:03 AM CDT Chest pain, unspecified type Systemic lupus erythematosus, unspecified SLE type, unspecified organ involvement status (HCC) Arthralgia, unspecified joint ERYTHROCYTE SEDIMENTATION RATE Routine 02/09/2025 9:03 AM CDT Chest pain, unspecified type Systemic lupus erythematosus, unspecified SLE type, unspecified organ involvement status (HCC) Arthralgia, unspecified joint CRP (ACUTE PHASE) Routine 02/09/2025 9:0 3 AM CDT Chest pain, unspecified type Systemic lupus erythematosus, unspecified SLE type, unspecified organ involvement status (HCC) Arthralgia, unspecified joint PAIN MGMT IMAGING SI JOINT BILATERAL ARTHROGRPHY Schedule Routine, Read Routine (OP Routine) 02/04/2025 9:37 AM CDT Sacroiliitis SCREENING MAMMOGRAM BILATERAL W TEVIN Schedule Routine, Read Routine (OP Routine) 02/25/2024 2:49 PM SOCIAL WORK NURSE Screening mammogram, encounter for HIGH RISK HPV DNA DETECTION WITH GENOTYPING Routine 06/18/2023 11:33 AM SOCIAL WORK NURSE Screening for cervical cancer HEPATITIS PANEL, ACUTE Routine 06/18/2023 11:19 AM SOCIAL WORK NURSE Screening for STD (sexually transmitted disease) COLONOSCOPY Routine 12/27/2020 from Last 3 Months or Most Recently Relevant to Health Maintenance Results * (ABNORMAL) Troponin I high-sensitivity (02/09/2025 9:03 AM CDT) Trop I hs 23(H) <=17 ng/L Comment: Interpretive Data For further hscTnI resources including the diagnostic algorithm and an aid in interpretation, copy and paste this link: [email or web address].testcatalog.org/show/[email or web address] Current Interpretive Data last revised 2019. Blood 02/09/2025 9:03 AM CDT 02/09/2025 9:38 AM CDT us Kelly Donohue MD LAB BLOOD ORDERABLES Final Resul t [facility] Department [place] [address] * (ABNORMAL) eGFR (02/09/2025 9:03 AM CDT) eGFR 28(L) >=60 mL/min/1. 73 m2 Comment: Interpretive Data Reference Interval Normal >/= 90 mL/min/1.73m2 Mildly decreased* 60 - 89 mL/min/1.73m2 Mildly to moderately decreased 45 - 59 mL/min/1.73m2 Moderately to severely decreased 30 - 44 mL/min/1.73m2 Severely decreased 15 - 29 mL/min/1.73m2 Kidney Failure < 15 mL/min/1.73m2 *Relative to young adult level Estimated glomerular filtration rate is determined by the 2020 CKD-EPI equation recommended by the National Kid[employer] Foundation (A Unifying Approach to GFR Estimation: Recommendations of the NKF-ASK Task Force on Reassessing the Inclusion of Race in Diagnosing Kidney Disease, JASN 2020). The CKD-EPI equation should not be used for patients with unstable renal function and has not been validated in children and those over 70. Current interpretive data was last reviewed 2021. Blood 02/09/2025 9:03 AM CDT 02/09/2025 9:38 AM CDT Kelly Donohue MD LAB BLOOD ORDERABLES Final Resul t [facility] [place] [address] * (ABNORMAL) Differential, auto (02/09/2025 9:03 AM CDT) Neutrophil abs 8.26(H) 1.50 - 6.50 K/cumm Imm gran abs 0.07 0.00 - 0.10 K/cumm [facility] Lymphocyte abs 2.23 0.80 - 3.30 K/cumm [facility] Monocyte abs 0.68 0.20 - 0.80 K/cumm [facility] Eosinophil abs 0.27 0.00 - 0.50 K/cumm [facility] Basophil abs 0.03 0.00 - 0.10 K/cumm [facility] Neutrophil pct 71.6 % [facility] Comment: Interpretive Data Percent cell count reference ranges are not reported, since discordance with absolute values may lead to misinterpretation of CBC data. Current Interpretive Data was last revised on 2017. Imm gran pct 0.6 % [facility] Comment: Interpretive Data Percent cell count reference ranges are not reported, since discordance with absolute values may lead to misinterpretation of CBC data. Current Interpretive Data was last revised on 2017. Lymphocyte pct 19.3 % [facility] Comment: Interpretive Data Percent cell count reference ranges are not reported, since discordance with absolute values may lead to misinterpretation of CBC data. Current Interpretive Data was last revised on 2017. Monocyte pct 5.9 % [facility] Comment: Interpretive Data Percent cell count reference ranges are not reported, since discordance with absolute values may lead to misinterpretation of CBC data. Current Interpretive Data was last revised on 2017. Eosinophil pct 2.3 % [facility] Comment: Interpretive Data Percent cell count reference ranges are not reported, since discordance with absolute values may lead to misinterpretation of CBC data. Current Interpretive Data was last revised on 2017. Basophil pct 0.3 % [facility] Comment: Interpretive Data Percent cell count reference ranges are not reported, since discordance with absolute values may lead to misinterpretation of CBC data. Current Interpretive Data was last revised on 2017. Blood 02/09/2025 9:03 AM CDT 02/09/2025 9:37 AM CDT us Kelly Donohue MD LAB BLOOD ORDERABLES Final Resul t [facility] [place] [address] * (ABNORMAL) CBC with auto differential (02/09/2025 9:03 AM CDT) WBC 11.54(H) 3.80 - 9.90 K/cumm Hgb 11.5(L) 11.9 - 15.5 g/dL [facility] Hct 35.3(L) 35.6 - 45.5 % [facility] Plt 338 150 - 400 K/cumm [facility] MPV 10.3 9.1 - 12.[address] [facility] RBC 4.32 3.90 - 5.20 M/cumm [facility] MCV 81.7 81.3 - 96.[address] [facility] MCH 26.6(L) 27.1 - 33.[address] [facility] MCHC 32.6 32.3 - 35.7 g/dL [facility] RDW CV 15.7(H) 11.1 - 14.9 % [facility] RDW SD 46.5 35.7 - 48.[address] [facility] NRBC abs 0.00 0.00 - 0.01 K/cumm [facility] Blood 02/09/2025 9:03 AM CDT 02/09/2025 9:37 AM CDT us Kelly Donohue MD LAB BLOOD ORDERABLES Final Resul t Performing Organization Address [facility] Co de Phone Number [facility] [place] [address] * Erythrocyte sedimentation rate (02/09/2025 9:03 AM CDT) [facility] Erythrocyte sedimentation rate 25 1 - 30 mm/hr Blood 02/09/2025 9:03 AM CDT 02/09/2025 9:37 AM CDT us Kelly Donohue MD LAB BLOOD ORDERABLES Final Resul t Performing Organization Address [facility] de Phone Number [facility] [place] [address] * CRP (acute phase) (02/09/2025 9:03 AM CDT) [facility] CRP 2.3 <=10.0 mg/L Blood 02/09/2025 9:03 AM CDT 02/09/2025 9:38 AM CDT us Kelly Donohue MD LAB BLOOD ORDERABLES Final Resul t Performing Organization Address [facility] de Phone Number [facility] Department [place] [address] * (ABNORMAL) Comprehensive metabolic panel (02/09/2025 9:03 AM CDT) [facility] Sodium 137 135 - 145 mmol/L Potassium, pl 5.0(H) 3.3 - 4.9 mmol/L [facility] Chloride 101 97 - 110 mmol/L [facility] CO2 25 22 - 32 mmol/L [facility] Anion gap 11 2 - 15 mmol/L [facility] BUN 39(H) 6 - 25 mg/dL [facility] Creatinine 1.98(H) 0.60 - 1.10 mg/dL [facility] Glucose 89 70 - 199 mg/dL [facility] Comment: Interpretive Data Fasting glucose >/= 126 mg/dl is diagnostic for diabetes. Fasting is defined as no caloric intake for at least 8 hours. Fasting glucose between 100 mg/dl to 125 mg/dl is diagnostic of prediabetes. In a patient with classic symptoms of hyperglycemia or hyperglycemic crisis, a random glucose >/= 200 mg/dl is diagnostic for diabetes. In the absence of unequivocal hyperglycemia, results should be confirmed by repeat testing. The classification and Diagnosis of Diabetes Diabetes Care 2021; 46: S19-S40. Current interpretive data was last revised 2022. Calcium 9.8 8.5 - 10.3 mg/dL [facility] Bilirubin, total 0.2 0.1 - 1.2 mg/dL [facility] Protein, pl 7.5 6.5 - 8.5 g/dL [facility] Albumin 4.4 3.5 - 5.0 g/dL [facility] Alk phos 96 40 - 130 Units/L [facility] ALT 17 7 - 45 Units/L [facility] AST 22 10 - 45 Units/L [facility] Blood 02/09/2025 9:03 AM CDT 02/09/2025 9:38 AM CDT us Kelly Donohue MD LAB BLOOD ORDERABLES Final Resul t [facility] [place] [address] * Imaging SI Joint Injection Bilateral ([id number]) (02/04/2025 9:37 AM CDT) Narrative RAD_[facility] - 02/04/2025 9:37 AM CDT The images from this study are not interpreted by Radiology. Please refer to the physician's procedure / OR operative note. us Reginald King MD IMG PAIN MGMT PROCEDU RES Final Result [facility] * SCREENING MAMMOGRAM BILATERAL W TEVIN (02/25/2024 2:49 PM SOCIAL WORK NURSE) Anatomical Region Laterality Modality Breast Bilateral Mammography Impressions 02/25/2024 4:35 PM SOCIAL WORK NURSE BI-RADS ATLAS category (overall): 1 - Negative There is no mammographic evidence of malignancy. A 1 year screening mammogram is recommended. The patient has been or will be contacted. We recommend annual screening mammography for women at average risk of breast cancer beginning at age 40, based on guidelines of the [place] [employer] (ACR Practice Parameter for the Performance of Screening and Diagnostic Mammography) and [place] [employer]. For women with and elevated risk of breast cancer, please refer to the ACR Practice Parameter for specific screening recommendations. The patient will be entered into a reminder system with a target due date of 1 year for her next screening exam. Narrative 02/25/2024 4:35 PM SOCIAL WORK NURSE SCREENING MAMMOGRAM BILATERAL W TEVIN: 02/25/24 The [...] has been no suspicious change. us Malcolm Phelps MD IM MAMMO PROCEDURES Final Resul t * High Risk HPV DNA Detection with Genotyping (Molecular component) (06/18/2023 11:33 AM SOCIAL WORK NURSE) HPV HR 16 Not Detected Not Detected [facility] Comment:Testing performed by : [facility], [address] [facility] [place]., [address] HPV HR 18 Not Detected Not Detected RISHABH VELASQUEZ Comment:Testing performed by : [facility], [address] [facility], [place]., [address] HPV HR Non 16/18 Not Detected Not Detected [facility]AB[facility] VELASQUEZ Comment: Interpretive Data Nucleic acid amplification for [...] this test have been verified by the [facility] Molecular Infectious Disease laboratory. Correlate with separately reported cytology results, as applicable. Interpretive data last revised 22 Testing performed by: [facility], [address] [place]., [address] Endocervical 06/18/2023 11:3 3 AM SOCIAL WORK NURSE 06/19/2023 8:29 AM SOCIAL WORK NURSE Narrative [facility] - 06/20/2023 5:06 AM SOCIAL WORK NURSE Clinical history and diagnosis->wwe Number of vials->1 Testing type->Screening Last menstrual period (date if known)->postmenopausal Bel Weston CNM LAB BODY FLUIDS AND STOOLS ORDERABLES Final Result [facility] [address] [facility] Department [place] [address] * Hepatitis panel, acute Blood (06/18/2023 11:19 AM SOCIAL WORK NURSE) Hep A IgM Nonreactive Nonreactive [facility] Comment: Interpretive Data: If Hep A IgM Ab is reported as Equivocal, a new sample should be drawn in two weeks for testing. Current interpretive data was last revised on 19. Hep B core IgM Nonreactive Nonreactive [facility] Comment: Interpretive Data If HepB Core IgM Ab is reported as Equivocal, a new sample should be drawn in two weeks for testing. Current interpretive data was last revised on 19. Hep C Ab Nonreactive Nonreactive [facility] Comment: Antibodies to HCV not detected. Does [...] last revised on 2019. HepBsAg Nonreactive Nonreactive [facility] Blood 06/18/2023 11:1 9 AM SOCIAL WORK NURSE 06/18/2023 2:33 PM SOCIAL WORK NURSE Bel Weston CNM LAB MICROBIOLOGY - GENERAL ORDERABLES Final Result [facility] [address] [facility] Department [place] [address] * Colonoscopy (12/27/2020) Anatomical Region Laterality Modality Other Historical Provider ENDOSCOPY PROCEDURES Karla l Result from Last 3 Months or Most Recently Relevant to Health Maintenance Insurance [facility] Advance Directives For more information, please contact: [phone] Documents on File Type Date Recorded Patient Yarn Preparation Supervisor Expl anation ADVANCE DIRECTIVE 09/07/2024 10:18 AM Aparna Avila ower of [employer] * LIMITED - No CPR (Latest Code [...] Agents on File Name Relationship Healthcare Agent Davend p Communication Aparna Tripathi Daughter Health Care Agent Care Teams Systems Support Specialist Relationship Specialty Start Date End Date Malcolm Phelps MD [facility] [address] [address] PCP - General Family Medicine 10/09/22 Kellie Barry MD [address] [place] [id number] Consulting Physician Pulmonary Disease 09/15/23 Kelly Donohue MD [address] [place] [address] Fellow Rheumatology 02/03/24
--- OUTSIDE RECORDS SUMMARY | 2025-04-14 08:58 | XMS_ITS | Clinical Summary ---
Author Organization [facility] Address [address] [facility] [place] [address] Care Team Providers Care Ceo And Co Founder Name Role Phone Ammon Collins MD Primary Care Provider Source Comments [facility],non-owned Affiliates and Associated Physician Practices is amultiple site organization consisting of ambulatory clinics and hospital sitesin [place], [place], [place] and [place]. This disclosure is being madepursuant to the Care Everywhere program and may not contain all information available regarding this patient. 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 Care Teams Ceo And Co Founder Relationship Specialty Start Date End Date Ammon Collins MD [address] [place] [address] PCP - General 01/22/19
--- OUTSIDE RECORDS SUMMARY | 2025-04-14 08:58 | XMS_ITS | Clinical Summary ---
Author Organization [facility] Address [address] [facility] [employer] [address] Care Team Providers Care Data Governance Analyst Name Role Phone Unavailable Primary Care Provider Unavailabl e Social History Tobacco Use Types Packs/Day Years Used Date Smoking Tobacco: Never Assessed Comments Unknown Sex and Gender Information Value Date Recorded Sex Assigned at Not on file Legal Sex Female 12:13 PM EDT Gender Identity Not on file Sexual Orientation Not on file Plan of Treatment Not on file Medical Devices Not on file Insurance [place] [address]
--- OUTSIDE RECORDS SUMMARY | 2025-04-14 08:58 | XMS_ITS | Encounter Summary ---
Author Organization [facility] Address [address] [place] [address] Phone Care Team Providers Care People Manager Name Role Phone Malcolm Phelps MD Primary Care Provider [phone] Kellie Barry MD Unavailable Kelly Donohue MD Unavailable Encounter Details Date Type Department Care Team (Latest Contact Info) Description 12/25/2024 Orders Only [facility] EML Scanning, Provider Social History Tobacco Use Types Packs/Day Years Used Date Smoking Tobacco: Every Day Cigarettes 0.2 24.3 Started: 12/29/2000 Smokeless Tobacco: Never Alcohol Use Standard Drinks/Week Comments Yes 0 (1 standard drink = 0.6 oz pur e alcohol) Sometimes C Utilities Answer Date Recorded In the past 12 months has [employer], gas, oil, or water [employer] threatened to shut off services in your [...] often do you attend chur ch or gnosticism services? Never 09/07/2024 Do you belong to any clubs o r organizations such as yarsanism groups, unions, fraternal or athletic groups, or [...] in the past 12 m [facility], were you homeless or living in a mcc (including now)? No 09/07/2024 Personal Safety Answer Date Recorded Have you ever been in or are you currently in a harmful physical or emotional relationship or is someone making you feel afraid or unsafe? Denies 09/05/2024 Comments No Sex and Gender Information Value Date Recorded Sex Assigned at Not on file Legal Sex Female 2:56 AM LOAD MIXER Gender Identity Female 12/26/2020 11:37 PM CDT Sexual Orientation Straight 12/26/2020 11 :37 PM CDT documented as of this encounter Plan of Treatment Not on file documented as of this encounter Goals Goal Patient Goal Type Associated Problems Recent Progress Patient-Stated? Author CCM Chronic Pain Care Plan Chronic Care Management Improving( 8:34 AM LOAD MIXER) No Elizabeth Wynne RN Note: Problem: Chronic Pain Goals: 1. Minimize further functional decline 2. Maximize quality of life 3. Control pain Strategies: - Activity/exercise program recommendation - Conservative stepwise pain medicine strategy with multi-disciplinary approach - Recommend healthy lifestyle strategies and compensatory methods as needed documented as of this encounter Procedures Procedure Name Priority Date/Time Associated Diagnosis Comments CARDIOLOGY DOCUMENT SCAN 12/25/2024 documented in this encounter Results * Cardiology Document Scan (12/25/2024) Anatomical Region Laterality Modality Other us Provider Scanning CV CARDIAC SERVICES PROCEDURES Final Result documented in this encounter Visit Diagnoses Not on filedocumented in this encounter Care Teams People Manager Relationship Specialty Start Date End Date Malcolm Phelps MD [address] [address] PCP - General Family Medicine 10/09/22 Kellie Barry MD [address] [address] Consulting Physician Pulmonary Disease 09/15/23 Kelly Donohue MD [address] [address] Fellow Rheumatology 02/03/24 documented as of this encounter
== END 2025-04-14 08:54 | disposition home or self-care (01) ==
LOC: ANHFOHIMG 08:56
PROVIDERS: PCP Family Medicine; Visit Provider Nurse Practitioner Family
DX: M81.0 Age-related osteoporosis without current pathological fracture (principal); M85.852 Other specified disorders of bone density and structure, left thigh; M85.851 Other specified disorders of bone density and structure, right thigh
CPT/HCPCS: 77080

== ENCOUNTER 2025-04-14 09:40 | Emergency (ER) | payer OTHER, SELFPAY ==
--- NOTE | ~2025-04-14 | XR_ITS ---
Examination: XR foot LT min 3V Clinical History: pain x 2w Comparison: 08/03/2015 Technique: 5 views left foot Findings/impression: 1. Screw arthrodesis toes 2 and 3 between proximal and middle phalanx but lucency surrounding screws suggest loosening or infection, including widening of joint space. 2. Otherwise no acute abnormality. Reviewed, dictated and finalized at location R. [employer]
--- OUTSIDE RECORDS SUMMARY | 2025-04-14 09:43 | XMS_ITS | Encounter Summary ---
Author Organization [facility] Address [address] [place] [address] Phone Care Team Providers Care Polisher Eyeglass Frames Name Role Phone Malcolm Phelps MD Primary Care Provider [phone] eKllie Barry MD Unavailable Kelly Donohue MD Unavailable [...] Recorded In the past 12 months has [employer], gas, oil, or water [employer] threatened to shut off services in your [...] often do you attend chur ch or oriental orthodox services? Never 09/07/2024 Do you belong to any clubs o r organizations such as episcopalian groups, unions, fraternal or athletic groups, or [...] any time in the past 12 m [facility], were you homeless or living in a senior living (including now)? No 09/07/2024 Personal Safety Answer Date Recorded Have you ever been in or are you currently in a harmful physical or emotional relationship or is someone making you feel afraid or unsafe? 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 Author CCM Chronic Pain Care Plan Chronic Care Management Improving( 8:34 AM MUSICAL INSTRUMENTS ASSEMBLER) No Elizabeth Wynne RN Note: Problem: Chronic [...] on filedocumented in this encounter Care Teams Polisher Eyeglass Frames Relationship Specialty Start Date End Date Malcolm Phelps MD [address] [address] PCP - General Family Medicine 10/09/22 Kellie Barry MD [address] [address] Consulting Physician Pulmonary Disease 09/15/23 Kelly Donohue MD [address] [address] Fellow Rheumatology 02/03/24 documented as of this encounter
--- OUTSIDE RECORDS SUMMARY | 2025-04-14 09:43 | XMS_ITS | Clinical Summary ---
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 Ordered at this time for [facility]. Phone # given for her to reach out to set up DEXA. Follow a Bone Healthy Diet and lifestyle: -Consume Calcium and vit D rich foods -Calcium and vitamin D3 supplementation daily: Calcium 0842-0552 mg total daily dose, take with food. [...] injection but never rec'd. Sent script to [facility] pharmacy. Aware to call office (# given) once rec'd & to have nurse visit scheduled (at [facility] office). Will plan NOV 7 mos from now when next injection will be due). Reviewed SE/scheduling. Will update DEXA at [facility] in [place].Verified that she uses [employer]. Aware to check results/results letter in [employer]. Will contact by phone if needed. Follow a Bone Healthy Diet and lifestyle: -Consume Calcium and vit D rich foods -Calcium and vitamin D3 supplementation daily: Calcium 7121-0254 mg total daily dose, take with food. [...] 05/15/2023 Assessment & Plan (05/15/2023 11:40 AM [facility]): On HCQ (7.18 mg/kg/day) for SLE > 10 years Normal OCT and HVF 10-2 OU today RTC 6 months for OCT and HVF 10-2 Combined forms of age-related cataract of both e yes 05/15/2023 Assessment & Plan (05/15/2023 11:37 AM [facility]): No visual significance OU, monitor Tobacco use [...] update labs today. Verified that she uses [employer]. Aware to check results/results letter in [employer]. Will contact by phone if needed. Assessment & Plan (01/13/2024 2:37 PM CDT): Chronic problem. Will update labs today. Verified that she uses [facility]. Aware to check results/results letter in [employer]. Will contact by phone if needed. Again [...] Plan (08/02/2022 4:43 PM CDT): Start ergocalciferol 59777 IU use weekly Recheck vitamin-D levels in [...] Department Care Team Description 04/09/2025 7:51 AM [facility] - 04/09/2025 11:59 PM [facility] Hospital Encounter [facility] [address] [place] [address] Reginald Palomino MD Sacroiliitis (Primary Dx) Discharge Disposition: Discharge to home or self care 03/24/2025 Telephone [facility] and Endocrinology [address] [place] [phone] Elvia rKueger NP Med Refill ([employer]) 03/17/2025 Telephone [facility] Diabetes and Endocrinology [address] [place] [phone] Opal Evangelista MA Approval Letter ([facility]) 03/16/2025 Telephone [facility] Scheduling [address] [place] [address] Opal Navarro 03/15/2025 Telephone [facility] Diabetes and Endocrinology [address] [place] [phone] Elvia Krueger NP Prior Auth ([employer]) 03/12/2025 9:30 AM [facility] Office Visit [facility] [address] [place] [address] 3, [address] [place] [address] Srikanth Peter MD Lumbar radiculopathy (Primary Dx); Low back pain, non-specific 03/03/2025 Telephone [facility] Pulmonary [address] [facility] [facility] [address]th [place] [address] [place] [address] Kandice Campbell RN 03/02/2025 Telephone [facility] Pulmonary [address] [place] [address] [place] [address] Ann Bassett CMA 02/10/2025 Telephone [facility] Diabetes and Endocrinology [address] [place] [phone] Elvia Krueger NP 02/09/2025 8:55 AM CDT Lab [facility] ([facility]) [address] [place] [phone] Mixed hyperlipidemia; Chest pain, unspecified type; Systemic lupus erythematosus, unspecified SLE type, unspecified organ involvement status (HCC); Arthralgia, unspecified joint 02/09/2025 7:45 AM CDT Office Visit [facility] Rheumatology [address] [place] [address] 5th [place] [address] [place] [address] Kelly Donohue MD Chest pain, unspecified type (Primary Dx) 02/04/2025 7:22 AM CDT - 02/04/2025 11:59 PM CDT Hospital Encounter [facility] at the [facility] [address] [place] [address] [address] [place] [address] Reginald Palomino MD Sacroiliitis Discharge Disposition: Discharge to home or self care 02/03/2025 12:30 PM CDT Office Visit [facility] Family Medicine at [address] [place] [address] Malcolm Phelps MD Essential hypertension (Primary Dx); Encounter for screening mammogram for malignant neoplasm of breast; Tension headache; Stage 3a chronic kidney disease (HCC); Moderate episode of recurrent major depressive disorder (HCC); Fibromyalgia; Eczema, unspecified type; Chronic idiopathic constipation 02/01/2025 Orders Only [facility] Family Medicine at [address] [place] [address] Malcolm Phelps MD Mixed hyperlipidemia (Primary Dx) 01/28/2025 Telephone [facility] Center at the [facility] Medicine [address] [place] [address] [address] [place] [address] Reginald Palomino MD PMC Preprocedure from Last [...] pain SBO (small bowel obstruction) ([facility]) Family History * Patient is adopted [...] = 0.6 oz pur e alcohol) Sometimes [facility] Utilities Answer Date Recorded In the [...] often do you attend chur ch or anglican services? Never 09/07/2024 Do you belong to any clubs o r organizations such as christianity groups, unions, fraternal or athletic groups, or [...] any time in the past 12 [facility], were you homeless or living in a senior living (including now)? No 09/07/2024 AUDIT-C Answer Date [...] on file Legal Sex Female 2:56 AM [facility] Gender Identity Female 12/26/2020 11:37 PM CDT [...] Comments Blood Pressure 144/78 04/09/2025 8:12 AM [facility] 93 Pulse 73 04/09/2025 8:12 AM [facility] Temperature 36.3 C (97.3 F) 04/09/2025 8:12 AM [facility] Respiratory Rate 16 04/09/2025 8:12 AM [facility] Oxygen Saturation 100% 04/09/2025 8:12 AM [facility] ra Inhaled Oxygen Concentration - - Weight 50.8 kg (112 lb) 04/09/2025 8:12 AM [facility] Height 160 cm (5' 3) 04/09/2025 8:12 AM [facility] Body Mass Index 19.84 04/09/2025 8:12 AM [facility] Plan of Treatment Health Maintenance Due Date [...] Plan Chronic Care Management Improving( 8:34 AM [facility]) No Elizabeth Wynne, RN Note: Problem: Chronic [...] Read Routine (OP Routine) 02/25/2024 2:49 PM [facility] Screening mammogram, encounter for HIGH RISK HPV DNA DETECTION WITH GENOTYPING Routine 06/18/2023 11:33 AM [facility] Screening for cervical cancer HEPATITIS PANEL, ACUTE Routine 06/18/2023 11:19 AM [facility] Screening for STD (sexually transmitted disease) COLONOSCOPY [...] MD LAB BLOOD ORDERABLES Final Resul t [facility] [address] [facility] [place] [address] * (ABNORMAL) eGFR (02/09/2025 9:03 AM CDT) [...] MD LAB BLOOD ORDERABLES Final Resul t [facility] [address] [facility] [place] [address] * (ABNORMAL) Differential, auto (02/09/2025 9:03 AM CDT) Neutrophil abs 8.26(H) 1.50 - 6.50 K/cumm Imm gran abs 0.07 0.00 - 0.10 K/cumm [facility] Lymphocyte abs 2.23 0.80 - 3.30 K/cumm [facility] Monocyte abs 0.68 0.20 - 0.80 K/cumm [facility] Eosinophil abs 0.27 0.00 - 0.50 K/cumm [facility] Basophil abs 0.03 0.00 - 0.10 K/cumm [facility] Neutrophil pct 71.6 % [facility] Comment: Interpretive Data Percent cell count reference ranges are not reported, since discordance with absolute values may lead to misinterpretation of CBC data. Current Interpretive Data was last revised on 2017. Imm gran pct 0.6 % [facility] Comment: Interpretive Data Percent cell count reference ranges are not reported, since discordance with absolute values may lead to misinterpretation of CBC data. Current Interpretive Data was last revised on 2017. Lymphocyte pct 19.3 % [facility] Comment: Interpretive Data Percent cell count reference ranges are not reported, since discordance with absolute values may lead to misinterpretation of CBC data. Current Interpretive Data was last revised on 2017. Monocyte pct 5.9 % [facility] Comment: Interpretive Data Percent cell count reference ranges are not reported, since discordance with absolute values may lead to misinterpretation of CBC data. Current Interpretive Data was last revised on 2017. Eosinophil pct 2.3 % [facility] Comment: Interpretive Data Percent cell count reference ranges are not reported, since discordance with absolute values may lead to misinterpretation of CBC data. Current Interpretive Data was last revised on 2017. Basophil pct 0.3 % [facility] Comment: Interpretive Data Percent cell count reference ranges are not reported, since discordance with absolute values may lead to misinterpretation of CBC data. Current Interpretive Data was last revised on 2017. Blood 02/09/2025 9:03 AM CDT 02/09/2025 9:37 AM CDT us Kelly Donohue MD LAB BLOOD ORDERABLES Final Resul t [facility] [address] [facility] [place] [address] * (ABNORMAL) CBC with auto differential (02/09/2025 9:03 AM CDT) WBC 11.54(H) 3.80 - 9.90 K/cumm Hgb 11.5(L) 11.9 - 15.5 g/dL [facility] Hct 35.3(L) 35.6 - 45.5 % [facility] Plt 338 150 - 400 K/cumm [facility] MPV 10.3 9.1 - 12.3 fL [facility] RBC 4.32 3.90 - 5.20 M/cumm [facility] MCV 81.7 81.3 - 96.4 fL [facility] MCH 26.6(L) 27.1 - 33.3 pg [facility] MCHC 32.6 32.3 - 35.7 g/dL [facility] RDW CV 15.7(H) 11.1 - 14.9 % [facility] RDW SD 46.5 35.7 - 48.1 fL [facility] NRBC abs 0.00 0.00 - 0.01 K/cumm [facility] Blood 02/09/2025 9:03 AM CDT 02/09/2025 9:37 AM CDT us Kelly Donohue MD LAB BLOOD ORDERABLES Final Resul t Performing Organization Address [facility] Co de Phone Number [facility] [place] [address] * Erythrocyte sedimentation rate (02/09/2025 9:03 AM CDT) [facility] Erythrocyte sedimentation rate 25 1 - 30 mm/hr Blood 02/09/2025 9:03 AM CDT 02/09/2025 9:37 AM CDT us Kelly Donohue MD LAB BLOOD ORDERABLES Final Resul t Performing Organization Address [facility] de Phone Number [facility] [place] [address] * CRP (acute phase) (02/09/2025 9:03 AM CDT) [facility] CRP 2.3 <=10.0 mg/L Blood 02/09/2025 9:03 AM CDT 02/09/2025 9:38 AM CDT us Kelly Donohue MD LAB BLOOD ORDERABLES Final Resul t Performing Organization Address [facility] de Phone Number [facility] Department [place] [address] * (ABNORMAL) Comprehensive metabolic panel (02/09/2025 9:03 AM CDT) [facility] Sodium 137 135 - 145 mmol/L Potassium, pl 5.0(H) 3.3 - 4.9 mmol/L [facility] Chloride 101 97 - 110 mmol/L [facility] CO2 25 22 - 32 mmol/L [facility] Anion gap 11 2 - 15 mmol/L [facility] BUN 39(H) 6 - 25 mg/dL [facility] Creatinine 1.98(H) 0.60 - 1.10 mg/dL [facility] Glucose 89 70 - 199 mg/dL [facility] Comment: Interpretive Data Fasting glucose >/= [...] Calcium 9.8 8.5 - 10.3 mg/dL [facility] Bilirubin, total 0.2 0.1 - 1.2 mg/dL [facility] Protein, pl 7.5 6.5 - 8.5 g/dL [facility] Albumin 4.4 3.5 - 5.0 g/dL [facility] Alk phos 96 40 - 130 Units/L [facility] ALT 17 7 - 45 Units/L [facility] AST 22 10 - 45 Units/L [facility] Blood 02/09/2025 9:03 AM CDT 02/09/2025 9:38 AM CDT us Kelly Donohue MD LAB BLOOD ORDERABLES Final Resul t [facility] [address] [facility] [place] [address] * Imaging SI Joint Injection Bilateral (48835) (02/04/2025 9:37 AM CDT) Narrative [facility] - 02/04/2025 9:37 AM CDT The images from this study are not interpreted by Radiology. Please refer to the physician's procedure / OR operative note. us Reginald King MD IMG PAIN MGMT PROCEDU RES Final Result [facility] * SCREENING MAMMOGRAM BILATERAL W TEVIN (02/25/2024 2:49 PM [facility]) Anatomical Region Laterality Modality Breast Bilateral Mammography Impressions 02/25/2024 4:35 PM [facility] BI-RADS ATLAS category (overall): 1 - Negative There is no mammographic evidence of malignancy. A 1 year screening mammogram is recommended. The patient has been or will be contacted. We recommend annual screening mammography for women at average risk of breast cancer beginning at age 40, based on guidelines of the [employer] (ACR Practice Parameter for the Performance of Screening and Diagnostic Mammography) and [employer]. For women with and elevated risk of breast cancer, please refer to the ACR Practice Parameter for specific screening recommendations. The patient will be entered into a reminder system with a target due date of 1 year for her next screening exam. Narrative 02/25/2024 4:35 PM [facility] SCREENING MAMMOGRAM BILATERAL W TEVIN: 02/25/24 The [...] with Genotyping (Molecular component) (06/18/2023 11:33 AM [facility]) HPV HR 16 Not Detected Not Detected [facility] VEL[facility]QUE[facility] Comment:Testing performed by : [facility], [address] [place]., [address] HPV HR 18 Not Detected Not Detected RISHABH VELASQUEZ Comment:Testing performed by : [facility], [address] [facility], [place]., [address] HPV HR Non 16/18 Not Detected Not [...] this test have been verified by the [facility] Molecular Infectious Disease laboratory. Correlate with separately reported cytology results, as applicable. Interpretive data last revised 22 Testing performed by: [facility], [address] [place]., [address] Endocervical 06/18/2023 11:3 3 AM [facility] 06/19/2023 8:29 AM [facility] Narrative [facility] - 06/20/2023 5:06 AM [facility] Clinical history and diagnosis->wwe Number of vials->1 Testing type->Screening Last menstrual period (date if known)->postmenopausal [facility] CNM LAB BODY FLUIDS AND STOOLS ORDERABLES Final Result [facility] [address] [facility] Department [place] [address] * Hepatitis panel, acute Blood (06/18/2023 11:19 AM [facility]) Hep A IgM Nonreactive Nonreactive [facility] Comment: Interpretive Data: If Hep A IgM Ab is reported as Equivocal, a new sample should be drawn in two weeks for testing. Current interpretive data was last revised on 19. Hep B core IgM Nonreactive Nonreactive [facility] Comment: Interpretive Data If HepB Core IgM Ab is reported as Equivocal, a new sample should be drawn in two weeks for testing. Current interpretive data was last revised on 19. Hep C Ab Nonreactive Nonreactive [facility] Comment: Antibodies to HCV not detected. [...] Nonreactive [facility] Blood 06/18/2023 11:1 9 AM [facility] 06/18/2023 2:33 PM [facility] CNM LAB MICROBIOLOGY - GENERAL ORDERABLES Final Result [facility] [address] [facility] Department [place] [address] * Colonoscopy (12/27/2020) Anatomical Region Laterality Modality Other Historical Provider ENDOSCOPY PROCEDURES Karla l Result from Last 3 Months or Most Recently Relevant to Health Maintenance Insurance [facility] Advance Directives For more information, please contact: [phone] Documents on File Type Date Recorded Patient Measurement And Verification Engineer Expl anation ADVANCE DIRECTIVE 09/07/2024 10:18 AM Aparna Avila ower of Independent Sales Representative-Medical * LIMITED - No CPR (Latest Code [...] Agents on File Name Relationship Healthcare Agent Davepa p Communication Aparna Tripathi Daughter Health Care Agent Care Teams Food Manager Relationship Specialty Start Date End Date Malcolm Phelps MD [facility] [address] [address] PCP - General Family Medicine 10/09/22 Kellie Barry MD [address] [place] [id number] Consulting Physician Pulmonary Disease 09/15/23 Kelly Donohue MD [address] [place] [address] Fellow Rheumatology 02/03/24
--- OUTSIDE RECORDS SUMMARY | 2025-04-14 09:43 | XMS_ITS | Data Portability ---
Author Organization [facility], Main Office Address [address] [place] [address] Care Team Providers Care Banquet Houseperson Name Role Phone NILES MATA Primary Care Provider ESPERANZA NILES Referring Provider [phone] Assessment Encounter Date Assessment Date Assessment LastModified by Organization Details LastModified Time 08/03/2024 08/03/2024 This note is dictated and transcribed by [employer]. Workforce Analyst variances may occur. Despite proofreading, typographical errors may occur. Occasional wrong-word or '[id number]' substitutions may have occurred due to the inherent limitations of voice recording. Read the chart carefully and recognize, using context, where substitutions have occurred. [email or web address] Not available 08/05/2024 09:09:03 Plan of Treatment Reminders Order Date Submit Date Provider Last Modified By Organization Details Last Modified Time Details Appointments None record ed. Lab None record ed. Referral None record ed. Procedures None record ed. Surgeries None record ed. Imaging XR, foot, 3 or more view 025 08/06/19 25 [email or web address] [facility] [place], [address], [place], [address], 5 09:40:23 XR, foot, 3 or more view 025 08/06/19 25 [email or web address] [facility] [place], [address], [place], [address], 5 09:40:23 Medication Orders None record ed. Patient TargetsNo targets recorded. Patient InstructionsNo instructions recorded. Reason for Referral None Reported. Results Created Date Observation Date Name Description Value Unit Range Abnormal Flag Note LastModifiedBy Organization Detail LastModifiedTime 08/25/19 22 08/24/2021 XR, foot No observ ation record ed. [id number] [facility] [place] [address], [place], [address], 06/20/2022 01:00:01 09/08/19 22 09/07/2021 XR, foot No observ ation record ed. [id number] [facility] [place] [address], [place], [address], 06/20/2022 01:00:01 10/10/19 22 10/10/2021 XR, foot No observ ation record ed. [id number] [facility] [place] [address], [place], [address], 06/20/2022 01:00:01 08/06/19 25 XR, foot, 3 or more view No observ ation record ed. [email or web address] [facility] [place] [address], [place], [address], 08/05/2024 09:40:20 08/06/19 25 XR, foot, 3 or more view No observ ation record ed. [email or web address] [facility] [place] [address], [place], [address], 08/05/2024 09:38:34 Result Notes None recorded. Problems Name Problem SNOMED Code Status Onset Date Resolution Date Notes Provider Name and Address Organization Details Recorded Time Depressive disorder 77200690 Active Not Available [facility] 3 00:51:28 Hypertensi ve disorder 31262422 Active Not Available [facility] 3 00:51:28 Gout 46150121 Active Not Available [facility] 3 00:51:28 Bunion 703757818 Active 2019 Not Available [facility] 3 00:51:28 Postoperat mich visit 646256403 Active 2019 Not Available [facility] 3 00:51:28 Postoperat mich pain 738739431 Active 2019 Not Available [facility] 3 00:51:28 Metatarsal faisal of left foot 3416053991979 06 Active 2020 Not Available [facility] 3 00:51:28 Yun's neuroma of left foot 9146310410437 05 Active 2020 Not Available [facility] 3 00:51:28 Hammer toe 002621131 Active 2020 Not Available [facility] 3 00:51:28 Pain in left foot 5192798755201 07 Active 2021 Not Available [facility] 3 00:51:28 Foot pain 57618458 Active 2021 Not Available [facility] 3 00:51:28 Foot pain 23846405 Active 2021 Not Available [facility] 3 00:51:28 Pain in bilateral feet 0555585960595 9102 Active 2024 Dequan Vazquez DPM [address], [place] [address], [place], [address] , [employer] [facility] [employer] [facility] 5 09:27:08 Hammer toe 176093264 Active 2024 Dequan Vazquez DPM [address], [address], [place], [address] , [employer] [facility] 5 09:35:28 Problem Notes None recorded. Medical Equipment None Reported. Medications Name Sig Start Date Stop Date Status Note LastModified by Organization Details LastModified Time cyclobenzap rine 10 mg tablet TAKE 1 TABLET BY MOUTH AT BEDTIME FOR 7 DAYS active Not Available Not Available No t Available amoxicillin 500 mg capsule TAKE 1 CAPSULE BY MOUTH TWICE A DAY active Not Available Not Available No t Available furosemide 40 mg tablet TAKE 1 TABLET BY MOUTH EVERY DAY active Not Available Not Available No t Available bupropion HCl SR 150 mg tablet,12 hr sustained-r elease TAKE 1 TABLET BY MOUTH TWICE A DAY active Not Available Not Available No t Available potassium chloride ER 10 mEq capsule,ext ended release 11/15 completed Not Available Not Available Not Available prednisone 10 mg tablet active Not Available Not Available Not Available atenolol 100 mg-chlortha lidone 25 mg tablet TAKE 1 TABLET BY MOUTH EVERY DAY active Not Available Not Available No t Available gabapentin 600 mg tablet TAKE 1.5 TAB BY MOUTH 3 TIMES A DAY active Not Available Not Available No t Available atorvastati n 20 mg tablet TAKE 1 TABLET BY MOUTH EVERY DAY active Not Available Not Available No t Available nicotine 14 mg/24 hr daily transdermal patch APPLY 1 PATCH EVERY DAY active Not Available Not Available No t Available Klor-Con 10 mEq tablet,exte nded release 11/15 completed Not Available Not Available Not Available oxybutynin chloride ER 10 mg tablet,exte nded release 24 hr TAKE 1 TABLET BY MOUTH EVERY DAY active Not Available Not Available No t Available tizanidine 4 mg tablet TAKE 1 TABLET BY MOUTH EVERY DAY active Not Available Not Available No t Available fluconazole 150 mg tablet Take 1 tablet by oral route. active Not Available Not Available No t Available ranitidine 300 mg tablet 11/15 completed Not Available Not Available Not Available hydrocodone 5 mg-acetamin ophen 325 mg tablet TAKE 1 TABLET BY MOUTH EVERY 6 HOURS NEEDED FOR MODERATE TO SEVERE PAIN active Not Available Not Available No t Available sucralfate 1 gram tablet TAKE 1 TABLET BY MOUTH FOUR TIMES A DAY active Not Available Not Available No t Available famotidine 40 mg tablet TAKE 1 TABLET BY MOUTH TWICE A DAY active Not Available Not Available No t Available sertraline 100 mg tablet TAKE 1 & 1/2 TABLETS BY MOUTH EVERY DAY active Not Available Not Available No t Available quetiapine 200 mg tablet TAKE 1 TABLET BY MOUTH TWICE A DAY NEEDED active Not Available Not Available No t Available atenolol 50 mg-chlortha lidone 25 mg tablet TAKE 1 TABLET BY MOUTH EVERY DAY 11/15 completed Not Available Not Available Not Available hydroxyzine pamoate 50 mg capsule 11/15 completed Not Available Not Available Not Available metronidazo le 500 mg tablet TAKE 1 TABLET BY MOUTH EVERY 12 HOURS active Not Available Not Available No t Available acetaminoph en 300 mg-codeine 30 mg tablet 11/15 completed Not Available Not Available Not Available allopurinol 100 mg tablet TAKE 2 TABLETS BY MOUTH EVERY DAY active Not Available Not Available No t Available peg-electro lyte solution 420 gram oral solution TAKE DIRECTED BY OFFICE active Not Available Not Available No t Available omeprazole 40 mg capsule,del ayed release TAKE 1 CAPSULE (40 MG TOTAL) BY MOUTH DAILY. active Not Available Not Available No t Available tramadol 50 mg tablet TAKE 1 TABLET (50 MG TOTAL) BY MOUTH EVERY 8 (EIGHT) HOURS NEEDED FOR PAIN. active Not Available Not Available No t Available quetiapine 100 mg tablet 11/15 completed Not Available Not Available Not Available triamcinolo ne acetonide 0.1 % topical cream APPLY TO AFFECTED AREA TWICE A DAY active Not Available Not Available No t Available butalbital- acetaminoph en-caffeine 50 mg-325 mg-40 mg tablet TAKE 1 TABLET BY MOUTH EVERY 6 HOURS NEEDED FOR HEADACHES . active Not Available Not Available No t Available acyclovir 800 mg tablet TAKE 1 TABLET BY MOUTH DAILY. active Not Available Not Available No t Available meloxicam 7.5 mg tablet TAKE 1 TABLET BY MOUTH EVERY DAY active Not Available Not Available No t Available prazosin 5 mg capsule TAKE 2 CAPSULES EVERY DAY BY ORAL ROUTE NEEDED. active Not Available Not Available No t Available oxycodone-a cetaminophe n 5 mg-325 mg tablet Take 1 tablet every 8 hours by oral route as needed for 7 days. active Not Available Not Available No t Available alprazolam 0.25 mg tablet 09/18 completed Not Available Not Available Not Available famotidine 20 mg tablet TAKE 1 TABLET BY MOUTH TWICE A DAY active Not Available Not Available No t Available prednisolon e acetate 1 % eye drops,suspe nsion 11/15 completed Not Available Not Available Not Available cephalexin 500 mg capsule 11/15 completed Not Available Not Available Not Available mirtazapine 30 mg tablet TAKE 1 TABLET BY MOUTH EVERY DAY AT BEDTIME NEEDED 11/15 completed Not Available Not Available Not Available triamcinolo ne acetonide 0.1 % topical ointment active Not Available Not Available Not Available lidocaine 5 % topical patch APPLY 1 PATCH TOPICALLY DAILY. active Not Available Not Available No t Available promethazin e 25 mg tablet TAKE 1/2 TAB BY MOUTH EVERY 6 HOURS NEEDED FOR NAUSEA active Not Available Not Available No t Available guanfacine 1 mg tablet TAKE 1 TABLET BY MOUTH EVERY DAY AT BEDTIME NEEDED active Not Available Not Available No t Available indomethaci n 50 mg capsule 09/18 completed Not Available Not Available Not Available nicotine 21 mg/24 hr daily transdermal patch 11/15 completed Not Available Not Available Not Available gabapentin 300 mg capsule 09/18 completed Not Available Not Available Not Available hydroxyzine HCl 25 mg tablet TAKE 1 TABLET (25 MG TOTAL) BY MOUTH EVERY 4 (FOUR) HOURS NEEDED FOR ITCHING active Not Available Not Available No t Available codeine 10 mg-guaifene sin 100 mg/5 mL oral liquid TAKE 5-10 ML BY MOUTH EVERY 4 (FOUR) HOURS NEEDED FOR COUGH active Not Available Not Available No t Available lisinopril 5 mg tablet TAKE 1 TABLET (5 MG TOTAL) BY MOUTH DAILY. active Not Available Not Available No t Available furosemide 20 mg tablet TAKE 1 TABLET BY MOUTH EVERY DAY active Not Available Not Available No t Available ergocalcife rol (vitamin D2) 1,250 mcg (50,000 unit) capsule TAKE 1 CAPSULE BY MOUTH ONE TIME PER WEEK active Not Available Not Available No t Available hydroxychlo roquine 200 mg tablet TAKE 2 TABLETS BY MOUTH EVERY DAY active Not Available Not Available No t Available levofloxaci n 750 mg tablet TAKE 1 TABLET BY MOUTH EVERY DAY FOR 10 DAYS active Not Available Not Available No t Available [place] 7.5 mg-325 mg tablet Take 1 tablet every 8 hours by oral route as needed for 7 days. active Not Available Not Available No t Available zolpidem 10 mg tablet TAKE 1 TABLET NEEDED BY ORAL ROUTE AT BEDTIME FOR 15 DAYS. active Not Available Not Available No t Available colchicine 0.6 mg tablet 09/18 completed Not Available Not Available Not Available oxybutynin chloride 5 mg tablet TAKE 1 TABLET BY MOUTH EVERY DAY AT NIGHT active Not Available Not Available No t Available fluoxetine 20 mg capsule 09/18 completed Not Available Not Available Not Available sertraline 50 mg tablet active Not Available Not Available Not Available nicotine 7 mg/24 hr daily transdermal patch PLACE 1 PATCH ON THE SKIN DAILY (START AFTER 6 WEEKS OF 14 MG DOSE) active Not Available Not Available No t Available Saline Nose 0.65 % spray aerosol SPRAY 1 PUFF BY INTRANASA L ROUTE 2 TIMES PER DAY FOR 7 DAYS 11/15 completed Not Available Not Available Not Available nitrofurant oin monohydrate /macrocryst als 100 mg capsule active Not Available Not Available Not Available lubiproston e 24 mcg capsule TAKE 1 CAPSULE BY MOUTH 2 TIMES A DAY WITH MEALS. active Not Available Not Available No t Available varenicline tartrate 1 mg tablet TAKE 1 TABLET BY MOUTH 2 TIMES A DAY TAKE WITH FULL GLASS OF WATER. active Not Available Not Available No t Available varenicline tartrate 0.5 mg (11)-1 mg (42) tablets in a dose pack USE DIRECTED ON PACKAGE INSTRUCTI ONS, TRY TO QUIT SMOKING AFTER 1 WEEK active Not Available Not Available No t Available diclofenac 1 % topical gel APPLY 4 G TOPICALLY 4 (FOUR) TIMES A DAY NEEDED (HAND PAIN) active Not Available Not Available No t Available Linzess 145 mcg capsule TAKE 1 CAPSULE BY MOUTH EVERY DAY active Not Available Not Available No t Available potassium chloride ER 20 mEq tablet,exte nded release 11/15 completed Not Available Not Available Not Available Trintellix 10 mg tablet TAKE 1 TABLET BY MOUTH EVERY DAY active Not Available Not Available No t Available Linzess 72 mcg capsule TAKE 1 CAPSULE BY MOUTH DAILY. active Not Available Not Available No t Available allopurinol 200 mg tablet TAKE 1 TABLET BY MOUTH EVERY DAY active Not Available Not Available No t Available Vitals Date Recorded Heart rate Respiratory rate Oxygen saturation Systolic And Diastolic Provider Name and Address Organization Details Last Updated DateTime 08/03/2024 84 /min 14 /min 98 % 153/89 mm[Hg] Mariah VERA [place] [employer] [facility] 11:52:13 Date Recorded Body mass index (BMI) Body height Body weight Provider Name and Address Organization Details Last Updated DateTime 08/17/2021 26.6 kg/m2 160.02 cm 72636.86 g Not Available Christina alysia 06/20/2022 00:49:47 Date Recorded Body mass index (BMI) Body height Body weight Provider Name and Address Organization Details Last Updated DateTime 08/24/2021 26.6 kg/m2 160.02 cm 12208.86 g Not Available Christina alysia 06/20/2022 00:49:47 Date Recorded Body mass index (BMI) Body height Body weight Provider Name and Address Organization Details Last Updated DateTime 09/07/2021 26.6 kg/m2 160.02 cm 39863.86 g Not Available [facility] 06/20/2022 00:49:47 Date Recorded Body mass index (BMI) Body height Body weight Provider Name and Address Organization Details Last Updated DateTime 10/09/2021 26.6 kg/m2 160.02 cm 74919.86 g Not Available [facility] 06/20/2022 00:49:47 Social History None recorded. Functional Status None recorded. Mental Status None recorded. Family History Nothing Reported Notes:09/18/2017 family hx un known, pt was adopted-dw Medical History Condition Response ARTHRITIS Y HEADACHES/MIGRAINES Y FIBROMYALGIA Y GOUT Y DEPRESSION (INCLUDING POST ) Y BOWEL PROBLEMS Y BACK / NECK PROBLEMS Y HEARTBURN / REFLUX Y HERPES Y HYPERTENSION Y HIGH CHOLESTEROL / HYPERLIPIDEMIA Y Gynecological HistoryNo gynecological history recorded. Obstetrics History GPAL:G 0 P 0 0 0 0 Past Encounters Encounter ID Performer Location Encounter Start Date Encounter Closed Date Diagnosis/Indication Diagnosis SNOMED-CT Code Diagnosis ICD10 Code Diagnosis IMO Codes Diagnosis Note [id number] [facility] [place] [address] [place] [address] 06/30/2020 00:00:00 07/03/2020 17:03:43 [id number] [facility] [place] [address] [place] [address] 03/06/2021 00:00:00 03/07/2021 12:22:13 [id number] [facility] [place] [address] [place] [address] 08/17/2021 00:00:00 08/17/2021 19:18:31 [id number] [facility] [place] [address] [place] [address] 08/24/2021 00:00:00 08/27/2021 13:48:47 [id number] [facility] [place] [address] [place] [address] 09/07/2021 00:00:00 09/07/2021 15:31:36 [id number] [facility] [place] [address] [place] [address] 10/09/2021 00:00:00 10/10/2021 10:06:08 [id number] Dequan Vazquez DPM [facility] [place] [address] [place] [address] 08/03/2024 11:46:02 08/06/2024 08:32:45 Pain in bilateral feet 7380684961 3967425 M79.671 M79.672 discussed conservati ve optionsric e therapy, wide shoe gear, NSAIDs, topical Voltaren, offloading sleeve, bunion sleeve, orthotics Bunion 652427838 M21.61 9 as below Hammer toe 204718194 M20 .41 M20.42 previous failed surgerydis cussed optionswil l trail offloading and wide shoe gear Health Concerns Section Related Observation LastModified by Organization Detai ls LastModified Time None Recorded Concern Status LastModified by Organization Details LastModified Time None Recorded Advance Directives Directive None Recorded Payers Insurance Date Sequence Insurance Name Policy Number Policy Ponce Covered Member ID Ponce Member ID Guarantor Name 08/06/2024 1 [facility] (MEDICAID HMO) [id number] Jessica Balaji [id number] [facility] Balaji Notes Date Note Type Note Provider Name and Address Organization Details Recorded Time 08/03/2024 text/html . Patient is a 58-year-old female she presents to the office with complaints of pain to both feet she states that she had previous bunion and hammertoe surgery to which she has continued to have problems. Patient denies any open wounds. Patient states when she is walking her toes are painful worse to the 1st 2nd and 3rd toes. Patient denies any other complaints. Dequan Vazquez DPM [address], [place], [address], [facility] 08/05/2024 09:41:43 OBGyn Episode No OBEpisode recorded.
--- OUTSIDE RECORDS SUMMARY | 2025-04-14 09:43 | XMS_ITS | Clinical Summary ---
Author Organization [facility] Address [address] [place] [address] Care Team Providers Care Bass Mechanism Maker Name Role Phone Ammon Collins MD Primary Care Provider [phone] Source Comments [facility],non-owned Affiliates and Associated Physician Practices is amultiple site organization consisting of ambulatory clinics and hospital sitesin [place], [place], [place] and [place]. This disclosure is being madepursuant to the Care Everywhere program and may not contain all information available regarding this patient. 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
--- OUTSIDE RECORDS SUMMARY | 2025-04-14 09:43 | XMS_ITS | Clinical Summary ---
Author Organization [facility] Address [address] [place] [address] Phone Care Team Providers Care Sternman Name Role Phone Italo Bolton MD Primary Care Provider [phone] Allergies No known active allergies Medications atorvastatin (LIPITOR) 20 MG tablet Take 20 mg by mouth 1 (one) time each day Active hydroxychloroqu ine (PLAQUENIL) 200 MG tablet Take 200 mg [...] MG tablet Take 40 mg by mouth in the morning and 40 mg in the evening. Active sertraline (ZOLOFT) 100 MG tablet Take 150 mg by mouth 1 (one) time each day Active prazosin (MINIPRESS) 2 MG capsule Take 4 mg by mouth 1 (one) time each day if needed Active gabapentin (NEURONTIN) 600 MG tablet Take 900 mg by mouth in the morning and 900 mg in the evening and 900 mg before bedtime. Active atenolol-chlort halidone (TENORETIC) 100-25 MG per tablet Take 1 tablet by mouth 1 (one) time each day Active Active Problems Problem Noted Date Diagnosed Date Anemia in chronic kidney disease 01/07/2025 Essential hypertension 10/14/2019 Gout associated problem 10/14/2019 Stage 3b chronic kidney disease 10/21/2018 Systemic lupus erythematosus 11/03/2010 Resolved Problems Problem Noted Date Diagnosed Date Resolved Date Right flank pain 03/05/2023 01/07/2025 Urinary tract infectious disease 06/24/2022 03/05/2023 Abnormal renal function 10/14/201910/21 Vitamin D deficiency 10/21/2018 020 Lupus erythematosus 10/21/2018 11/16/19 20 Hyperlipidemia 10/21/2018 06/02/2020 Trochanteric bursitis 01/04/20172019 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 11/16/2019 Chronic kidney disease, stage 4 (severe) 11/04/2015 01/07/2025 Hyperlipidemia 11/04/2015 11/16/2019 Fibromyalgia 04/17/2013 11/16/2019 Immunizations [...] Sign Reading Time Taken Comments Blood Pressure 165/93 01/07/2025 10:18 AM CDT Pulse 92 01/07/2025 10:18 AM CDT Temperature - - Respiratory Rate - - Oxygen Saturation - - Inhaled Oxygen Concentration - - Weight 51.7 kg (114 lb) 01/07/2025 10:18 AM CDT Height 160 cm (5' 3) 01/07/2025 10:18 AM CDT Body Mass Index 20.19 01/07/2025 10:18 AM CDT Plan of Treatment Upcoming Encounters Date Type Department Care Team ([facility] st Contact Info) Description 05/13/2025 10:20 AM HEAD OF TRANSPORT LOGISTICS Office Visit [facility] [address] [facility] [address] [place] [address] Bharti Mcgee NP [address] [address] Health Maintenance Due Date Last Done Comments Pneumococcal PPSV23 Highest Risk Adult (1 of 3 - PCV13) 12/11/1982 COVID-19 Vaccine (3 - 2025-26 season) 2024, 07/18/2020 Influenza Vaccine (#1) 2024 01/12/2019, 2018 Insurance [facility] Care Teams Sternman Relationship Specialty Start Date End Date Italo Bolton MD [address] [place] [phone] PCP - General 01/06/25
--- OUTSIDE RECORDS SUMMARY | 2025-04-14 09:43 | XMS_ITS | Clinical Summary ---
Author Organization [facility] Address [address] [facility] [place] [address] Care Team Providers Care Steel Melter Name Role Phone Unavailable Primary Care Provider [...] file Medical Devices Not on file [place] [place] [address]
--- OUTSIDE RECORDS SUMMARY | 2025-04-14 09:43 | XMS_ITS | Clinical Summary ---
Author Organization [facility] Address [address] [place] [address] Care Team Providers Care Church Official Name Role Phone Nany Zavaleta NP Primary [...] this topic Insurance [employer] Care Teams Church Official Relationship Specialty Start Date End Date Nany Zavaleta NP PCP - General 02/17/16
[2025-04-14 10:48] VITALS: BP 146/76; PULSE 90; RESP 17; TEMP 36.4; O2SAT 100
[2025-04-14 11:22] VITALS: BP 152/64; PULSE 79; RESP 14; TEMP 36.5; O2SAT 100
--- OUTSIDE RECORDS SUMMARY | 2025-04-14 12:37 | XMS_ITS | Clinical Summary ---
Author Organization [facility] [employer] Address [address] [facility] [place] [address] Care Team Providers Care Professor Of Economics Name Role Phone Ammon Collins MD Primary Care Provider [phone] Source Comments [facility] [employer]non-owned Affiliates and Associated Physician Practices is amultiple site organization consisting of ambulatory clinics and hospital sitesin [place], [place], [place] and [place]. This disclosure is being madepursuant to the Care Everywhere program and may not contain all information available regarding this patient. Last updated 18.[facility] [employer] 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
--- OUTSIDE RECORDS SUMMARY | 2025-04-14 12:37 | XMS_ITS | Clinical Summary ---
Author Organization [facility] Address [address] [place] [address] Care Team Providers Care Concrete Carpenter Name Role Phone Nany Zavaleta NP Primary [...] this topic Insurance [employer] Care Teams Concrete Carpenter Relationship Specialty Start Date End Date Nany Zavaleta NP PCP - General 02/17/16
--- OUTSIDE RECORDS SUMMARY | 2025-04-14 12:37 | XMS_ITS | Clinical Summary ---
Author Organization [facility] Address [address] [place] [address] Care Team Providers Care Watermaster Name Role Phone Malcolm Phelps MD Primary Care Provider Kellie Barry MD Unavailable [phone] Kelly Donohue MD Unavailable Allergies No known [...] test kit-medium kitIndications:Es sential hypertension 1 each lip reading teacher before breakfast 1 kit Active lisinopriL (PRINIVIL,ZESTRIL [...] Overview (09/06/2024): Associated with colitis etiology WBC 44070, lactic acid 3.4, heart rate 103, respiratory rate 22 Repeat lactate level 3.2 IV fluid IV antibiotic with ceftriaxone and metronidazole Pending follow-up of blood cultures x2 Assessment & Plan (09/06/2024 2:02 AM CDT): Associated with colitis etiology WBC 83451, lactic acid 3.4, heart rate 103, respiratory [...] last year. Ordered at this time for [facility]. Phone # given for her to reach out to set up DEXA. Follow a Bone Healthy Diet and lifestyle: -Consume Calcium and vit D rich foods -Calcium and vitamin D3 supplementation daily: Calcium 6455-0177 mg total daily dose, take with food. [...] injection but never rec'd. Sent script to [facility] Specialty pharmacy. Aware to call office (# given) once rec'd & to have nurse visit scheduled (at [facility] office). Will plan NOV 7 mos from now when next injection will be due). Reviewed SE/scheduling. Will update DEXA at [facility] in [place].Verified that she uses [employer]. Aware to check results/results letter in [employer]. Will contact by phone if needed. Follow a Bone Healthy Diet and lifestyle: -Consume Calcium and vit D rich foods -Calcium and vitamin D3 supplementation daily: Calcium 5734-2027 mg total daily dose, take with food. [...] 05/15/2023 Assessment & Plan (05/15/2023 11:40 AM TENTS ASSEMBLER): On HCQ (7.18 mg/kg/day) for SLE > 10 years Normal OCT and HVF 10-2 OU today RTC 6 months for OCT and HVF 10-2 Combined forms of age-related cataract of both e yes 05/15/2023 Assessment & Plan (05/15/2023 11:37 AM TENTS ASSEMBLER): No visual significance OU, monitor Tobacco use [...] update labs today. Verified that she uses [facility] Aware to check results/results letter in [employer]. Will contact by phone if needed. Assessment & Plan (01/13/2024 2:37 PM CDT): Chronic problem. Will update labs today. Verified that she uses [facility]. Aware to check results/results letter in [employer]. Will contact by phone if needed. Again [...] Plan (08/02/2022 4:43 PM CDT): Start ergocalciferol 65237 IU use weekly Recheck vitamin-D levels in [...] Department Care Team Description 04/09/2025 7:51 AM TENTS ASSEMBLER - 04/09/2025 11:59 PM TENTS ASSEMBLER Hospital Encounter [facility] [address] [place] [address] Reginadl Palomino MD Sacroiliitis (Primary Dx) Discharge Disposition: Discharge to home or self care 03/24/2025 Telephone [facility] Diabetes and Endocrinology [address] [place] [phone] Elvia Krueger NP Med Refill ([employer]) 03/17/2025 Telephone [facility] Diabetes and Endocrinology [address] [place] [phone] Opal Evangelista MA Approval Letter ([facility]) 03/16/2025 Telephone [facility] Medicine Scheduling [address] [place] [address] Opal Navarro 03/15/2025 Telephone [facility] Diabetes and Endocrinology [address] [place] [phone] Elvia Krueger NP Prior Auth ([employer]) 03/12/2025 9:30 AM TENTS ASSEMBLER Office Visit [facility] [address] [place] [address] [address], [address] [place] [address] Srikanth Peter MD Lumbar radiculopathy (Primary Dx); Low back pain, non-specific 03/03/2025 Telephone [facility] Medicine Pulmonary [address] [facility] 8th [place] [address] [place] [address] Kandice Campbell RN 03/02/2025 Telephone [facility] Medicine Pulmonary [address] [facility] 8th [place] [address] [place] [address] Ann Bassett CMA 02/10/2025 Telephone [facility] Diabetes and Endocrinology [address] [place] [phone] Elvia Krueger NP 02/09/2025 8:55 AM CDT Lab [facility] ([facility]) [address] [place] [phone] Mixed hyperlipidemia; Chest pain, unspecified type; Systemic lupus erythematosus, unspecified SLE type, unspecified organ involvement status (HCC); Arthralgia, unspecified joint 02/09/2025 7:45 AM CDT Office Visit [facility] Medicine Rheumatology [address] [place] [address] 5th [place] [address] Kelly Donohue MD Chest pain, unspecified type (Primary Dx) 02/04/2025 7:22 AM CDT - 02/04/2025 11:59 PM CDT Hospital Encounter [facility] [address] [place] [address] [address] [place] [address] Reginald Palomino MD Sacroiliitis Discharge Disposition: Discharge to home or self care 02/03/2025 12:30 PM CDT Office Visit [facility] Family Medicine at [address] [place] [address] Malcolm Phelps MD Essential hypertension (Primary Dx); Encounter for screening mammogram for malignant neoplasm of breast; Tension headache; Stage 3a chronic kidney disease (HCC); Moderate episode of recurrent major depressive disorder (HCC); Fibromyalgia; Eczema, unspecified type; Chronic idiopathic constipation 02/01/2025 Orders Only [facility] Family Medicine at [address] [place] [address] Malcolm Phelps MD Mixed hyperlipidemia (Primary Dx) 01/28/2025 Telephone [facility] Advanced Medicine [address] [place] [address] [address] [place] [address] Reginald Palomino MD PMC Preprocedure from Last [...] SBO (small bowel obstruction) ([facility]) Family History * Patient is adopted [...] = 0.6 oz pur e alcohol) Sometimes [facility] Utilities Answer Date Recorded In the [...] any clubs o r organizations such as sabianist groups, unions, fraternal or athletic groups, or [...] any time in the past 12 m [facility], were you homeless or living in a snf (including now)? No 09/07/2024 AUDIT-C Answer Date [...] on file Legal Sex Female 2:56 AM TENTS ASSEMBLER Gender Identity Female 12/26/2020 11:37 PM [...] Comments Blood Pressure 144/78 04/09/2025 8:12 AM TENTS ASSEMBLER 93 Pulse 73 04/09/2025 8:12 AM TENTS ASSEMBLER Temperature 36.3 C (97.3 F) 04/09/2025 8:12 AM TENTS ASSEMBLER Respiratory Rate 16 04/09/2025 8:12 AM TENTS ASSEMBLER Oxygen Saturation 100% 04/09/2025 8:12 AM TENTS ASSEMBLER ra Inhaled Oxygen Concentration - - Weight 50.8 kg (112 lb) 04/09/2025 8:12 AM TENTS ASSEMBLER Height 160 cm (5' 3) 04/09/2025 8:12 AM TENTS ASSEMBLER Body Mass Index 19.84 04/09/2025 8:12 AM TENTS ASSEMBLER Plan of Treatment Health Maintenance Due Date [...] Plan Chronic Care Management Improving( 8:34 AM TENTS ASSEMBLER) No Elizabeth Wynne, RN Note: Problem: Chronic [...] Read Routine (OP Routine) 02/25/2024 2:49 PM TENTS ASSEMBLER Screening mammogram, encounter for HIGH RISK HPV DNA DETECTION WITH GENOTYPING Routine 06/18/2023 11:33 AM TENTS ASSEMBLER Screening for cervical cancer HEPATITIS PANEL, ACUTE Routine 06/18/2023 11:19 AM TENTS ASSEMBLER Screening for STD (sexually transmitted disease) COLONOSCOPY [...] MD LAB BLOOD ORDERABLES Final Resul t [facility] [address] [facility] Department [place] [address] * (ABNORMAL) eGFR (02/09/2025 9:03 AM CDT) [...] MD LAB BLOOD ORDERABLES Final Resul t [facility] [address] [facility] [place] [address] * (ABNORMAL) Differential, auto (02/09/2025 9:03 AM CDT) Neutrophil abs 8.26(H) 1.50 - 6.50 K/cumm Imm gran abs 0.07 0.00 - 0.10 K/cumm [facility] Lymphocyte abs 2.23 0.80 - 3.30 K/cumm [facility] Monocyte abs 0.68 0.20 - 0.80 K/cumm [facility] Eosinophil abs 0.27 0.00 - 0.50 K/cumm [facility] Basophil abs 0.03 0.00 - 0.10 K/cumm [facility] Neutrophil pct 71.6 % [facility] Comment: Interpretive Data Percent cell count reference ranges are not reported, since discordance with absolute values may lead to misinterpretation of CBC data. Current Interpretive Data was last revised on 2017. Imm gran pct 0.6 % [facility] Comment: Interpretive Data Percent cell count reference ranges are not reported, since discordance with absolute values may lead to misinterpretation of CBC data. Current Interpretive Data was last revised on 2017. Lymphocyte pct 19.3 % [facility] Comment: Interpretive Data Percent cell count reference ranges are not reported, since discordance with absolute values may lead to misinterpretation of CBC data. Current Interpretive Data was last revised on 2017. Monocyte pct 5.9 % [facility] Comment: Interpretive Data Percent cell count reference ranges are not reported, since discordance with absolute values may lead to misinterpretation of CBC data. Current Interpretive Data was last revised on 2017. Eosinophil pct 2.3 % [facility] Comment: Interpretive Data Percent cell count reference ranges are not reported, since discordance with absolute values may lead to misinterpretation of CBC data. Current Interpretive Data was last revised on 2017. Basophil pct 0.3 % [facility] Comment: Interpretive Data Percent cell count reference ranges are not reported, since discordance with absolute values may lead to misinterpretation of CBC data. Current Interpretive Data was last revised on 2017. Blood 02/09/2025 9:03 AM CDT 02/09/2025 9:37 AM CDT us Kelly Donohue MD LAB BLOOD ORDERABLES Final Resul t [facility] [address] [facility] [place] [address] * (ABNORMAL) CBC with auto differential (02/09/2025 9:03 AM CDT) WBC 11.54(H) 3.80 - 9.90 K/cumm Hgb 11.5(L) 11.9 - 15.5 g/dL [facility] Hct 35.3(L) 35.6 - 45.5 % [facility] Plt 338 150 - 400 K/cumm [facility] MPV 10.3 9.1 - 12.3 fL [facility] RBC 4.32 3.90 - 5.20 M/cumm [facility] MCV 81.7 81.3 - 96.4 fL [facility] MCH 26.6(L) 27.1 - 33.3 pg [facility] MCHC 32.6 32.3 - 35.7 g/dL [facility] RDW CV 15.7(H) 11.1 - 14.9 % [facility] RDW SD 46.5 35.7 - 48.1 fL [facility] NRBC abs 0.00 0.00 - 0.01 K/cumm [facility] Blood 02/09/2025 9:03 AM CDT 02/09/2025 9:37 AM CDT us Kelly Donohue MD LAB BLOOD ORDERABLES Final Resul t Performing Organization Address [facility] Co de Phone Number [facility] [place] [address] * Erythrocyte sedimentation rate (02/09/2025 9:03 AM CDT) [facility] Erythrocyte sedimentation rate 25 1 - 30 mm/hr Blood 02/09/2025 9:03 AM CDT 02/09/2025 9:37 AM CDT us Kelly Donohue MD LAB BLOOD ORDERABLES Final Resul t Performing Organization Address [facility] de Phone Number [facility] [place] [address] * CRP (acute phase) (02/09/2025 9:03 AM CDT) [facility] CRP 2.3 <=10.0 mg/L Blood 02/09/2025 9:03 AM CDT 02/09/2025 9:38 AM CDT us Kelly Donohue MD LAB BLOOD ORDERABLES Final Resul t Performing Organization Address [facility] de Phone Number [facility] Department [place] [address] * (ABNORMAL) Comprehensive metabolic panel (02/09/2025 9:03 AM CDT) [facility] Sodium 137 135 - 145 mmol/L Potassium, pl 5.0(H) 3.3 - 4.9 mmol/L [facility] Chloride 101 97 - 110 mmol/L [facility] CO2 25 22 - 32 mmol/L [facility] Anion gap 11 2 - 15 mmol/L [facility] BUN 39(H) 6 - 25 mg/dL [facility] Creatinine 1.98(H) 0.60 - 1.10 mg/dL [facility] Glucose 89 70 - 199 mg/dL [facility] Comment: Interpretive Data Fasting glucose >/= 126 [...] Calcium 9.8 8.5 - 10.3 mg/dL [facility] Bilirubin, total 0.2 0.1 - 1.2 mg/dL [facility] Protein, pl 7.5 6.5 - 8.5 g/dL [facility] Albumin 4.4 3.5 - 5.0 g/dL [facility] Alk phos 96 40 - 130 Units/L [facility] ALT 17 7 - 45 Units/L [facility] AST 22 10 - 45 Units/L [facility] Blood 02/09/2025 9:03 AM CDT 02/09/2025 9:38 AM CDT us Kelly Donohue MD LAB BLOOD ORDERABLES Final Resul t [facility] Department [place] [address] * Imaging SI Joint Injection Bilateral (72429) (02/04/2025 9:37 AM CDT) Narrative RAD_P[facility] - 02/04/2025 9:37 AM CDT The images from this study are not interpreted by Radiology. Please refer to the physician's procedure / OR operative note. us Reginald King MD IMG PAIN MGMT PROCEDU RES Final Result [facility] * SCREENING MAMMOGRAM BILATERAL W TEVIN (02/25/2024 2:49 PM TENTS ASSEMBLER) Anatomical Region Laterality Modality Breast Bilateral Mammography Impressions 02/25/2024 4:35 PM TENTS ASSEMBLER BI-RADS ATLAS category (overall): 1 - Negative There is no mammographic evidence of malignancy. A 1 year screening mammogram is recommended. The patient has been or will be contacted. We recommend annual screening mammography for women at average risk of breast cancer beginning at age 40, based on guidelines of the [employer] [employer] (ACR Practice Parameter for the Performance of Screening and Diagnostic Mammography) and [place] [employer]. For women with and elevated risk of breast cancer, please refer to the ACR Practice Parameter for specific screening recommendations. The patient will be entered into a reminder system with a target due date of 1 year for her next screening exam. Narrative 02/25/2024 4:35 PM TENTS ASSEMBLER SCREENING MAMMOGRAM BILATERAL W TEVIN: 02/25/24 The [...] with Genotyping (Molecular component) (06/18/2023 11:33 AM TENTS ASSEMBLER) HPV HR 16 Not Detected Not Detected RISHABH VELASQUEZ Comment:Testing performed by : [facility], [address] [place]., [address] HPV HR 18 Not Detected Not Detected RISHABH VELASQUEZ Comment:Testing performed by : [facility], [address] [facility], [place]., [address] HPV HR Non 16/18 Not Detected Not [...] this test have been verified by the [facility] Molecular Infectious Disease laboratory. Correlate with separately reported cytology results, as applicable. Interpretive data last revised 22 Testing performed by: [facility], [address] [place]., [address] Endocervical 06/18/2023 11:3 3 AM TENTS ASSEMBLER 06/19/2023 8:29 AM TENTS ASSEMBLER Narrative [facility] - 06/20/2023 5:06 AM TENTS ASSEMBLER Clinical history and diagnosis->wwe Number of vials->1 Testing type->Screening Last menstrual period (date if known)->postmenopausal Bel Weston CNM LAB BODY FLUIDS AND STOOLS ORDERABLES Final Result [facility]ISHAB[facility] [address] [facility] [place] [address] * Hepatitis panel, acute Blood (06/18/2023 11:19 AM TENTS ASSEMBLER) Hep A IgM Nonreactive Nonreactive [facility] Comment: Interpretive Data: If Hep A IgM Ab is reported as Equivocal, a new sample should be drawn in two weeks for testing. Current interpretive data was last revised on 19. Hep B core IgM Nonreactive Nonreactive [facility] Comment: Interpretive Data If HepB Core IgM Ab is reported as Equivocal, a new sample should be drawn in two weeks for testing. Current interpretive data was last revised on 19. Hep C Ab Nonreactive Nonreactive [facility] Comment: Antibodies to HCV not detected. Does [...] Nonreactive RISHABH Blood 06/18/2023 11:1 9 AM TENTS ASSEMBLER 06/18/2023 2:33 PM TENTS ASSEMBLER Bel Weston CNM LAB MICROBIOLOGY - GENERAL ORDERABLES Final Result RISHABH [address] [facility] [place] [address] * Colonoscopy (12/27/2020) Anatomical Region Laterality Modality Other Historical Provider ENDOSCOPY PROCEDURES Karla l Result from Last 3 Months or Most Recently Relevant to Health Maintenance Insurance [facility] Advance Directives For more information, please contact: [phone] Documents on File Type Date Recorded Patient Trolley Car Operator Expl anation ADVANCE DIRECTIVE 09/07/2024 10:18 AM Aparna Avila ower of Bonding Supervisor-Medical * LIMITED - No CPR (Latest Code [...] Agents on File Name Relationship Healthcare Agent Daveak p Communication Aparna Tripathi Daughter Health Care Agent Care Teams Watermaster Relationship Specialty Start Date End Date Malcolm Phelsp MD [facility] [address] [address] PCP - General Family Medicine 10/09/22 Kellie Barry MD [address] [place] [address] Consulting Physician Pulmonary Disease 09/15/23 Kelly Donohue MD [address] [place] [address] Fellow Rheumatology 02/03/24
--- OUTSIDE RECORDS SUMMARY | 2025-04-14 12:37 | XMS_ITS | Clinical Summary ---
Author Organization [employer] [facility] Address [address] [place] [address] Care Team Providers Care Business Process Representative Name Role Phone Unavailable Primary Care Provider [...] file Medical Devices Not on file Insurance [address] [place] [address]
--- OUTSIDE RECORDS SUMMARY | 2025-04-14 12:37 | XMS_ITS | Encounter Summary ---
Author Organization [facility] Address [address] [place] [address] Phone Care Team Providers Care Environmental Planner Name Role Phone Malcolm Phelps MD Primary Care Provider [phone] Kellie Barry MD Unavailable Kelly Donohue MD [...] Recorded In the past 12 months has [employer], gas, oil, or water [email or web address] threatened to shut off services in your [...] often do you attend chur ch or scientology services? Never 09/07/2024 Do you belong to any clubs o r organizations such as roman catholic groups, unions, fraternal or athletic groups, or [...] any time in the past [address] [facility], were you homeless or living in a snf (including now)? No 09/07/2024 Personal Safety Answer Date Recorded Have you ever been in or are you currently in a harmful physical or emotional relationship or is someone making you feel afraid or unsafe? Denies 09/05/2024 Comments No Sex and Gender Information Value Date Recorded Sex Assigned at Not on file Legal Sex Female 2:56 AM AUXILIARY EQUIPMENT OPERATOR Gender Identity Female 12/26/2020 11:37 PM CDT Sexual Orientation Straight 12/26/2020 11 :37 PM CDT documented as of this encounter Plan of Treatment Not on file documented as of this encounter Goals Goal Patient Goal Type Associated Problems Recent Progress Patient-Stated? Author CCM Chronic Pain Care Plan Chronic Care Management Improving( 8:34 AM AUXILIARY EQUIPMENT OPERATOR) No Elizabeth Wynne RN Note: Problem: Chronic [...] on filedocumented in this encounter Care Teams Environmental Planner Relationship Specialty Start Date End Date Malcolm Phelps MD [address] [address] PCP - General Family Medicine 10/09/22 Kellie Barry MD [address] [address] Consulting Physician Pulmonary Disease 09/15/23 Kelly Donohue MD [address] [address] Fellow Rheumatology 02/03/24 documented as of this encounter
--- NOTE | 2025-04-14 13:06 | ED.GENADULT ---
HPI - General Adult General Chief complaint: Extremity Injury, Lower Stated complaint: left foot pain X2 weeks, gen itching Time Seen by Provider: 04/14/25 11:55 History of Present Illness HPI narrative: A 59-year-old female presents emergency department for evaluation for left lateral foot pain. Patient denies any pain in her toes. Patient has no tenderness to the toes. Patient denies any specific falls or injuries. Patient is also complaining of intermittent itching. Patient states she does have lupus but is not on steroids. Patient states that the itching has been bothering her over the last few days. Patient does take hydroxyzine but states this has not been helping her. Related Data Home Medications ?Medication ?Instructions ?Recorded ?Confirmed ?Last Taken ?Type acyclovir 800 mg tablet 800 mg PO DAILY 02/25/23 12/19/24 Unknown History atorvastatin 20 mg tablet 20 mg PO QAM 02/25/23 12/19/24 Unknown History furosemide 40 mg tablet 40 mg PO DAILY 02/25/23 12/19/24 Unknown History gabapentin 600 mg tablet 600 mg PO Q8H 02/25/23 12/19/24 Unknown History hydroxychloroquine 200 mg tablet 200 mg PO DAILY 02/25/23 12/19/24 Unknown History hydroxyzine pamoate 25 mg capsule 25 mg PO QHS 02/25/23 12/19/24 Unknown History linaclotide 72 mcg capsule 145 mcg PO DAILY 02/25/23 12/19/24 Unknown History (Linzess) lisinopril 5 mg tablet 10 mg PO DAILY 02/25/23 12/19/24 Unknown History oxybutynin chloride 10 mg 10 mg PO DAILY 02/25/23 12/19/24 Unknown History tablet,extended release 24 hr tramadol 50 mg tablet 50 mg PO PRN 02/25/23 12/19/24 Unknown History denosumab 60 mg/mL subcutaneous 60 mg subcut [id number] 12/19/24 12/19/24 Unknown History syringe (Prolia) diclofenac sodium 1 % topical gel 2 g topical QID 12/19/24 12/19/24 Unknown History (Arthritis Pain (diclofenac)) docusate sodium 100 mg capsule 100 mg PO DAILY PRN constipation 12/19/24 12/19/24 Unknown History (Col-Rite) guanfacine 1 mg tablet 1 mg PO HS PRN insomnia 12/19/24 12/19/24 Unknown History lidocaine 5 % topical patch 1 patch transdermal Q24H 12/19/24 12/19/24 Unknown History prazosin 5 mg capsule 10 mg PO HS PRN insomina 12/19/24 12/19/24 Unknown History tizanidine 4 mg capsule 4 mg PO HS 12/19/24 12/19/24 Unknown History triamcinolone acetonide 0.1 % 1 applic topical QID 12/19/24 12/19/24 Unknown History topical cream varenicline tartrate 1 mg tablet 1 mg PO BID 12/19/24 12/19/24 Unknown History Allergies Allergy/AdvReac Type Severity Reaction Status Date / Time No Known Allergies Allergy Verified 04/14/25 11:24 Review of Systems Review of Systems: All systems reviewed & are unremarkable except as noted in HPI and below PMFSH Past Medical History Medical History Bowel obstruction History of systemic lupus erythematosus (SLE) History of depression History of hypertension Surgical History Surgical History History of appendectomy H/O foot surgery History of tonsillectomy Social History Social History Years smoked: 40 Smoking status: Current every day smoker Tobacco type: cigarettes Alcohol intake: never Alcohol use details: occasional Substance use: never Lack of Transportation: YES Lack of Food: Never True Current Housing: I Have Housing Concerned About Future Housing: No Difficulty Paying Gas/Electric Bills: No Difficulty Paying for Meds: No Currently Unemployed: No Education: Don't Know Difficulty w/ Childcare or Family Care: No Living arrangements: with family Occupation/Education: occupation Gender identity (if verbalized by the patient): Female Spiritual care concerns: No Exam Narrative: APPEARANCE: Well appearing, no pain, no distress, well-nourished. HEAD: normocephalic, atraumatic. EYES: PERRLA/EOMI, conjunctivae clear. NECK: Supple. No adenopathy, no masses. RESPIRATORY: Airway patent, respirations nonlabored. Clear to auscultation bilaterally, no rales, rhonchi, wheezing. CARDIOVASCULAR: Regular rate and rhythm without murmurs rubs or gallops. ABDOMINAL: Soft, nontender, nondistended, normal bowel sounds MUSCULOSKELETAL: Left lateral ankle pain NEURO: Alert. Cranial nerves II through XII intact. Good gait. Good coordination SKIN: Warm, dry. Normal Color Course Vital Signs Vital signs: Vital Signs Temperature 97.5 F L 04/14/25 10:48 Pulse Rate 90 04/14/25 10:48 Respiratory Rate 17 04/14/25 10:48 Blood Pressure 146/76 H 04/14/25 10:48 Pulse Oximetry 100 04/14/25 10:48 Oxygen Delivery Room Air 04/14/25 10:48 Temperature 97.7 F 04/14/25 11:22 Pulse Rate 79 04/14/25 11:22 Respiratory Rate 14 04/14/25 11:22 Blood Pressure 152/64 H 04/14/25 11:22 Pulse Oximetry 100 04/14/25 11:22 Oxygen Delivery Room Air 04/14/25 10:48 MDM MDM Narrative Medical decision making narrative: 59-year-old female presents emergency department for evaluation for itching and for left lateral foot pain. Do suspect patient has a left lateral foot strain. No acute fractures on the x-ray. Patient's x-ray did show concern for lucency of screw loosening and the toes. Patient has no evidence of infection and no tenderness to palpation at the toes. I do believe this is chronic loosening. This is unrelated to the patient's complaint. Patient was advised to use a cane or walker for limited weight-bearing on the affected foot. Patient also advised to use an Jim wrap. Patient also was advised to take Benadryl for the increased itching. Differential Diagnosis Differential Diagnosis: Ankle sprain, ankle fracture, for fracture Discharge Plan Discharge Clinical Impression: Strain of foot Patient Disposition: Home Condition: Stable Instructions: Antibiotic Form Additional Instructions: Replace the tramadol with [place] for additional pain control. Replace the hydroxyzine with Benadryl for itching control. Use an Jim wrap for increased comfort and support of the left foot. Utilize a cane or walker to limit weight-bearing. Have close follow-up with your primary care physician. Patient Language: Surinamese Prescriptions: New hydrocodone-acetaminophen 5-325 mg tablet 1 tablet PO Q12H PRN (Reason: pain) Qty: 14 0RF No Action furosemide 40 mg tablet 40 mg PO DAILY gabapentin 600 mg tablet 600 mg PO Q8H oxybutynin chloride 10 mg tablet extended release 24hr 10 mg PO DAILY acyclovir 800 mg tablet 800 mg PO DAILY atorvastatin 20 mg tablet 20 mg PO QAM hydroxyzine pamoate 25 mg capsule 25 mg PO QHS lisinopril 5 mg tablet 10 mg PO DAILY Linzess 72 mcg capsule 145 mcg PO DAILY tramadol 50 mg tablet 50 mg PO PRN hydroxychloroquine 200 mg tablet 200 mg PO DAILY varenicline tartrate 1 mg tablet 1 mg PO BID Prolia 60 mg/mL syringe 60 mg subcut [id number] lidocaine 5 % adhesive patch,medicated 1 patch transdermal Q24H guanfacine 1 mg tablet 1 mg PO HS PRN (Reason: insomnia) docusate sodium [Col-Rite] 100 mg capsule 100 mg PO DAILY PRN (Reason: constipation) prazosin 5 mg capsule 10 mg PO HS PRN (Reason: insomina) diclofenac sodium [Arthritis Pain (diclofenac)] 1 % gel 2 g topical QID Rx Instructions: apply to single elbow, wrist or hand; for hand includes palm/fingers/back of hand triamcinolone acetonide 0.1 % cream 1 applic TOPICAL QID tizanidine 4 mg capsule 4 mg PO HS pantoprazole 40 mg Tablet,Delayed Release (Dr/Ec) 40 mg PO BID Qty: 28 0RF colchicine [Colcrys] 0.6 mg Tablet 0.6 mg PO QAM Qty: 90 0RF doxycycline hyclate 100 mg Tablet 100 mg PO Q12HR Qty: 4 0RF aspirin 325 mg Tablet 650 mg PO Q8HR Qty: 2 0RF Follow-up/Referrals: Mattie,MD Malcolm [Primary Care Provider, Unknown]
== END 2025-04-14 13:21 | disposition home or self-care (01) ==
PROVIDERS: Emergency Provider Emergency Medicine; PCP Family Medicine
DX: S93.602A Unspecified sprain of left foot, initial encounter (principal); I10 Essential (primary) hypertension; D68.62 Lupus anticoagulant syndrome; F17.210 Nicotine dependence, cigarettes, uncomplicated
CPT/HCPCS: 73630; 99283